=== PATIENT | female | born 1980 | race Caucasian/White ===

== ENCOUNTER → 2018-09-19 | Outpatient (CLI) | payer OTHER ==
--- NOTE | 2018-09-19 16:13 | XR ---
EXAMINATION TYPE: XR chest 2V DATE OF EXAM: 09/19/2018 COMPARISON: NONE HISTORY: Cough TECHNIQUE: Frontal and lateral views of the chest are obtained. FINDINGS: There is no focal air space opacity, pleural effusion, or pneumothorax seen. The cardiac silhouette size is within normal limits. The osseous structures are intact. IMPRESSION: No acute cardiopulmonary process.
== END | disposition home or self-care (01) ==
LOC: RADXRMAIN 15:27
PROVIDERS: ATTEND Family Medicine
DX: R05 Cough (principal)
CPT/HCPCS: 71046

== ENCOUNTER → 2020-07-26 | Outpatient (CLI) | payer OTHER ==
--- NOTE | 2020-07-26 15:33 | XR ---
EXAMINATION TYPE: XR chest 2V DATE OF EXAM: 07/26/2020 COMPARISON: Chest x-ray September 19, 2018 HISTORY: Cough. TECHNIQUE: Frontal and lateral views of the chest are obtained. FINDINGS: Hair strands overlying lung apices. There is no new suspicious focal air space opacity, ple ural effusion, or pneumothorax seen. The cardiac silhouette size remains within normal limits. The osseous structures are intact. IMPRESSION: No suspicious new acute pulmonary process.
[2020-07-26 19:18] LABS: Basophils # (A) 0.07 X 10*3/uL (0.00-0.10); Basophils % (A) 0.7 %; Eosinophils % (A) 3.2 %; HCT 41.9 % (37.2-46.3); HGB 13.8 g/dL (12.0-15.0); Lymphocytes # (A) 3.56 X 10*3/uL (0.90-5.00); MCH 29.7 pg (27.0-32.0); MCHC 32.9 g/dL (32.0-37.0); MCV 90.3 fL (80.0-97.0); Mean Platelet Volume 9.7 fL (9.5-12.2); Monocytes # (A) 0.75 X 10*3/uL (0.20-1.00); Neutrophils # (A) 4.67 X 10*3/uL (1.80-7.70); Neutrophils % (A) 49.8 %; Platelet Count 465 X 10*3/uL (140-440); RBC 4.64 X 10*6/uL (4.10-5.20); RDW 13.9 % (11.5-14.5); WBC 9.38 X 10*3/uL (4.50-10.00)
[2020-07-26 19:26] LABS: African American GFR (CKD) 105.4 (60.0-200.0); Albumin 4.5 g/dL (3.80-4.90); Albumin/Globulin Ratio 1.96 (1.60-3.17); Anion Gap 4.2 mmol/L (4.00-12.00); Calcium 9.7 mg/dL (8.7-10.3); Carbon Dioxide 26.8 mmol/L (21.6-31.8); Globulin 2.3 g/dL (1.6-3.3); Non-African American GFR(CKD) 90.9 (60.0-200.0); Potassium 4.8 mmol/L (3.5-5.5); Total Bilirubin 0.3 mg/dL (0.3-1.2); Total Protein 6.8 g/dL (6.2-8.2)
[2020-07-26 21:17] LABS: Erythrocyte Sedimentation Rate 13 mm/Hr (0-20)
== END | disposition home or self-care (01) ==
LOC: LABWHC1 14:59
PROVIDERS: ATTEND Family Medicine
DX: R05 Cough (principal); I10 Essential (primary) hypertension; B89 Unspecified parasitic disease
CPT/HCPCS: 80053; 85652; 85025; 71046; 36415; U0003; C9803

== ENCOUNTER 2020-09-06 11:52 | Observation (INO) | payer OTHER ==
[2020-09-06 12:45] LABS: Basophils # (A) 0.1 k/uL (0-0.2); Basophils % (A) 0 %; Eosinophils # (A) 0.6 k/uL (0-0.7); Eosinophils % (A) 3 %; HCT 41.8 % (34.0-46.0); HGB 14.4 gm/dL (11.4-16.0); Lymphocytes # (A) 2.1 k/uL (1.0-4.8); Lymphocytes % (A) 11 %; MCH 30.5 pg (25.0-35.0); MCHC 34.4 g/dL (31.0-37.0); MCV 88.6 fL (80.0-100.0); Monocytes % (A) 6 %; Neutrophils # (A) 14.3 k/uL (1.3-7.7); Neutrophils % (A) 79 %; Platelet Count 506 k/uL (150-450); RBC 4.71 m/uL (3.80-5.40); RDW 13.1 % (11.5-15.5); WBC 18.2 k/uL (3.8-10.6)
--- NOTE | 2020-09-06 12:53 | ED ---
General Adult HPI - General Chief complaint: GI Bleed Stated complaint: abd pain Time Seen by Provider: 09/06/20 11:55 Source: patient, RN notes reviewed, old records reviewed Mode of arrival: ambulatory Limitations: no limitations - History of Present Illness Initial comments: This is a 40-year-old female who presents emergency Department with a past m edical history significant for ulcers colitis per patient states for last week she's been having some abdominal cramping but this morning she started having bright red blood and some bright red clotting. Patient denies any fever chills. Patient denies any dysuria hematuria or urinary frequency per patient denies any vomiting. Patient denies any chest pain difficult breathing shortness of breath. Patient denies any back pain. - Related Data Home Medications Medication Instructions Recorded Confirmed Acetaminophen Tab [Tylenol] 650 mg PO Q4H PRN 09/06/20 09/06/20 Dicyclomine [Bentyl] 10 mg PO TID PRN 09/06/20 09/06/20 Famotidine [Pepcid AC] 10 mg PO BID PRN 09/06/20 09/06/20 L.acidoph,Paracasei, B.lactis 1 cap PO DAILY 09/06/20 09/06/20 [Probiotic] Mesalamine [Delzicol] 800 mg PO TID 09/06/20 09/06/20 Simethicone [Gas-X] 125 mg PO QID PRN 09/06/20 09/06/20 Allergies Allergy/AdvReac Type Severity Reaction Status Date / Time alprazolam [From Xanax] Allergy Unknown Verified 09/06/20 14:07 azithromycin Allergy Unknown Verified 09/06/20 13:29 codeine Allergy Unknown Verified 09/06/20 13:29 fentanyl citrate Allergy Unknown Verified 09/06/20 13:29 [From Sublimaze (PF)] Review of Systems ROS Statement: Those systems with pertinent positive or pertinent negative responses have been documented in the HPI. ROS Other: All systems not noted in ROS Statement are negative. Past Medical History Past Medical History: Cancer Additional Past Medical History / Comment(s): Ulceritve colitis, cervical CA History of Any Multi-Drug Resistant Organisms: None Reported Past Surgical History: No Surgical Hx Reported Additional Past Surgical History / Comment(s): Cervial sx Past Psychological History: No Psychological Hx Reported Smoking Status: Current every day smoker Past Alcohol Use History: None Reported Past Drug Use History: Marijuana General Exam - General Exam Comments Initial Comments: GENERAL: Patient is well-developed and well-nourished. Patient is nontoxic and well- hydrated and is in mild distress. ENT: Neck is soft and supple. No significant lymphadenopathy is noted. Oropharynx is clear. Moist mucous membranes. Neck has full range of motion without eliciting any pain. EYES: The sclera were anicteric and conjunctiva were pink and moist. Extraocular movements were intact and pupils were equal round and reactive to light. Eyelids were unremarkable. PULMONARY: Unlabored respirations. Good breath sounds bilaterally. No audible rales rhonchi or wheezing was noted. CARDIOVASCULAR: There is a regular rate and rhythm without any murmurs gallops or rubs. ABDOMEN: Minimal lower abdominal pain SKIN: Skin is clear with no lesions or rashes and otherwise unremarkable. NEUROLOGIC: Patient is alert and oriented x3. Cranial nerves II through XII are grossly intact. Motor and sensory are also intact. Normal speech, volume and content. Symmetrical smile. MUSCULOSKELETAL: Normal extremities with adequate strength and full range of motion. No lower extremity swelling or edema. No calf tenderness. LYMPHATICS: No significant lymphadenopathy is noted PSYCHIATRIC: Normal psychiatric evaluation. Limitations: no limitations Course Vital Signs 09/06/20 09/06/20 09/06/20 11:55 12:00 12:30 Temperature 98.2 F Pulse Rate 71 72 71 Respiratory 22 15 16 Rate Blood Pressure 113/68 113/68 111/79 O2 Sat by Pulse 100 99 98 Oximetry 09/06/20 09/06/20 09/06/20 13:30 15:00 15:30 Temperature Pulse Rate 68 56 L 62 Respiratory 18 18 18 Rate Blood Pressure 109/71 106/78 O2 Sat by Pulse 98 Oximetry Medical Decision Making - Medical Decision Making EKG shows normal sinus rhythm at 73 bpm IN interval 112 QRS is 90 QT interval 400 QTC is 440. Patient's EKG shows no ST segment elevation or depression. - Lab Data Result diagrams: 09/06/20 12:31 09/06/20 12:31 Lab Results 09/06/20 09/06/20 09/06/20 Range/Units 12:31 12:31 12:31 WBC 18.2 H (3.8-10.6) k/uL RBC 4.71 (3.80-5.40) m/uL Hgb 14.4 (11.4-16.0) gm/dL Hct 41.8 (34.0-46.0) % MCV 88.6 (80.0-100.0) fL MCH 30.5 (25.0-35.0) pg MCHC 34.4 (31.0-37.0) g/dL RDW 13.1 (11.5-15.5) % Plt Count 506 H (150-450) k/uL MPV 7.0 Neutrophils % 79 % Lymphocytes % 11 % Monocytes % 6 % Eosinophils % 3 % Basophils % 0 % Neutrophils # 14.3 H (1.3-7.7) k/uL Lymphocytes # 2.1 (1.0-4.8) k/uL Monocytes # 1.0 (0-1.0) k/uL Eosinophils # 0.6 (0-0.7) k/uL Basophils # 0.1 (0-0.2) k/uL PT 9.9 (9.0-12.0) sec INR 0.9 (<1.2) APTT 23.9 (22.0-30.0) sec Sodium 140 (137-145) mmol/L Potassium 4.0 (3.5-5.1) mmol/L Chloride 109 H (98-107) mmol/L Carbon Dioxide 22 (22-30) mmol/L Anion Gap 9 mmol/L BUN 10 (7-17) mg/dL Creatinine 0.69 (0.52-1.04) mg/dL Est GFR (CKD-EPI)AfAm >90 (>60 ml/min/1.73 sqM) Est GFR (CKD-EPI)NonAf >90 (>60 ml/min/1.73 sqM) Glucose 99 (74-99) mg/dL Calcium 9.7 (8.4-10.2) mg/dL Total Bilirubin 0.3 (0.2-1.3) mg/dL AST 23 (14-36) U/L ALT 15 (4-34) U/L Alkaline Phosphatase 77 (38-126) U/L Total Protein 7.2 (6.3-8.2) g/dL Albumin 4.3 (3.5-5.0) g/dL Stool Occult Blood (Negative) C. difficile (EIA) Intrp (Negative) Blood Type Blood Type Confirm Blood Type Recheck Bld Type Recheck Status Antibody Screen Spec Expiration Date 09/06/20 09/06/20 09/06/20 Range/Units 12:31 12:51 12:51 WBC (3.8-10.6) k/uL RBC (3.80-5.40) m/uL Hgb (11.4-16.0) gm/dL Hct (34.0-46.0) % MCV (80.0-100.0) fL MCH (25.0-35.0) pg MCHC (31.0-37.0) g/dL RDW (11.5-15.5) % Plt Count (150-450) k/uL MPV Neutrophils % % Lymphocytes % % Monocytes % % Eosinophils % % Basophils % % Neutrophils # (1.3-7.7) k/uL Lymphocytes # (1.0-4.8) k/uL Monocytes # (0-1.0) k/uL Eosinophils # (0-0.7) k/uL Basophils # (0-0.2) k/uL PT (9.0-12.0) sec INR (<1.2) APTT (22.0-30.0) sec Sodium (137-145) mmol/L Potassium (3.5-5.1) mmol/L Chloride (98-107) mmol/L Carbon Dioxide (22-30) mmol/L Anion Gap mmol/L BUN (7-17) mg/dL Creatinine (0.52-1.04) mg/dL Est GFR (CKD-EPI)AfAm (>60 ml/min/1.73 sqM) Est GFR (CKD-EPI)NonAf (>60 ml/min/1.73 sqM) Glucose (74-99) mg/dL Calcium (8.4-10.2) mg/dL Total Bilirubin (0.2-1.3) mg/dL AST (14-36) U/L ALT (4-34) U/L Alkaline Phosphatase (38-126) U/L Total Protein (6.3-8.2) g/dL Albumin (3.5-5.0) g/dL Stool Occult Blood Positive H (Negative) C. difficile (EIA) Intrp Negative (Negative) Blood Type Blood Type Confirm O Positive Blood Type Recheck Bld Type Recheck Status Antibody Screen Spec Expiration Date 09/06/20 Range/Units 13:04 WBC (3.8-10.6) k/uL RBC (3.80-5.40) m/uL Hgb (11.4-16.0) gm/dL Hct (34.0-46.0) % MCV (80.0-100.0) fL MCH (25.0-35.0) pg MCHC (31.0-37.0) g/dL RDW (11.5-15.5) % Plt Count (150-450) k/uL MPV Neutrophils % % Lymphocytes % % Monocytes % % Eosinophils % % Basophils % % Neutrophils # (1.3-7.7) k/uL Lymphocytes # (1.0-4.8) k/uL Monocytes # (0-1.0) k/uL Eosinophils # (0-0.7) k/uL Basophils # (0-0.2) k/uL PT (9.0-12.0) sec INR (<1.2) APTT (22.0-30.0) sec Sodium (137-145) mmol/L Potassium (3.5-5.1) mmol/L Chloride (98-107) mmol/L Carbon Dioxide (22-30) mmol/L Anion Gap mmol/L BUN (7-17) mg/dL Creatinine (0.52-1.04) mg/dL Est GFR (CKD-EPI)AfAm (>60 ml/min/1.73 sqM) Est GFR (CKD-EPI)NonAf (>60 ml/min/1.73 sqM) Glucose (74-99) mg/dL Calcium (8.4-10.2) mg/dL Total Bilirubin (0.2-1.3) mg/dL AST (14-36) U/L ALT (4-34) U/L Alkaline Phosphatase (38-126) U/L Total Protein (6.3-8.2) g/dL Albumin (3.5-5.0) g/dL Stool Occult Blood (Negative) C. difficile (EIA) Intrp (Negative) Blood Type O Positive Blood Type Confirm Blood Type Recheck No Previous Record Bld Type Recheck Status CABO Indicated Antibody Screen NEGATIVE Spec Expiration Date 09/09/20202324 Disposition Clinical Impression: GI bleed, History of ulcerative colitis Disposition: ADMITTED IP TO THIS HOSP Referrals: Isaac Conner MD [Primary Care Provider] - 1-2 days Time of Disposition: 16:15
[2020-09-06 12:58] LABS: ALT 15 U/L (4-34); AST 23 U/L (14-36); African American GFR (CKD) >90 (>60 ml/min/1.73 sqM); Albumin 4.3 g/dL (3.5-5.0); Alkaline Phosphatase 77 U/L (38-126); Anion Gap 9 mmol/L; Blood Urea Nitrogen 10 mg/dL (7-17); Calcium 9.7 mg/dL (8.4-10.2); Carbon Dioxide 22 mmol/L (22-30); Chloride 109 mmol/L (98-107); Glucose 99 mg/dL (74-99); Non-African American GFR(CKD) >90 (>60 ml/min/1.73 sqM); Sodium 140 mmol/L (137-145); Total Bilirubin 0.3 mg/dL (0.2-1.3); Total Protein 7.2 g/dL (6.3-8.2)
[2020-09-06 13:31] LABS: INR 0.9 (<1.2); Partial Thromboplastin Time 23.9 sec (22.0-30.0); Prothrombin Time 9.9 sec (9.0-12.0)
[2020-09-06] MEDS ORDERED: SODIUM CHLORIDE 0.9% 1,000 ML IV ONE (16:15)
[2020-09-06] MEDS ORDERED: LORazepam 2 MG/ML INJ IV STA (16:57)
[2020-09-06] MEDS ORDERED: ONDANSETRON 4 MG/2 ML VIAL IVP PRN (16:58)
[2020-09-06 17:33] LABS: HCT 41.3 % (34.0-46.0); HGB 13.7 gm/dL (11.4-16.0); MCH 29.8 pg (25.0-35.0); MCHC 33.2 g/dL (31.0-37.0); MCV 89.9 fL (80.0-100.0); Mean Platelet Volume 7.3; Platelet Count 460 k/uL (150-450); RBC 4.59 m/uL (3.80-5.40); RDW 13.6 % (11.5-15.5)
[2020-09-06] MEDS ORDERED: FAMOTIDINE 20 MG TAB PO PRN (21:11)
[2020-09-06] MEDS: NICOTINE 21MG/24HR PATCH TRANSDERM SCH (22:24)
[2020-09-06] MEDS: LORazepam 2 MG/ML INJ IV PRN (22:25)
[2020-09-07] MEDS: BALSALAZIDE DISODIUM 750 MG CAPSULE PO SCH ×4 (00:25→20:58)
[2020-09-07] MEDS: metroNIDAZOLE-NS PMX 500 MG in SALINE 1 100ML.BAG IVPB SCH ×3 (00:27→15:38)
[2020-09-07] MEDS: LORazepam 2 MG/ML INJ IV PRN ×3 (04:07→23:24)
--- NOTE | 2020-09-07 04:17 | HP ---
HISTORY AND PHYSICAL HISTORY OF PRESENT ILLNESS: This 40-year-old white female came with 5 episodes of GI bleeding, bright red blood per rectum. GI consult is pending. Monitor hemoglobin and check again in the morning. He is having no chest pain, shortness of breath. Denies any fever, chills. No frequency, urgency, hesitancy. MEDICATIONS: Home medicines: Bentyl 10 t.i.d., Pepcid 10 b.i.d., Tylenol 650 q.6 p.r.n., probiotic daily, mesalamine 800 mg t.i.d., Gas-X 125 q.i.d. p.r.n. ALLERGIES: XANAX, AZITHROMYCIN, CODEINE, FENTANYL. REVIEW OF SYSTEMS: Fourteen-point review of systems negative except for mentioned in HPI. PAST MEDICAL HISTORY: Cancer, ulcerative colitis, cervical cancer. SOCIAL HISTORY: Current everyday smoker, marijuana. PHYSICAL EXAMINATION: Vital signs stable. Afebrile. Cardiovascular S1, S2. Lungs transmitted upper sounds. GI soft, nontender. Hematology: Negative Homans. Psych: Fair mood and affect. Ophthalmologic: Pupils equal, round, reactive. SKIN: No rash, excoriations or bruising. Blood pressure is 109-106 over 60s to 70s. O2 98%, pulse 60s to 70s. EXTREMITIES: No cyanosis, clubbing, edema. Labs reviewed. ASSESSMENT: 1. Gastrointestinal bleed. 2. History of ulcerative colitis. 3. Worsening bleeding. Stabilize for hemoglobin. Check in the morning. CBC. Wait for GI consult. Continue on possible Flagyl IV. MMODL / IJN: [id number] /
[2020-09-07] MEDS: NICOTINE 21MG/24HR PATCH TRANSDERM SCH (07:36)
[2020-09-07] MEDS: LACTOBACILLUS ACIDOPH & BULGAR 1 EACH PACKET PO SCH (07:37)
[2020-09-07] MEDS: methylPREDNISolone SOD SUCCI 40 MG/ML 1 ML VIAL IV SCH ×3 (10:00→23:23)
[2020-09-07] MEDS ORDERED: PIPERACILLIN-TAZOBACTAM 3.375 GM in SODIUM CHLORIDE 0.9% 100 ML IVPB SCH (10:00)
[2020-09-07 10:25] LABS: Basophils # (A) 0.04 X 10*3/uL (0.00-0.10); Basophils % (A) 0.6 %; Eosinophils % (A) 4.4 %; HCT 38.4 % (37.2-46.3); HGB 12.7 g/dL (12.0-15.0); Lymphocytes # (A) 2.66 X 10*3/uL (0.90-5.00); MCH 30.4 pg (27.0-32.0); MCHC 33.1 g/dL (32.0-37.0); MCV 91.9 fL (80.0-97.0); Mean Platelet Volume 9.7 fL (9.5-12.2); Monocytes # (A) 0.86 X 10*3/uL (0.20-1.00); Monocytes % (A) 12.6 %; Neutrophils # (A) 2.95 X 10*3/uL (1.80-7.70); Neutrophils % (A) 43.3 %; Platelet Count 410 X 10*3/uL (140-440); RBC 4.18 X 10*6/uL (4.10-5.20); RDW 14.1 % (11.5-14.5); WBC 6.82 X 10*3/uL (4.50-10.00)
[2020-09-07] MEDS: IOPAMIDOL CONTRAST (ORAL USE) VIAL PO PRN ×2 (10:35→11:31)
--- NOTE | 2020-09-07 12:44 | CT ---
EXAMINATION TYPE: CT abdomen pelvis w con DATE OF EXAM: 09/07/2020 COMPARISON: None HISTORY: Generalized abdominal pain. History of ulcerative colitis. CT DLP: 1178 mGycm CONTRAST: CT scan of the abdomen and pelvis is performed with Oral Contrast and with IV Contrast, patient injec stacia with 100ml mL of Isovue 300. FINDINGS: LUNG BASES-: No visible nodule. No infiltrate. LIVER/GB: No calcified gallstones. No space occupying hepatic lesion. Biliary tree is of normal ca liber. PANCREAS: No inflammation. No distinct mass. SPLEEN: No splenic enlargement. No lesion seen. ADRENALS: No nodule. No thickening. KIDNEYS/BLADDER: No hydronephrosis. No nephrolithiasis. No distinct renal mass. Urinary bladder g rossly unremarkable. BOWEL: Normal appendix. Normal bowel caliber. No inflammation. GENITAL ORGANS: Left ovarian cyst measuring 2.4 cm. Uterus and right ovary are unremarkable. LYMPH NODES: No greater than 1cm abdominal or pelvic lymph nodes are appreciated. AORTA: No significant abnormality. OSSEOUS STRUCTURES: No significant abnormality is seen. OTHER: No significant additional abnormality is seen. IMPRESSION: 1. Left ovarian cyst measuring 2.4 cm.
[2020-09-07 15:55] LABS: African American GFR (CKD) 123.9 (60.0-200.0); Albumin 3.8 g/dL (3.80-4.90); Albumin/Globulin Ratio 1.65 (1.60-3.17); Anion Gap 10.1 mmol/L (4.00-12.00); BUN/Creat Ratio 11.43 Ratio (12.00-20.00); Calcium 8.8 mg/dL (8.7-10.3); Carbon Dioxide 20.9 mmol/L (21.6-31.8); Globulin 2.3 g/dL (1.6-3.3); Non-African American GFR(CKD) 106.9 (60.0-200.0); Potassium 3.9 mmol/L (3.5-5.5); Total Bilirubin 0.3 mg/dL (0.2-1.2); Total Protein 6.1 g/dL (6.2-8.2)
--- NOTE | 2020-09-07 16:29 | P.CONS ---
History of Present Illness - Reason for Consult Consult date: 09/07/20 Abdominal pain, GI bleed Requesting physician: Isaac Conner - Chief Complaint GI bleed, abdominal pain - History of Present Illness This is a pleasant 40-year-old white female who presented to the emergency department with complaints of severe onset of abdominal pain and bright red blood per rectum that started yesterday along with passing clots. He has a past medical history that includes cervical cancer, ulcerative colitis, she is a pack per day smoker, and daily marijuana and a user. She states that she started having bleeding on Sunday into Sunday, however there was some nausea and diarrhea that started a week ago she was having diarrhea up to as much as once an hour for 12 hours. She states due to her history of ulcerative colitis she put herself on clear liquid diet. She was taking mesalamine and Bentyl at home, she states that over the last year she has not had any problems with her ulcerative colitis therefore she was decreasing her dosage on her mesalamine on her own. However she started to increase it back to the daily dose of 3 times a day. She states that she follows with Dr. Lucian Devlin states she was diagnosed 2-3 years ago she was last hospitalized at [facility] approximately 3 years ago. She states her last endoscopy she had an upper and lower she believes 2-3 years ago at [facility]. Since being admitted to the hospital she's not had further bleeding this morning, however it did state she still had some blood with her stool last night. She still having diarrhea which he states is approximately every other hour. Her Clostridium difficile toxin was negative. Review of Systems REVIEW OF SYSTEMS: CARDIOPULMONARY: No chest pain or shortness of breath. Gastrointestinal: Abdominal pain. No nausea or vomiting. No hematemesis, coffee-ground emesis. For rectal bleeding. GENITOURINARY: No dysuria or hematuria. MUSCULOSKELETAL: Reports normal range of motion., Joint pain. SKIN: No rashes. No jaundice. ENDOCRINE: No chills, fevers. No excessive weight gain or loss. No polydipsia or polyuria. PSYCHIATRIC: Unremarkable. NEUROLOGY: No change in mental status. Denies dizziness, headache. ENT: Vision unremarkable. CONSTITUTIONAL: No recent weight loss. No fever, chills, night sweats. Past Medical History Past Medical History: Cancer Additional Past Medical History / Comment(s): Ulceritve colitis, cervical CA History of Any Multi-Drug Resistant Organisms: None Reported Past Surgical History: No Surgical Hx Reported Additional Past Surgical History / Comment(s): Cervial sx Past Psychological History: No Psychological Hx Reported Smoking Status: Current every day smoker Past Alcohol Use History: None Reported Past Drug Use History: Marijuana Medications and Allergies Home Medications Medication Instructions Recorded Confirmed Type Acetaminophen Tab [Tylenol] 650 mg PO Q4H PRN 09/06/20 09/06/20 History Dicyclomine [Bentyl] 10 mg PO TID PRN 09/06/20 09/06/20 History Famotidine [Pepcid AC] 10 mg PO BID PRN 09/06/20 09/06/20 History L.acidoph,Paracasei, B.lactis 1 cap PO DAILY 09/06/20 09/06/20 History [Probiotic] Mesalamine [Delzicol] 800 mg PO TID 09/06/20 09/06/20 History Simethicone [Gas-X] 125 mg PO QID PRN 09/06/20 09/06/20 History Allergies Allergy/AdvReac Type Severity Reaction Status Date / Time alprazolam [From Xanax] Allergy Unknown Verified 09/06/20 14:07 azithromycin Allergy Unknown Verified 09/06/20 13:29 codeine Allergy Unknown Verified 09/06/20 13:29 fentanyl citrate Allergy Unknown Verified 09/06/20 13:29 [From Sublimaze (PF)] Physical Exam Vitals: Vital Signs Temp Pulse Pulse Pulse Resp BP BP 09/07/20 14:07 99 F 76 16 91/55 09/07/20 07:00 98.7 F 66 16 87/55 09/07/20 00:47 98.0 F 74 16 97/65 09/06/20 18:52 98.5 F 60 14 95/67 09/06/20 18:18 98.4 F 56 L 18 88/52 09/06/20 16:44 95 18 115/72 09/06/20 15:30 62 18 Pulse Ox 09/07/20 14:07 96 09/07/20 07:00 97 09/07/20 00:47 97 09/06/20 18:52 96 09/06/20 18:18 99 09/06/20 16:44 98 09/06/20 15:30 Intake and Output 09/07/20 09/07/20 09/07/20 06:59 14:59 22:59 Intake Total 1440 1979 Balance 1440 1979 Intake: Intake, IV Titration 900 800 Amount Piperacillin-Tazobactam 3 100 .375 gm In Sodium Chloride 0.9% 100 ml @ 25 mls/hr IVPB Q8H [facility] Rx#: [id number] Sodium Chloride 0.9% 1, 800 600 000 ml @ 75 mls/hr IV . [id number] ONE Rx#:[id number] metroNIDAZOLE-NS PMX 500 100 100 mg In Saline 1 100ml.bag @ 100 mls/hr IVPB Q8HR [facility] Rx#:[id number] Oral 540 1180 Other: Voiding Method Toilet # Voids 3 5 General appearance: The patient is alert, oriented, appears in no acute distre ss. HET: Head is normocephalic and atraumatic. Conjunctiva pink, sclera anicteric. Oropharynx is clear without lesions. Neck: Supple without lymphadenopathy. Trachea midline. Heart: S1 S2. Regular rate and rhythm. Lungs: Clear to auscultation. Abdomen: Soft, nontender, nondistended. Extremities: Normal skin color and turgor. No pedal edema. Neurological: No focal deficits. Alert and oriented 3. Results CBC & Chem 7: 09/07/20 04:35 09/07/20 04:35 Labs: Abnormal Lab Results - Last 24 Hours (Table) 09/06/20 09/06/20 09/07/20 Range/Units 12:51 16:40 04:35 WBC 15.0 H (3.8-10.6) k/uL Plt Count 460 H (150-450) k/uL C-Reactive Protein 2.5 H (<1.0) mg/dL Stool Occult Blood Positive H (Negative) Microbiology - Last 24 Hours (Table) 09/06/20 12:31 Stool Culture - Preliminary Stool CT scan - abdomen: report reviewed (Left ovarian cyst measuring 2.4 cm. No inflammation seen in the bowel.) Assessment and Plan (1) GI bleed Narrative/Plan: This a 40-year-old female who presented to the emergency room with complaints of abdominal pain and lower GI bleed that started Sunday night into Sunday. She states she was having multiple episodes of bloody bowel movements. She states she has a history of ulcerative colitis diagnosed 2-3 years ago and follows with . Her outpatient medications included mesalamine 800 mg 3 times a day, however patient had decreased and was only taking 2 tablets a day due to cost of medication. She also states that the week before she had some nausea and diarrhea with one day having diarrhea every hour up to 12 hours. She states her last and this Evaluation was at [facility] 2-3 years ago where she states she had an upper and lower endoscopy. At that time she was diagnosed with the ulcerative colitis. She had a C. diff upon admission that was reported as negative. Her symptoms are improving already today. CT of the abdomen was ordered which does not show any bowel inflammation, only a left ovarian cyst measuring 2.4 cm. Current Visit: Yes Status: Acute Code(s): K92.2 - GASTROINTESTINAL HEMORRHAGE, UNSPECIFIED SNOMED Code(s): 60747911 (2) History of ulcerative colitis Current Visit: Yes Status: Acute Code(s): Z87.19 - PERSONAL HISTORY OF OTHER DISEASES OF THE DIGESTIVE SYSTEM SNOMED Code(s): 628945826 Plan: 1. Continue symptomatic and supportive care 2. Clear liquid diet 3. CT of abdomen and pelvis ordered and reviewed 4. Sed rate CRP ordered 5. Solu-Medrol 20 mg every 8 hours 6. Discontinue IV antibiotics 7. Repeat CBC in the morning Thank you for this consultation, we will continue to follow Dr. Jean Pierre Woods I agree with the dictator's note, documented as a scribe by Queenie Barger.
[2020-09-08] MEDS: SIMETHICONE 80 MG CHEWABLE PO PRN ×2 (01:00→16:04)
--- NOTE | 2020-09-08 06:18 | PN ---
PROGRESS NOTE A white female who has had minimal bleeding today. Hemoglobin is stable. GI doctor saw her and ordered a CT scan of the abdomen and pelvis which is normal. She apparently cut down her ulcerative colitis medicines from 8 pills a day to 2 pills a day to save money. Cardiovascular S1-S2. Lungs clear. GI soft, increased bowel sounds. Hematology negative Homans. ASSESSMENT: 1. Ulcerative colitis. 2. Gastrointestinal bleed, stable. Back on home medications. IV Flagyl, IV Solu-Medrol. Discharge home in the morning if she is stable. MMODL / IJN: [id number] /
[2020-09-08] MEDS: LORazepam 2 MG/ML INJ IV PRN ×2 (08:17→16:05)
[2020-09-08] MEDS: DICYCLOMINE 10 MG CAP PO PRN ×2 (08:17→16:04)
[2020-09-08] MEDS: NICOTINE 21MG/24HR PATCH TRANSDERM SCH (08:17)
[2020-09-08] MEDS: methylPREDNISolone SOD SUCCI 40 MG/ML 1 ML VIAL IV SCH ×2 (08:18→16:05)
[2020-09-08] MEDS: LACTOBACILLUS ACIDOPH & BULGAR 1 EACH PACKET PO SCH (08:18)
[2020-09-08] MEDS: BALSALAZIDE DISODIUM 750 MG CAPSULE PO SCH ×3 (08:19→22:04)
--- NOTE | 2020-09-08 15:01 | P.PN ---
Subjective Progress Note Date: 09/08/20 Principal diagnosis: Abdominal pain, GI bleed This is a 40-year-old female who presented to emergency department with complaints of abdominal pain and bloody bowel movements. She has a past medical history including ulcerative colitis which was diagnosed 2-3 years ago. She fol lows with and was on mesalamine, however she was not taking as prescribed and only taking 2 tablets a day. Today she still having some mild lower abdominal discomfort, diarrhea has decreased in frequency, reported as dark brown. Denies any nausea or vomiting, is tolerating her clear liquid and would like to increase her diet. Objective - Vital Signs Vital signs: Vital Signs Temp 97.9 F 09/08/20 07:00 Pulse 72 09/08/20 07:00 Resp 18 09/08/20 07:00 BP 101/59 09/08/20 07:00 Pulse Ox 96 09/08/20 07:00 Intake & Output 09/07/20 09/08/20 09/08/20 18:59 06:59 18:59 Intake Total 2280 Balance 2280 Intake: Intake, IV Titration 800 Amount Piperacillin-Tazobactam 3 100 .375 gm In Sodium Chloride 0.9% 100 ml @ 25 mls/hr IVPB Q8H [facility] Rx#: [id number] Sodium Chloride 0.9% 1, 600 000 ml @ 75 mls/hr IV . [id number] ONE Rx#:[id number] metroNIDAZOLE-NS PMX 500 100 mg In Saline 1 100ml.bag @ 100 mls/hr IVPB Q8HR [facility] Rx#:[id number] Oral 1480 Other: Voiding Method Toilet # Voids 5 2 # Bowel Movements 1 - Exam General appearance: The patient is alert, oriented, appears in no acute distress. HET: Head is normocephalic and atraumatic. Conjunctiva pink. Sclera anicteric. Neck: Supple without lymphadenopathy. Abdomen: Soft, nontender, nondistended with bowel sounds. No guarding or rigidity. Extremities: Normal skin color and turgor. No pedal edema Skin: No rashes, no jaundice Neurological: No focal deficits. Alert and oriented 3. - Labs CBC & Chem 7: 09/07/20 04:35 09/07/20 04:35 Labs: Abnormal Lab Results - Last 24 Hours (Table) 09/07/20 09/07/20 Range/Units 04:35 04:35 Carbon Dioxide 20.9 L (21.6-31.8) mmol/L BUN 8.0 L (9.0-27.0) mg/dL BUN/Creatinine Ratio 11.43 L (12.00-20.00) Ratio C-Reactive Protein 2.5 H (<1.0) mg/dL Total Protein 6.1 L (6.2-8.2) g/dL Assessment and Plan (1) GI bleed Narrative/Plan: This a 40-year-old female who presented to the emergency room with complaints of abdominal pain and lower GI bleed that started Sunday night into Sunday. She states she was having multiple episodes of bloody bowel movements. She states she has a history of ulcerative colitis diagnosed 2-3 years ago and follows with . Her outpatient medications included mesalamine 800 mg 3 times a d ay, however patient had decreased and was only taking 2 tablets a day due to cost of medication. She also states that the week before she had some nausea and diarrhea with one day having diarrhea every hour up to 12 hours. She states her last and this Evaluation was at [facility] 2-3 years ago where she states she had an upper and lower endoscopy. At that time she was diagnosed with the ulcerative colitis. She had a C. diff upon admission that was reported as negative. Her symptoms are improving already today. CT of the abdomen was ordered which does not show any bowel inflammation, only a left ovarian cyst measuring 2.4 cm. Current Visit: Yes Status: Acute Code(s): K92.2 - GASTROINTESTINAL HEMORRHAG E, UNSPECIFIED SNOMED Code(s): 91849460 (2) History of ulcerative colitis Current Visit: Yes Status: Acute Code(s): Z87.19 - PERSONAL HISTORY OF OTHER DISEASES OF THE DIGESTIVE SYSTEM SNOMED Code(s): 551754597 Plan: 1. Continue symptomatic and supportive care 2. Liquid diet, advance to low fiber diet in the morning 3. CT of abdomen and pelvis ordered and reviewed 4. Continue Solu-Medrol 20 mg every 8 hours 5. Will transition to oral prednisone for long taper dose upon discharge, with close follow-up with gastroenterology Thank you for this consultation, we will continue to follow Dr. Jean Pierre Woods I agree with the dictator's note, documented as a scribe by Queenie Barger.
[2020-09-09] MEDS: methylPREDNISolone SOD SUCCI 40 MG/ML 1 ML VIAL IV SCH ×3 (00:24→16:56)
[2020-09-09] MEDS: DICYCLOMINE 10 MG CAP PO PRN ×3 (00:25→21:27)
[2020-09-09] MEDS: LORazepam 2 MG/ML INJ IV PRN ×3 (00:25→21:26)
[2020-09-09] MEDS: BALSALAZIDE DISODIUM 750 MG CAPSULE PO SCH ×3 (08:46→21:38)
[2020-09-09] MEDS: LACTOBACILLUS ACIDOPH & BULGAR 1 EACH PACKET PO SCH (08:47)
[2020-09-09] MEDS: NICOTINE 21MG/24HR PATCH TRANSDERM SCH (08:47)
[2020-09-09] MEDS: ACETAMINOPHEN TAB 325 MG TAB PO PRN ×2 (11:20→21:26)
[2020-09-09 12:26] LABS: HGB 14.3 gm/dL (11.4-16.0); RBC 4.83 m/uL (3.80-5.40); WBC 15.7 k/uL (3.8-10.6)
[2020-09-09 12:27] LABS: MCH 29.6 pg (25.0-35.0); MCHC 32.4 g/dL (31.0-37.0); MCV 91.2 fL (80.0-100.0); Mean Platelet Volume 7.1; Platelet Count 469 k/uL (150-450); RDW 13.7 % (11.5-15.5)
--- NOTE | 2020-09-09 15:53 | P.PN ---
Subjective Progress Note Date: 09/09/20 Principal diagnosis: Abdominal pain, GI bleed This is a 40-year-old female who presented to emergency department with complaints of abdominal pain and bloody bowel movements. She has a past medical history including ulcerative colitis which was diagnosed 2-3 years ago. She fol lows with and was on mesalamine, however she was not taking as prescribed and only taking 2 tablets a day. Today she still having some mild lower abdominal discomfort, diarrhea has decreased in frequency, reported having blood in stool again, which she reports as a dark room. Denies any nausea or vomiting, is tolerating her diet. She is afebrile. Objective - Vital Signs Vital signs: Vital Signs Temp 97.8 F 09/09/20 07:00 Pulse 58 L 09/09/20 07:00 Resp 18 09/09/20 07:00 BP 104/72 09/09/20 07:00 Pulse Ox 99 09/09/20 07:00 Intake & Output 09/08/20 09/09/20 09/09/20 18:59 06:59 18:59 Other: Voiding Method Toilet # Voids 3 3 - Exam General appearance: The patient is alert, oriented, appears in no acute distress. HET: Head is normocephalic and atraumatic. Conjunctiva pink. Sclera anicteric. Neck: Supple without lymphadenopathy. Abdomen: Soft, nontender, nondistended with bowel sounds. No guarding or rigidity. Extremities: Normal skin color and turgor. No pedal edema Skin: No rashes, no jaundice Neurological: No focal deficits. Alert and oriented 3. - Labs CBC & Chem 7: 09/09/20 12:06 09/07/20 04:35 Labs: Microbiology - Last 24 Hours (Table) 09/06/20 12:31 Stool Culture - Preliminary Stool Assessment and Plan (1) GI bleed Narrative/Plan: This a 40-year-old female who presented to the emergency room with complaints of abdominal pain and lower GI bleed that started Sunday night into Sunday. She states she was having multiple episodes of bloody bowel movements. She states she has a history of ulcerative colitis diagnosed 2-3 years ago and follows with . Her outpatient medications included mesalamine 800 mg 3 times a day, however patient had decreased and was only taking 2 tablets a day due to cost of medication. She also states that the week before she had some nausea and diarrhea with one day having diarrhea every hour up to 12 hours. She states her last and this Evaluation was at [facility] 2-3 years ago where she state s she had an upper and lower endoscopy. At that time she was diagnosed with the ulcerative colitis. She had a C. diff upon admission that was reported as negative. Her symptoms are improving already today. CT of the abdomen was ordered which does not show any bowel inflammation, only a left ovarian cyst measuring 2.4 cm. Current Visit: Yes Status: Acute Code(s): K92.2 - GASTROINTESTINAL HEMORRHAGE, UNSPECIFIED SNOMED Code(s): 09636631 (2) History of ulcerative colitis Current Visit: Yes Status: Acute Code(s): Z87.19 - PERSONAL HISTORY OF OTHER DISEASES OF THE DIGESTIVE SYSTEM SNOMED Code(s): 526461955 Plan: 1. Continue symptomatic and supportive care 2. Tinea low fiber diet 3. CT of abdomen and pelvis ordered and reviewed 4. Continue Solu-Medrol 20 mg every 8 hours, discontinue Solu-Medrol and start prednisone 40 mg by mouth tomorrow 5. Will transition to oral prednisone for long taper dose 40 mg daily and decrease by 10mg weekly upon discharge, with close follow-up with gastroenterology 6. C. difficile toxin repeated, negative Thank you for this consultation, we will continue to follow Dr. Epstein I agree with the dictator's note, documented as a scribe by Queenie Barger.
[2020-09-09] MEDS: SIMETHICONE 80 MG CHEWABLE PO PRN (16:56)
[2020-09-09] MEDS ORDERED: MESALAMINE 1,000 MG SUPP RECTAL SCH (21:00)
--- NOTE | 2020-09-09 22:53 | P.PN ---
Subjective This is a pleasant 41 years old female with past medical history of ulcerative colitis presents because of abdominal pain and suspected there is some blood in the stool secondary to inflammatory bowel disease, she was evaluated by GI team and started on some Medrol 20 mg and will keep monitoring Patient today developed new left-sided abdominal pain and states she has 4 bouts of loose bowel movement. C. diff recheck that was negative. Her IV Solu-Medrol 20 mg switch to oral prednisone 40 mg daily per GI team Patient informed about her left ovarian cyst Objective - Vital Signs Vital signs: Vital Signs Temp 98.0 F 09/09/20 14:33 Pulse 68 09/09/20 14:33 Resp 18 09/09/20 14:33 BP 100/65 09/09/20 14:33 Pulse Ox 99 09/09/20 14:33 Intake & Output 09/08/20 09/09/20 09/09/20 18:59 06:59 18:59 Other: Voiding Method Toilet # Voids 3 3 - Exam GENERAL: The patient is alert and oriented x3, not in any acute distress. Well developed, well nourished. HEENT: Pupils are round and equally reacting to light. EOMI. No scleral icterus. No conjunctival pallor. Normocephalic, atraumatic. No pharyngeal erythema. No thyromegaly. CARDIOVASCULAR: S1 and S2 present. No murmurs, rubs, or gallops. PULMONARY: Chest is clear to auscultation, no wheezing or crackles. ABDOMEN: Soft, nontender, nondistended, normoactive bowel sounds. No palpable organomegaly. MUSCULOSKELETAL: No joint swelling or deformity. EXTREMITIES: No cyanosis, clubbing, or pedal edema. NEUROLOGICAL: Gross neurological examination did not reveal any focal deficits. SKIN: No rashes. no petechiae. - Labs CBC & Chem 7: 09/09/20 12:06 09/07/20 04:35 Labs: Abnormal Lab Results - Last 24 Hours (Table) 09/09/20 Range/Units 12:06 WBC 15.7 H (3.8-10.6) k/uL Plt Count 469 H (150-450) k/uL Microbiology - Last 24 Hours (Table) 09/06/20 12:31 Stool Culture - Preliminary Stool Assessment and Plan Assessment: Acute gastroenteritis versus irritable bowel syndrome Possible acute exacerbation of ulcerative colitis, with mildly elevated C- reactive protein but normal ESR. Mild and improving Left ovarian cyst Plan: This is a pleasant 40 years old female who presents with gastroenteritis. Ulcerative colitis. GI team of the case. Continue with IV steroids, switched to oral steroids by GI team when ready Patient informed about her left ovarian cyst, follow-up with [facility] [employer] Labs and medication were reviewed.. Continue same treatment. Continue with symptomatic treatment. Resume home medication. Monitor lytes and vitals. DVT and GI prophylaxis. Further recommendations as per clinical course of the patient DVT prophylaxis subcutaneous heparin GI Prophylaxis: Pepcid
--- NOTE | 2020-09-09 22:54 | P.PN ---
Subjective This is a pleasant 41 years old female with past medical history of ulcerative colitis presents because of abdominal pain and suspected there is some blood in the stool secondary to inflammatory bowel disease, she was evaluated by GI team and started on some Medrol 20 mg and will keep monitoring Objective - Vital Signs Vital signs: Vital Signs Temp 97.9 F 09/08/20 07:00 Pulse 72 09/08/20 07:00 Resp 18 09/08/20 07:00 BP 101/59 09/08/20 07:00 Pulse Ox 96 09/08/20 07:00 Intake & Output 09/07/20 09/08/20 09/08/20 18:59 06:59 18:59 Intake Total 2280 Balance 2280 Intake: Intake, IV Titration 800 Amount Piperacillin-Tazobactam 3 100 .375 gm In Sodium Chloride 0.9% 100 ml @ 25 mls/hr IVPB Q8H [facility] Rx#: [id number] Sodium Chloride 0.9% 1, 600 000 ml @ 75 mls/hr IV . [id number] ONE Rx#:[id number] metroNIDAZOLE-NS PMX 500 100 mg In Saline 1 100ml.bag @ 100 mls/hr IVPB Q8HR [facility] Rx#:[id number] Oral 1480 Other: Voiding Method Toilet # Voids 5 2 # Bowel Movements 1 - Exam GENERAL: The patient is alert and oriented x3, not in any acute distress. Well developed, well nourished. HEENT: Pupils are round and equally reacting to light. EOMI. No scleral icterus. No conjunctival pallor. Normocephalic, atraumatic. No pharyngeal erythema. No thyromegaly. CARDIOVASCULAR: S1 and S2 present. No murmurs, rubs, or gallops. PULMONARY: Chest is clear to auscultation, no wheezing or crackles. ABDOMEN: Soft, nontender, nondistended, normoactive bowel sounds. No palpable organomegaly. MUSCULOSKELETAL: No joint swelling or deformity. EXTREMITIES: No cyanosis, clubbing, or pedal edema. NEUROLOGICAL: Gross neurological examination did not reveal any focal deficits. SKIN: No rashes. no petechiae. - Labs CBC & Chem 7: 09/09/20 12:06 09/07/20 04:35 Labs: Abnormal Lab Results - Last 24 Hours (Table) 05/25/21 Range/Units 04:35 Carbon Dioxide 20.9 L (21.6-31.8) mmol/L BUN 8.0 L (9.0-27.0) mg/dL BUN/Creatinine Ratio 11.43 L (12.00-20.00) Ratio Total Protein 6.1 L (6.2-8.2) g/dL Assessment and Plan Assessment: Acute gastroenteritis versus irritable bowel syndrome Possible acute exacerbation of ulcerative colitis, with mildly elevated C- reactive protein but normal ESR. Mild and improving Left ovarian cyst Plan: This is a pleasant 40 years old female who presents with gastroenteritis. Ulcerative colitis. GI team of the case. Continue with IV steroids, continue with IV fluid Patient informed about her left ovarian cyst, follow-up with [employer] Labs and medication were reviewed.. Continue same treatment. Continue with symptomatic treatment. Resume home medication. Monitor lytes and vitals. DVT and GI prophylaxis. Further recommendations as per clinical course of the patient DVT prophylaxis mechanical GI Prophylaxis: Pepcid
[2020-09-10] MEDS: HEPARIN SODIUM,PORCINE/PF 5,000 UNIT/0.5 ML SYRINGE SQ SCH ×2 (00:12→08:13)
[2020-09-10 02:54] VITALS: RESP 16
[2020-09-10] MEDS: LACTOBACILLUS ACIDOPH & BULGAR 1 EACH PACKET PO SCH (08:13)
[2020-09-10] MEDS: NICOTINE 21MG/24HR PATCH TRANSDERM SCH (08:13)
[2020-09-10] MEDS: BALSALAZIDE DISODIUM 750 MG CAPSULE PO SCH ×2 (08:14→15:28)
[2020-09-10] MEDS ORDERED: predniSONE 20 MG TAB PO SCH (09:00)
[2020-09-10] MEDS: SIMETHICONE 80 MG CHEWABLE PO PRN (09:13)
[2020-09-10] MEDS: DICYCLOMINE 10 MG CAP PO PRN (10:46)
[2020-09-10 12:55] VITALS: BMI 33.5
--- NOTE | 2020-09-10 14:26 | PN ---
PROGRESS NOTE DATE OF DICTATION: September 10, 2020 The patient is a 40-year-old pleasant white female admitted to hospital with exacerbation of ulcerative colitis. She was started on IV steroids for 3 days. She is doing better. It was discontinued and oral prednisone was started at 40 mg daily this morning. She had 4 bowel movements today with no bleeding. Abdominal pain has improved. No nausea, vomiting. On a regular diet tolerating well. PHYSICAL EXAMINATION: She appears comfortable. No apparent distress. Vital signs stable. Blood pressure is 116/69, pulse rate 61, temperature 98. HEENT examination unremarkable. Conjunctivae pink. Sclerae anicteric. Oral cavity no lesions. Neck: No JVD or lymph node enlargement. Chest was clear to auscultation. HEART: Regular rate and rhythm. ABDOMEN: Soft. Bowel sounds are positive. No organomegaly. EXTREMITIES: No pedal edema. SKIN: No rashes. NEUROLOGIC: Alert and oriented x3. No focal deficits. LABS: WBC 15.7, hemoglobin 14, platelets 469. Rest of the labs are within normal limits. IMPRESSION: Exacerbation of ulcerative colitis. Presently on oral prednisone 40 mg daily. She is doing clinically better. She has 4 bowel movements this morning. No further bleeding. Stool for C difficile toxin and cultures are negative. RECOMMENDATIONS: 1. Continue with prednisone 40 mg daily and she was advised to taper it by 5 mg every week. 2. Continue Canasa suppository once at bedtime. 3. Colazal 3 tablets 3 times daily. 4. Follow up in office in 2 weeks following discharge from the hospital. MMODL / IJN: [id number] /
[2020-09-10] MEDS ORDERED: LORazepam 0.5 MG TAB PO PRN (15:16)
[2020-09-10 15:17] VITALS: BP 137/83; PULSE 72; TEMP 98.1
--- NOTE | 2020-09-12 15:00 | P.DS ---
Providers Date of admission: 09/06/20 16:19 Attending physician: Isaac Conner Consults: 09/06/20 16:15 Consult Physician Urgent Consulting Provider: Norbert Epstein Consult Reason/Comments: GI bleed Do you want consulting provider notified?: Yes 09/10/20 14:06 Consult Physician Urgent Consulting Provider: Vani Sheets Consult Reason/Comments: left ovarian cyst Do you want consulting provider notified?: Yes Primary care physician: Isaac Conner [facility] Course: Diagnoses: Acute gastroenteritis versus irritable bowel syndrome acute exacerbation of ulcerative colitis, with mildly elevated C-reactive protein but normal ESR. improving Left ovarian cyst, patient did not want to wait for bundle shaker and said she will follow up as an outpatient Hospital course: This is a pleasant 41 years old female with past medical history of ulcerative colitis presents because of abdominal pain and suspected there is some blood in the stool secondary to inflammatory bowel disease, she was evaluated by GI team and started on some Medrol 20 mg and patient kept improving. C. diff recheck that was negative. On the day of discharge she tolerates diet well, had a bowel movement is close to normal with diarrhea improved. No other symptoms or complaints, patient is eager to be discharged today that she does not want to wait for the bundle shaker for her left ovary and cyst and told me she will follow up with her as an outpatient. Risk of tumor including but not limited to cancer are explained and she verbalized understanding and acceptance. Patient was cleared for discharge by Dr. Woods from GI I talked to Dr. woods and per her recommendation she will be discharged on tapered steroids, canasa supposetary and her home dose of delzicol because colazal is not covered by her insurance, i called the pt and informed her and she agreed Problems and management plan were discussed with the patient and he verbalized understanding and acceptance Patient was found stable and can be discharged home however he needs follow-up as an outpatient. Patient was instructed to follow up with PCP Dr. Conner within one week and patient agrees Patient agrees with the appointments made for her with Dr. Woods on 09/29 and stitch with follow-up Patient instructed to follow up with bundle shaker Dr. Sheets within 7-10 days for her left ovarian cyst and she agrees to call and make her own appointment Physical exam Gen: patient is a AAOx3, no distress CVS: S1-S2, RRR, no murmur Lungs: B/L CTA, no wheezing Abdomen: soft, no distention, no tenderness, positive bowel sounds Extremity: no leg edema or induration Time spent more than 35 minutes Plan - Discharge Summary Discharge Rx Participant: No New Discharge Prescriptions: New Nicotine 21Mg/24Hr Patch [Habitrol] 1 patch TRANSDERM DAILY@0700 #14 patch Famotidine [Pepcid] 20 mg PO BID PRN #60 tab PRN Reason: GERD Calcium Carbonate/Vitamin D3 [Calcium 500 mg-Vit D3 5 mcg (200 Unit)] 1 each PO BID #60 tablet predniSONE 10 mg PO DIRECTED #70 tab Mesalamine [Canasa] 1,000 mg RECTAL HS #16 supp Continue Simethicone [Gas-X] 125 mg PO QID PRN PRN Reason: GAS Mesalamine [Delzicol] 800 mg PO TID Dicyclomine [Bentyl] 10 mg PO TID PRN #90 cap PRN Reason: IBS L.acidoph,Paracasei, B.lactis [Probiotic] 1 cap PO DAILY Acetaminophen Tab [Tylenol] 650 mg PO Q4H PRN PRN Reason: Pain Discontinued Famotidine [Pepcid AC] 10 mg PO BID PRN PRN Reason: GERD Discharge Medication List Acetaminophen Tab [Tylenol] 650 mg PO Q4H PRN 09/06/20 [History] L.acidoph,Paracasei, B.lactis [Probiotic] 1 cap PO DAILY 09/06/20 [History] Mesalamine [Delzicol] 800 mg PO TID 09/06/20 [History] Simethicone [Gas-X] 125 mg PO QID PRN 09/06/20 [History] Dicyclomine [Bentyl] 10 mg PO TID PRN #90 cap 09/09/20 [Rx] Calcium Carbonate/Vitamin D3 [Calcium 500 mg-Vit D3 5 mcg (200 Unit)] 1 each PO BID #60 tablet 09/10/20 [Rx] Famotidine [Pepcid] 20 mg PO BID PRN #60 tab 09/10/20 [Rx] Mesalamine [Canasa] 1,000 mg RECTAL HS #16 supp 09/10/20 [Rx] Nicotine 21Mg/24Hr Patch [Habitrol] 1 patch TRANSDERM DAILY@0700 #14 patch 09/10/20 [Rx] predniSONE 10 mg PO DIRECTED #70 tab 09/10/20 [Rx] Follow up Appointment(s)/Referral(s): Isaac Conner MD [Primary Care Provider] - 1-2 days Vani Sheets DO [Doctor of Osteopathic Medicine] - 10 Days (for left ovarian cyst) Shreya Woods MD [STAFF PHYSICIAN] - 09/29/20 10:45 am Patient Instructions/Handouts: Gastrointestinal Bleeding (DC) Activity/Diet/Wound Care/Special Instructions: Resume previous diet, low carbohydrate diet Activity is restricted until you see your doctor Discharge Disposition: HOME SELF-CARE
== END 2020-09-10 18:25 | disposition home or self-care (01) ==
LOC: EC 11:52 → 6NMEDSUR 16:19
PROVIDERS: ADMIT Family Medicine; ATTEND Family Medicine
DX: K51.911 Ulcerative colitis, unspecified with rectal bleeding (principal); R79.82 Elevated C-reactive protein (CRP); N83.202 Unspecified ovarian cyst, left side; F17.210 Nicotine dependence, cigarettes, uncomplicated; Z85.41 Personal history of malignant neoplasm of cervix uteri; Z20.822 Contact with and (suspected) exposure to COVID-19; Z79.1 Long term (current) use of non-steroidal anti-inflammatories (NSAID); Z88.6 Allergy status to analgesic agent; Z88.1 Allergy status to other antibiotic agents; Z88.5 Allergy status to narcotic agent; Z88.8 Allergy status to other drugs, medicaments and biological substances
CPT/HCPCS: 96376 ×4; 96361 ×3; 96365; 96366; 96367; 96372; 96375 ×2; 99285; 36415; 93005; 86900; 86901; 80053 ×2; 85652; 85025 ×2; 85027 ×2; 85610; 85730; 86850; 86140; 82272; 87324 ×2; 87045 ×2; 87046 ×2; 87635; 74177; G0378 ×5; S4990 ×5; J2543; J2060 ×4; J2920 ×3; J2405; J7512; Q9967; J1790; J1644

== ENCOUNTER → 2020-10-14 | Outpatient (CLI) | payer OTHER | END | disposition home or self-care (01) | LOC: LABWHC1 11:19 | PROVIDERS: ATTEND Family Medicine | DX: Z00.00 Encounter for general adult medical examination without abnormal findings (principal) | CPT/HCPCS: 36415; 86480 ==

== ENCOUNTER → 2020-11-12 | Outpatient (CLI) | payer OTHER ==
[2020-11-12 22:55] LABS: Basophils # (A) 0.01 X 10*3/uL (0.00-0.10); Basophils % (A) 0.1 %; Eosinophils # (A) 0 X 10*3/uL (0.04-0.35); Eosinophils % (A) 0 %; HCT 43.1 % (37.2-46.3); HGB 13.9 g/dL (12.0-15.0); Lymphocytes # (A) 1.04 X 10*3/uL (0.90-5.00); Lymphocytes % (A) 9.8 %; MCH 29.9 pg (27.0-32.0); MCHC 32.3 g/dL (32.0-37.0); MCV 92.7 fL (80.0-97.0); Mean Platelet Volume 9.4 fL (9.5-12.2); Monocytes # (A) 0.21 X 10*3/uL (0.20-1.00); Neutrophils # (A) 9.26 X 10*3/uL (1.80-7.70); Neutrophils % (A) 87.6 %; Platelet Count 455 X 10*3/uL (140-440); RBC 4.65 X 10*6/uL (4.10-5.20); RDW 14.6 % (11.5-14.5); WBC 10.57 X 10*3/uL (4.50-10.00)
[2020-11-13 01:08] LABS: Erythrocyte Sedimentation Rate 11 mm/Hr (0-20)
[2020-11-13 05:50] LABS: African American GFR (CKD) 105.4 (60.0-200.0); Albumin 4.6 g/dL (3.80-4.90); Albumin/Globulin Ratio 1.92 (1.60-3.17); Anion Gap 10.9 mmol/L (4.00-12.00); BUN/Creat Ratio 21.25 Ratio (12.00-20.00); C Reactive Protein 0.7 mg/dL (0.0-0.8); Calcium 9.7 mg/dL (8.7-10.3); Carbon Dioxide 23.1 mmol/L (21.6-31.8); Globulin 2.4 g/dL (1.6-3.3); Non-African American GFR(CKD) 90.9 (60.0-200.0); Potassium 4.6 mmol/L (3.5-5.5); Total Bilirubin 0.3 mg/dL (0.3-1.2)
== END | disposition home or self-care (01) ==
LOC: LABWHC1 13:56
PROVIDERS: ATTEND Internal Medicine
DX: K51.00 Ulcerative (chronic) pancolitis without complications (principal)
CPT/HCPCS: 36415; 80053; 82306; 82607; 82746; 83993; 85025; 85652; 86140; 87324

== ENCOUNTER → 2021-10-13 | Outpatient (CLI) | payer OTHER | END | disposition home or self-care (01) | LOC: LABWHC1 13:25 | PROVIDERS: ATTEND Family Medicine | DX: Z11.1 Encounter for screening for respiratory tuberculosis (principal) | CPT/HCPCS: 36415; 86480 ==

== ENCOUNTER → 2022-09-28 | Outpatient (CLI) | payer BC, OTHER | END | disposition home or self-care (01) | LOC: LABWHC1 14:39 | PROVIDERS: ATTEND Family Medicine | DX: Z11.1 Encounter for screening for respiratory tuberculosis (principal) | CPT/HCPCS: 36415; 86480 ==

== ENCOUNTER 2022-11-30 09:08 | Observation (INO) | payer BC, OTHER ==
[2022-11-30] MEDS ORDERED: ONDANSETRON 4 MG/2 ML VIAL IVP STA (09:44)
[2022-11-30] MEDS ORDERED: HYDROmorphone 0.5 MG/0.5 ML SYRINGE IVP STA (09:44)
[2022-11-30 10:25] LABS: Basophils # (A) 0.1 k/uL (0-0.2); Basophils % (A) 0 %; Eosinophils # (A) 0.3 k/uL (0-0.7); Eosinophils % (A) 2 %; HCT 48.8 % (34.0-46.0); HGB 16.2 gm/dL (11.4-16.0); Lymphocytes # (A) 1.7 k/uL (1.0-4.8); Lymphocytes % (A) 13 %; MCH 30.2 pg (25.0-35.0); MCHC 33.3 g/dL (31.0-37.0); MCV 90.9 fL (80.0-100.0); Mean Platelet Volume 7.3; Monocytes # (A) 0.7 k/uL (0-1.0); Monocytes % (A) 5 %; Neutrophils # (A) 10.6 k/uL (1.3-7.7); Neutrophils % (A) 79 %; Platelet Count 355 k/uL (150-450); RBC 5.37 m/uL (3.80-5.40); RDW 13.2 % (11.5-15.5); WBC 13.5 k/uL (3.8-10.6)
[2022-11-30 10:39] LABS: ALT 14 U/L (4-34); AST 23 U/L (14-36); African American GFR (CKD) >90 (>60 ml/min/1.73 sqM); Albumin 4.8 g/dL (3.5-5.0); Alkaline Phosphatase 71 U/L (38-126); Anion Gap 12 mmol/L; Blood Urea Nitrogen 10 mg/dL (7-17); Calcium 9.7 mg/dL (8.4-10.2); Carbon Dioxide 20 mmol/L (22-30); Chloride 103 mmol/L (98-107); Glucose 94 mg/dL (74-99); Non-African American GFR(CKD) >90 (>60 ml/min/1.73 sqM); Potassium 4.7 mmol/L (3.5-5.1); Sodium 135 mmol/L (137-145); Total Bilirubin 0.9 mg/dL (0.2-1.3); Total Protein 8.5 g/dL (6.3-8.2)
--- NOTE | 2022-11-30 10:46 | CT ---
EXAMINATION TYPE: CT soft tissue neck w con CT DLP: 263.8 mGycm, Automated exposure control for dose reduction was used. DATE OF EXAM: 11/30/2022 10:29 AM COMPARISON: CT neck 06/06/2013. CLINICAL INDICATION:Female, 42 years old with history of Dental infection, swelling; PHH, Right sided dental issue with swelling and trouble swallowing TECHNIQUE: Standard enhanced CT of the neck following intravenous administration of 100 cc of Isovue 300. Axial sections with coronal and sagittal reformats were obtained. FINDINGS: Brain: Visualized portions are grossly unremarkable. Orbits: Unremarkable Sinuses: Minimal left inferior maxilla sinus mucosal thickening. Suprahyoid Neck: The oropharynx, oral cavity, parapharyngeal and retropharyngeal spaces are clear and symmetric. Asymmetric fullness of the right nasopharynx (series 201, image 65). Infrahyoid Neck: The larynx, hypopharynx, and supraglottic area are clear and symmetric. Parotid Glands: Unremarkable. Submandibular Glands: Unremarkable. Musculoskeletal: No acute osseous pathology. Lymph nodes: Bilateral mildly enlarged cervical lymph nodes. Vascular structures: Visualized major arteries are patent without evidence of aneurysm. Thoracic Inlet/airway: Airway is patent. The lung apices are clear. Soft tissues/Thyroid: Thyroid is unremarkable. There is right mandibular/submental soft tissue fat st randing identified without organized fluid collection. No definitive periapical lucency. Asymmetric e nlargement of the right medial pterygoid muscle. Other: none. IMPRESSION 1. Right mandibular/submental soft tissue fat stranding with extension into the right parapharyngeal space suggestive of an infectious/inflammatory process without organized fluid collection to suggest abscess. No periapical lucency. 2. Asymmetric enlargement of the right medial pterygoid muscle likely related to myositis. Additiona l asymmetric fullness of the right nasopharynx which may reactive. Consider direct visualization. 3. Mildly enlarged cervical lymph nodes likely reactive to #1.
[2022-11-30] MEDS ORDERED: DEXAMETHASONE SOD PHOSPHATE 10 MG/ML 1 ML VIAL IVP STA (11:24)
--- NOTE | 2022-11-30 11:26 | ED ---
Recheck HPI - General Chief Complaint: Recheck/Abnormal Lab/Rx Stated Complaint: facial swelling Time Seen by Provider: 11/30/22 09:31 Source: patient, RN notes reviewed Mode of arrival: ambulatory Limitations: no limitations - History of Present Illness Initial Comments: 42-year-old female presents emergency Department chief complaint abdominal infection, facial swelling. Patient states she's had symptoms last few days. Patient saw PCP which she has been on antibiotics for over 5 days. Patient states is worsened and did contact him overnight advised her to come emergency 5 for admission. Patient states her jaw hurts states is typical control the pain. She denies any difficulty swallowing. She states prior pain is her right mandibular region, right submandibular area. Patient reports no fever. - Related Data Home Medications Medication Instructions Recorded Confirmed Amoxic-Pot Clav 875-125Mg 1 tab PO BID 11/30/22 11/30/22 [Augmentin 875-125] Mesalamine [Mesalamine Dr] 800 mg PO DAILY 11/30/22 11/30/22 Allergies Allergy/AdvReac Type Severity Reaction Status Date / Time azithromycin Allergy Unknown Verified 11/30/22 09:27 fentanyl citrate Allergy Unknown Verified 11/30/22 09:27 [From Sublimaze (PF)] alprazolam [From Xanax] AdvReac anxiety Verified 11/30/22 12:09 codeine AdvReac anxiety Verified 11/30/22 12:09 Review of Systems ROS Statement: Those systems with pertinent positive or pertinent negative responses have been documented in the HPI. ROS Other: All systems not noted in ROS Statement are negative. Past Medical History Past Medical History: Cancer Additional Past Medical History / Comment(s): Ulceritve colitis, cervical CA History of Any Multi-Drug Resistant Organisms: None Reported Past Surgical History: No Surgical Hx Reported Additional Past Surgical History / Comment(s): Cervial sx Past Psychological History: No Psychological Hx Reported Smoking Status: Current every day smoker Past Alcohol Use History: None Reported Past Drug Use History: Marijuana General Exam Limitations: no limitations General appearance: alert, in no apparent distress Head exam: Present: atraumatic, normocephalic, normal inspection Eye exam: Present: normal appearance, PERRL, EOMI. Absent: scleral icterus, con junctival injection, periorbital swelling ENT exam: Present: mucous membranes moist, other (Right some tubular swelling, tenderness palpation, poor dentition no difficulty swallow secretions). Absent: normal exam, normal oropharynx Neck exam: Present: normal inspection, full ROM. Absent: tenderness, meningismus, lymphadenopathy Respiratory exam: Present: normal lung sounds bilaterally. Absent: respiratory distress, wheezes, rales, rhonchi, stridor Cardiovascular Exam: Present: regular rate, normal rhythm, normal heart sounds. Absent: systolic murmur, diastolic murmur, rubs, gallop, clicks Course Vital Signs 11/30/22 11/30/22 09:25 12:22 Temperature 98.3 F Pulse Rate 80 88 Respiratory 18 16 Rate Blood Pressure 113/77 116/65 O2 Sat by Pulse 99 96 Oximetry Medical Decision Making - Medical Decision Making Was pt. sent in by a medical professional or institution (, PA, DIE ATTACHING MACHINE TENDER, urgent care, hospital, or longterm...) When possible be specific @ -[PCP none Did you speak to anyone other than the patient for history (EMS, parent, family, police, friend...)? What history was obtained from this source @ -No Did you review nursing and triage notes (agree or disagree)? Why? @ -I reviewed and agree with nursing and triage notes Were old charts reviewed (outside hosp., previous admission, EMS record, old EKG, old radiological studies, urgent care reports/EKG's, longterm records)? Report findings @ -No old charts were reviewed Differential Diagnosis (chest pain, altered mental status, abdominal pain women, abdominal pain men, vaginal bleeding, weakness, fever, dyspnea, syncope, headache, dizziness, GI bleed, back pain, seizure, CVA, palpatations, mental health, musculoskeletal)? @ -Dental infection, dental abscess, tonsillitis, strep, Helio angina, this is not all inclusive EKG interpreted by me (3pts min.). @ -As above X-rays interpreted by me (1pt min.). @ -None done CT interpreted by me (1pt min.). @ -CT soft tissue shows soft tissue swelling 7 maneuver, submental with inflammatory changes parapharyngeal region without abscess U/S interpreted by me (1pt. min.). @ -None done What testing was considered but not performed or refused? (CT, X-rays, U/S, labs)? Why? @ -None What meds were considered but not given or refused? Why? @ -None Did you discuss the management of the patient with other professionals (lindsey acosta i.e. , PA, DIE ATTACHING MACHINE TENDER, lab, RT, psych nurse, drug abuse social worker, watch crystal cutter, teacher, compliance review officer, test case developer)? Give summary @ -Dr. Tran updated on CT findings recommend patient be admitted patient started on [place] and will consult to ID Was smoking cessation discussed for >3mins.? @ -No Was critical care preformed (if so, how long)? @ -No Were there social determinants of health that impacted care today? How? (Homelessness, low income, unemployed, alcoholism, drug addiction, tr ansportation, low edu. Level, literacy, decrease access to med. care, long-term, rehab)? @ -No Was there de-escalation of care discussed even if they declined (Discuss DNR or withdrawal of care, Hospice)? DNR status @ -No What co-morbidities impacted this encounter? (DM, HTN, Smoking, COPD, CAD, Cancer, CVA, ARF, Chemo, Hep., AIDS, mental health diagnosis, sleep apnea, morbid obesity)? @ -None Was patient admitted / discharged? Hospital course, mention meds given and route, prescriptions, significant lab abnormalities, going to OR and other pertinent info. @ -Admitted on Unasyn with ID consult. Patient has no drainable abscess patient states she feels greatly improved after pain control, steroids and antibiotics. She agrees to admission Undiagnosed new problem with uncertain prognosis? @ -No Drug Therapy requiring intensive monitoring for toxicity (Heparin, Nitro, Insulin, Cardizem)? @ -No Were any procedures done? @ -No Diagnosis/symptom? @ -Acute Dental infection, facial swelling Acute, or Chronic, or Acute on Chronic? @ -[Acute Uncomplicated (without systemic symptoms) or Complicated (systemic symptoms)? @ -[Complicated ] Side effects of treatment? @ -[N] xacerbation, Progression, or Severe Exacerbation? @ -[N] oses a threat to life or bodily function? How? (Chest pain, USA, CT, pneumonia, PE, COPD, DKA, ARF, appy, cholecystitis, CVA, Diverticulitis, Homicidal, Suicidal, threat to staff... and all critical care pts) @ -[N] - Lab Data Result diagrams: 11/30/22 09:59 11/30/22 09:59 Lab Results 11/30/22 11/30/22 11/30/22 Range/Units 09:59 09:59 09:59 WBC 13.5 H (3.8-10.6) k/uL RBC 5.37 (3.80-5.40) m/uL Hgb 16.2 H (11.4-16.0) gm/dL Hct 48.8 H (34.0-46.0) % MCV 90.9 (80.0-100.0) fL MCH 30.2 (25.0-35.0) pg MCHC 33.3 (31.0-37.0) g/dL RDW 13.2 (11.5-15.5) % Plt Count 355 (150-450) k/uL MPV 7.3 Neutrophils % 79 % Lymphocytes % 13 % Monocytes % 5 % Eosinophils % 2 % Basophils % 0 % Neutrophils # 10.6 H (1.3-7.7) k/uL Lymphocytes # 1.7 (1.0-4.8) k/uL Monocytes # 0.7 (0-1.0) k/uL Eosinophils # 0.3 (0-0.7) k/uL Basophils # 0.1 (0-0.2) k/uL Sodium 135 L (137-145) mmol/L Potassium 4.7 (3.5-5.1) mmol/L Chloride 103 (98-107) mmol/L Carbon Dioxide 20 L (22-30) mmol/L Anion Gap 12 mmol/L BUN 10 (7-17) mg/dL Creatinine 0.69 (0.52-1.04) mg/dL Est GFR (CKD-EPI)AfAm >90 (>60 ml/min/1.73 sqM) Est GFR (CKD-EPI)NonAf >90 (>60 ml/min/1.73 sqM) Glucose 94 (74-99) mg/dL Plasma Lactic Acid Kelton 1.0 (0.7-2.0) mmol/L Calcium 9.7 (8.4-10.2) mg/dL Total Bilirubin 0.9 (0.2-1.3) mg/dL AST 23 (14-36) U/L ALT 14 (4-34) U/L Alkaline Phosphatase 71 (38-126) U/L Total Protein 8.5 H (6.3-8.2) g/dL Albumin 4.8 (3.5-5.0) g/dL Disposition Clinical Impression: Dental infection Disposition: ADMITTED IP TO THIS HOSP Condition: Fair Time of Disposition: 11:26
[2022-11-30] MEDS ORDERED: NALOXONE 0.4 MG/ML 1 ML VIAL IV PRN (11:43)
[2022-11-30] MEDS: AMPICILLIN-SULBACTAM 3 GM in SODIUM CHLORIDE 0.9% 100 ML IVPB SCH ×3 (12:05→23:56)
[2022-11-30] MEDS: SODIUM CHLORIDE 0.9% 1,000 ML IV SCH (12:06)
[2022-11-30] MEDS: ONDANSETRON 4 MG/2 ML VIAL IVP PRN (12:20)
[2022-11-30] MEDS: HYDROmorphone 0.5 MG/0.5 ML SYRINGE IVP PRN ×3 (12:20→23:57)
[2022-11-30] MEDS ORDERED: NICOTINE 14MG/24HR PATCH TRANSDERM STA (12:47)
--- NOTE | 2022-11-30 19:38 | XR ---
EXAMINATION TYPE: XR chest 2V DATE OF EXAM: 11/30/2022 COMPARISON: 07/26/20 HISTORY: Chest pain TECHNIQUE: Frontal and lateral views of the chest are obtained. FINDINGS: There is no focal air space opacity. No evidence for pneumothorax. No pleural effusion. The cardiac silhouette size is within normal limits. The osseous structures are grossly intact. IMPRESSION: 1. No acute cardiopulmonary process.
[2022-12-01] MEDS: SODIUM CHLORIDE 0.9% 1,000 ML IV SCH ×2 (01:08→17:36)
[2022-12-01] MEDS: HYDROmorphone 0.5 MG/0.5 ML SYRINGE IVP PRN ×3 (04:50→20:18)
[2022-12-01] MEDS: AMPICILLIN-SULBACTAM 3 GM in SODIUM CHLORIDE 0.9% 100 ML IVPB SCH ×3 (05:53→17:36)
[2022-12-01] MEDS ORDERED: BALSALAZIDE DISODIUM 750 MG CAPSULE PO SCH (10:15)
[2022-12-01] MEDS: NICOTINE 14MG/24HR PATCH TRANSDERM SCH (10:56)
--- NOTE | 2022-12-01 11:02 | CA ---
Transthoracic Echo Report Name: Angelika Lucio Age: 42 Gender: F : 1980 Exam Date: 12/01/2022 08:31 Exam Location: [facility] Ht (in): 62 Wt (lb): 185 Ordering Physician: Isaac Conner MD Attending/Referring Phys: Cytometry Technologist Orin Flores RDCS Procedure CPT: Indications: dyspnea Cardiac Hx: Technical Quality: Good Contrast 1: Total Dose (mL): Contrast 2: Total Dose (mL): MEASUREMENTS (Male / Female) Normal Values 2D ECHO LV Diastolic Diameter PLAX 4.6 cm 4.2 - 5.9 / 3.9 - 5.3 cm LV Systolic Diameter PLAX 3.0 cm IVS Diastolic Thickness 1.0 cm 0.6 - 1.0 / 0.6 - 0.9 cm LVPW Diastolic Thickness 1.0 cm 0.6 - 1.0 / 0.6 - 0.9 cm LV Relative Wall Thickness 0.4 RV Internal Dim ED PLAX 3.1 cm LA Systolic Diameter LX 3.6 cm 3.0 - 4.0 / 2.7 - 3.8 cm LV Diastolic Volume MOD 4C 97.3 cm??? LV Systolic Volume MOD 4C 43.2 cm??? LV Ejection Fraction MOD 4C 55.6 % LV Cardiac Index MOD 4C 1689.2 cm???/min???m??? LV Diastolic Length 4C 7.6 cm LV Systolic Length 4C 5.5 cm LV Diastolic Volume MOD 2C 96.2 cm??? LV Systolic Volume MOD 2C 36.4 cm??? LV Ejection Fraction MOD 2C 62.2 % LV Cardiac Index MOD 2C 1868.4 cm???/min???m??? LV Diastolic Length 2C 7.4 cm LV Systolic Length 2C 5.5 cm LA Volume 54.9 cm??? 18 - 58 / 22 - 52 cm??? M-MODE Aortic Root Diameter MM 3.4 cm MV E Point Septal Separation 0.3 cm AV Cusp Separation MM 2.3 cm DOPPLER AV Peak Velocity 138.7 cm/s AV Peak Gradient 7.7 mmHg MV Area PHT 3.6 cm??? Mitral E Point Velocity 89.6 cm/s Mitral A Point Velocity 54.5 cm/s Mitral E to A Ratio 1.6 MV Deceleration Time 209.1 ms MV E' Velocity 11.8 cm/s Mitral E to MV E' Ratio 7.6 TR Peak Velocity 215.8 cm/s TR Peak Gradient 18.6 mmHg Right Ventricular Systolic Press 23.4 mmHg FINDINGS Left Ventricle Left ventricular ejection fraction is estimated at 55-60 %. Left ventricular cavity size normal. Left ventricular wall thickness normal. Right Ventricle Normal right ventricular size. Right ventricular systolic pressure within normal limits. Right Atrium Normal right atrial size. Left Atrium Mildly increased left atrial volume. Mitral Valve Structurally normal mitral valve. Trace mitral regurgitation. Aortic Valve Trileaflet aortic valve. No aortic valve stenosis or regurgitation. Tricuspid Valve Structurally normal tricuspid valve. Mild tricuspid regurgitation. Pulmonic Valve Structurally normal pulmonic valve. No pulmonic regurgitation. Pericardium No pericardial effusion. Aorta Normal size aortic root and proximal ascending aorta. CONCLUSIONS Normal LV function Previewed by: Dr. Stalin Woods MD (Electronically Signed) Final Date: 01 December 2022 11:01
[2022-12-01] MEDS: HYDROcodone/APAP 5-325MG 1 EACH TAB PO PRN (13:19)
[2022-12-01] MEDS: DEXAMETHASONE SOD PHOSPHATE 4 MG/ML 1 ML VIAL IVP SCH (21:15)
--- NOTE | 2022-12-01 22:40 | P.CONS ---
History of Present Illness - Reason for Consult Consult date: 12/01/22 Dental infection Requesting physician: Isaac Conner - Chief Complaint Right lower jaw and neck pain swelling x few days - History of Present Illness Patient is a 42-year-old female with a past medical history significant for ulcerative colitis cervical cancer patient apparently has been dealing with the right lower jaw infected tooth however the patient mention she has not been able to see the dental surgeon regarding insurance issue patient presented to [facility] ER yesterday morning for evaluation of right lower jaw facial and neck swelling and redness that has been getting worse for the last 5 days patient complaining of sharp pain intensity is almost 10 out of 10 in severity with associated swelling and redness and the patient mention she was having difficulty swallowing or opening her jaw with the symptoms the patient was brought into the ER on presentation to the hospital the patient had did have a low-grade fever of 99 F patient did have white count 13.5 with a left shift creatinine was normal patient did have a CT of the soft tissue of the neck which did show right mandibular submental soft tissue fat stranding with extension into the right parapharyngeal space suggestive of infectious inflammatory process without organizing for collection, patient was started on Unasyn has been admitted to hospital infectious disease was consulted for further management of antibiotic therapy Review of Systems Positive point and negatives has been mentioned in the HPI, complete review of systems was performed and all other systems are negative Past Medical History Past Medical History: Cancer Additional Past Medical History / Comment(s): Ulceritve colitis, cervical CA History of Any Multi-Drug Resistant Organisms: None Reported Past Surgical History: No Surgical Hx Reported Additional Past Surgical History / Comment(s): Cervial sx Past Anesthesia/Blood Transfusion Reactions: Previous Problems w/ Anesthesia Additional Past Anesthesia/Blood Transfusion Reaction / Comm: Pt states it is difficult for her to get "put under" sometimes. Past Psychological History: No Psychological Hx Reported Smoking Status: Current every day smoker Past Alcohol Use History: None Reported Past Drug Use History: Marijuana Medications and Allergies Home Medications Medication Instructions Recorded Confirmed Type Amoxic-Pot Clav 875-125Mg 1 tab PO BID 11/30/22 11/30/22 History [Augmentin 875-125] Mesalamine [Mesalamine Dr] 800 mg PO DAILY 11/30/22 11/30/22 History Nicotine 14Mg/24Hr Patch [Habitrol] 1 patch TRANSDERM DAILY patch 12/03/22 Rx Allergies Allergy/AdvReac Type Severity Reaction Status Date / Time azithromycin Allergy Unknown Verified 11/30/22 09:27 fentanyl citrate Allergy Unknown Verified 11/30/22 09:27 [From Sublimaze (PF)] alprazolam [From Xanax] AdvReac anxiety Verified 11/30/22 12:09 codeine AdvReac anxiety Verified 11/30/22 12:09 Physical Exam Vitals: Vital Signs Temp Pulse Pulse Pulse Resp BP BP 12/01/22 11:06 66 12/01/22 10:04 71 94/61 12/01/22 07:15 98.4 F 63 16 94/58 12/01/22 02:00 98 F 92 16 101/62 11/30/22 20:45 99.0 F 70 18 132/85 11/30/22 16:00 66 18 117/65 11/30/22 12:22 88 16 116/65 BP Pulse Ox 12/01/22 11:06 116/64 12/01/22 10:04 12/01/22 07:15 100 12/01/22 02:00 96 11/30/22 20:45 97 11/30/22 16:00 97 11/30/22 12:22 96 Intake and Output 11/30/22 12/01/22 12/01/22 22:59 06:59 14:59 Intake Total 100 Balance 100 Intake: Intake, IV Titration 100 Amount Ampicillin-Sulbactam 3 gm 100 In Sodium Chloride 0.9% 100 ml @ 200 mls/hr IVPB Q6HR [facility] Rx#:[id number] Other: # Voids 2 Weight 83.915 kg GENERAL DESCRIPTION: Middle-aged female lying in bed, no distress. No tachypnea or accessory muscle of respiration use. HEENT: Shows Pallor , no scleral icterus. Oral mucous membrane is dry. Right lower jaw did have some swelling NECK: Trachea central, no thyromegaly. Right side of the neck did have some sw elling LUNGS: Unlabored breathing. Clear to auscultation anteriorly. No wheeze or crackle. HEART: S1, S2, regular rate and rhythm. No loud murmur ABDOMEN: Soft, no tenderness , guarding or rigidity, no organomegaly EXTREMITIES: No edema of feet. SKIN: No rash, no masses palpable. NEUROLOGICAL: The patient is awake, alert, oriented x3, mood and affect normal. Results CBC & Chem 7: 12/03/22 08:45 12/03/22 08:45 Assessment and Plan (1) Retropharyngeal abscess Status: Acute Code(s): J39.0 - RETROPHARYNGEAL AND PARAPHARYNGEAL ABSCESS SNOMED Code(s): 05922209 (2) Dental infection Status: Acute Code(s): K04.7 - PERIAPICAL ABSCESS WITHOUT SINUS SNOMED Code(s): 759690500 Plan: 1patient presented to hospital with the right lower jaw and neck area swelling and redness in this patient has been dealing with the right lower jaw infected tooth failing outpatient oral antibiotic therapy CT did shows right submandibular/submental soft tissue fat stranding and inflammation but no evidence of any organized fluid collection, will need to call for the polymicrobial oral ernesto live responsible for this infection originating from infected tooth 2-Unasyn 3 g every 6 hours to provide adequate antibiotic coverage and the pa tient seem to have shown some clinical improvement to continue We will follow on clinical condition and cultures to further adjust medication if needed Thank you for this consultation we will follow the patient along with you Dictation was produced using [employer] dictation software. please excuse any grammatical, word or spelling errors. Time with Patient: Greater than 30
[2022-12-02] MEDS ORDERED: DEXAMETHASONE SOD PHOSPHATE 4 MG/ML 1 ML VIAL IVP SCH
[2022-12-02] MEDS: AMPICILLIN-SULBACTAM 3 GM in SODIUM CHLORIDE 0.9% 100 ML IVPB SCH ×5 (00:45→23:35)
[2022-12-02] MEDS: SODIUM CHLORIDE 0.9% 1,000 ML IV SCH ×2 (00:47→21:57)
[2022-12-02] MEDS: HYDROcodone/APAP 5-325MG 1 EACH TAB PO PRN ×2 (00:58→13:17)
--- NOTE | 2022-12-02 03:35 | PN ---
PROGRESS NOTE SUBJECTIVE: The patient wants her tooth pulled out as she has pain. She has large amount of swelling in her face and her neck, which is improved with IV antibiotics. Dr. Hickman is involved. We are going to get a dental consult, breathing, I am going to give her breathing treatments, nicotine patch. Continue treatment with IV antibiotics. OBJECTIVE: PSYCH: She appears normal. CARDIOVASCULAR: S1, S2. LUNGS: Scattered wheeze. HEMATOLOGY: Negative for Homans. PLAN: Continue with IV antibiotics for her dental infections. Wait for dental surgical consult. Follow up in next 24 to 48 hours. MMODL / IJN: [id number] /
[2022-12-02] MEDS: DEXAMETHASONE SOD PHOSPHATE 4 MG/ML 1 ML VIAL IVP SCH ×2 (05:50→13:17)
[2022-12-02] MEDS: HYDROmorphone 0.5 MG/0.5 ML SYRINGE IVP PRN ×2 (06:45→21:55)
[2022-12-02] MEDS: NICOTINE 14MG/24HR PATCH TRANSDERM SCH (08:42)
[2022-12-02] MEDS: MESALAMINE 400 MG PO SCH (08:42)
[2022-12-02] MEDS: ONDANSETRON 4 MG/2 ML VIAL IVP PRN (21:57)
--- NOTE | 2022-12-02 23:16 | P.PN ---
Subjective Progress Note Date: 12/02/22 Principal diagnosis: R lower jaw and retropharyngeal infection Patient is a 42-year-old female with a past medical history significant for ulcerative colitis cervical cancer patient apparently has been dealing with the right lower jaw infected tooth for weeks presented to hospital with increasing swelling redness and pain to the right lower jaw and neck area and some difficulty swallowing CT of the neck that shows a significant for admission to the right parapharyngeal space. On today's evaluation that is 12/02/2022 the patient denies having any fever or any chills patient right-sided jaw and neck area swelling redness slight decrease denies any difficulty swallowing no nausea vomiting no abdominal pain no diarrhea. No blood work has been done today blood culture has been negative so far Objective - Vital Signs Vital signs: Vital Signs Temp 98.0 F 12/02/22 07:32 Pulse 50 L 12/02/22 07:32 Resp 18 12/02/22 07:32 BP 117/67 12/02/22 07:32 Pulse Ox 97 12/02/22 07:32 FiO2 Intake & Output 12/01/22 12/02/22 12/02/22 18:59 06:59 18:59 Intake Total 900 Balance 900 Intake: Intake, IV Titration 900 Amount Sodium Chloride 0.9% 1, 900 000 ml @ 75 mls/hr IV . [id number] [facility] Rx#:[id number] Other: Voiding Method Toilet Toilet - Exam GENERAL DESCRIPTION middle-aged female lying in bed in no distress HEENT: Right lower jaw did have some swelling and tenderness right neck swelling has decreased RESPIRATORY SYSTEM: Unlabored breathing , decreased breath sounds at bases HEART: S1 S2 regular rate and rhythm ,no loud murmurs ABDOMEN: Soft , no tenderness EXTREMITIES: No edema feet - Labs CBC & Chem 7: 11/30/22 09:59 11/30/22 09:59 Labs: Microbiology - Last 24 Hours (Table) 11/30/22 10:00 Blood Culture - Preliminary Blood 11/30/22 10:10 Blood Culture - Preliminary Blood Assessment and Plan (1) Dental infection Current Visit: Yes Status: Acute Code(s): K04.7 - PERIAPICAL ABSCESS WITHOUT SINUS SNOMED Code(s): 499882277 Plan: 1patient presented to hospital with the right lower jaw and neck area swelling and redness in this patient has been dealing with the right lower jaw infected tooth failing outpatient oral antibiotic therapy CT did shows right submandibular/submental soft tissue fat stranding and inflammation but no evidence of any organized fluid collection, will need to call for the polymicrobial oral ernesto live responsible for this infection originating from infected tooth 2patient seem to have shown some clinical improvement and we will continue patient on Unasyn for another 24 to 48 hours before transitioning her to oral antibiotics apparently the patient had been seen by the oral surgeon want the patient to follow-up in the office on Sunday for possible extraction of the tooth Dictation was produced using [employer] dictation software. please excuse any grammatical, word or spelling errors. Time with Patient: Less than 30
--- NOTE | 2022-12-03 00:50 | PN ---
PROGRESS NOTE SUBJECTIVE: A 42-year-old white female, remains on broad-spectrum antibiotics for cellulitis of the neck and periodontal abscess. OBJECTIVE: CARDIOVASCULAR: S1, S2. LUNGS: Clear. GI: Soft. HEMATOLOGY: Negative Homans. PSYCH: Fair mood and affect. NEUROLOGIC: Alert and oriented x3. ASSESSMENT AND PLAN: Follow up in next 24 to 48 hours for possible discharge to have dental surgery on Sunday. Abscess has greatly improved. PROGNOSIS: Guarded. MMODL / IJN: [id number] /
[2022-12-03] MEDS: AMPICILLIN-SULBACTAM 3 GM in SODIUM CHLORIDE 0.9% 100 ML IVPB SCH ×2 (06:35→12:14)
[2022-12-03] MEDS: SODIUM CHLORIDE 0.9% 1,000 ML IV SCH (06:36)
[2022-12-03] MEDS: NICOTINE 14MG/24HR PATCH TRANSDERM SCH (08:09)
[2022-12-03] MEDS: MESALAMINE 400 MG PO SCH (08:11)
[2022-12-03 10:39] LABS: Basophils % (A) 0 %; Eosinophils % (A) 0 %; HCT 39.8 % (34.0-46.0); Lymphocytes # (A) 3.4 k/uL (1.0-4.8); Lymphocytes % (A) 25 %; MCH 30.6 pg (25.0-35.0); MCHC 32.9 g/dL (31.0-37.0); Monocytes # (A) 0.7 k/uL (0-1.0); Monocytes % (A) 5 %; Neutrophils # (A) 9.7 k/uL (1.3-7.7); Neutrophils % (A) 70 %; Platelet Count 342 k/uL (150-450); RBC 4.28 m/uL (3.80-5.40); RDW 13.5 % (11.5-15.5); WBC 13.9 k/uL (3.8-10.6)
[2022-12-03 10:45] LABS: HGB 13.1 gm/dL (11.4-16.0)
[2022-12-03 10:51] LABS: ALT 23 U/L (4-34); AST 26 U/L (14-36); African American GFR (CKD) >90 (>60 ml/min/1.73 sqM); Albumin 3.8 g/dL (3.5-5.0); Albumin/Globulin Ratio 1.2; Alkaline Phosphatase 59 U/L (38-126); Anion Gap 10 mmol/L; Blood Urea Nitrogen 12 mg/dL (7-17); Carbon Dioxide 23 mmol/L (22-30); Chloride 105 mmol/L (98-107); Globulin 3.2 g/dL; Glucose 122 mg/dL (74-99); Non-African American GFR(CKD) >90 (>60 ml/min/1.73 sqM); Potassium 4.5 mmol/L (3.5-5.1); Sodium 138 mmol/L (137-145); Total Bilirubin 0.3 mg/dL (0.2-1.3)
[2022-12-03] MEDS: HYDROcodone/APAP 5-325MG 1 EACH TAB PO PRN (10:56)
--- NOTE | 2022-12-03 11:49 | CONS ---
CONSULTATION CHIEF COMPLAINT: "My face is swollen." HISTORY OF PRESENT ILLNESS: The patient is a 42-year-old female, who states that she has had pain associated with the lower right molar. This has been ongoing off and on for some time. She was started on an antibiotic and the swelling progressed to the point that she went to the ER. She was evaluated and admitted for IV antibiotics and further treatment. The patient was started on Unasyn. PAST MEDICAL HISTORY: Significant for ulcerative colitis. MEDICATIONS: Include an ulcerative colitis medicine. ALLERGIES: She has no known drug allergies. SOCIAL HISTORY: Unremarkable. PHYSICAL EXAMINATION: VITAL SIGNS: Reveals the patient to be afebrile with stable vital signs. GENERAL: She is alert, oriented x3. HEAD AND NECK: Reveal mild soft tissue swelling of the right mandible into the submandibular region. The area was mildly firm and tender to palpation. Intraoral examination revealed tooth #32 to have extensive decay. There is no pharyngeal swelling. The floor of the mouth is mildly tender and there is no buccal swelling. Tooth #15 also exhibited gross decay. LABORATORY DATA: Her lab work revealed a white count of 13.5. ASSESSMENT: 1. Carious teeth numbers 15 and 32. 2. Necrotic tooth #32. 3. Right buccal space and submandibular space infection. PLAN: The patient will continue IV Unasyn. She also was given 3 doses of Decadron q.8 hours. To apply heat to her face and continue with a soft diet. If the patient continues to improve, she will be discharged tomorrow or Sunday. MMODL / IJN: [id number] /
[2022-12-03 13:02] VITALS: BP 125/73; PULSE 53; RESP 16; TEMP 98.6
--- NOTE | 2022-12-03 13:56 | OP ---
OPERATIVE REPORT DATE OF SERVICE : 12/03/2022 SUBJECTIVE: The patient states that she has improved significantly with minimal swelling and pain to the right mandible. She is tolerating her regular diet without difficulty and has no trouble swallowing. PHYSICAL EXAMINATION: Reveals the patient to have minimal soft tissue swelling that is soft and nontender to the right mandibular face and face. Intraoral examination reveals no swelling with minimal tenderness. ASSESSMENT: The patient has improved dramatically and is tolerating the IV antibiotic. PLAN: The patient will be discharged to home today with p.o. antibiotics, Augmentin 875 b.i.d. The patient will apply heat to the area and will follow up in my office on 12/04/2022 for further treatment of teeth numbers #15 and #32. MMODL / IJN: [id number] /
== END 2022-12-03 14:02 | disposition home or self-care (01) ==
LOC: EC 09:08 → 6NMEDSUR 11:23 → 5NMEDONC 20:12
PROVIDERS: ADMIT Family Medicine; ATTEND Family Medicine
DX: K04.7 Periapical abscess without sinus (principal); K02.9 Dental caries, unspecified; K04.1 Necrosis of pulp; J39.0 Retropharyngeal and parapharyngeal abscess; M27.2 Inflammatory conditions of jaws; L03.221 Cellulitis of neck; K51.90 Ulcerative colitis, unspecified, without complications; F17.200 Nicotine dependence, unspecified, uncomplicated; Z79.899 Other long term (current) drug therapy; Z88.1 Allergy status to other antibiotic agents; Z88.5 Allergy status to narcotic agent; Z88.8 Allergy status to other drugs, medicaments and biological substances; Z85.41 Personal history of malignant neoplasm of cervix uteri; Z98.890 Other specified postprocedural states
CPT/HCPCS: 96376 ×4; 96361 ×2; 96366 ×5; 96365; 96375; 99285; 36415; 93306; 86735; 85379; 80053 ×2; 82150; 83605; 85025 ×2; 87040; 71046; 70491; G0378 ×5; S4990 ×4; J1100 ×3; J2405 ×2; J0295 ×4; J1170 ×3; Q9967

== ENCOUNTER 2023-02-16 20:40 | Observation (INO) | payer BC, OTHER ==
--- NOTE | 2023-02-16 22:43 | ED ---
General Adult HPI - General Chief complaint: Abdominal Pain Stated complaint: C-Diff Time Seen by Provider: 02/16/23 22:25 Source: patient Mode of arrival: wheelchair Limitations: no limitations - History of Present Illness Initial comments: Dictation was produced using [employer] dictation software. please excuse any grammatical, word or spelling errors. Chief Complaint: 42-year-old female presents emergency by with abdominal pain History of Present Illness: Patient is a 42-year-old female she has past medical history ulcerative colitis. Physical auscultation and complaining of severe abdominal pain. States that the pain is too entire abdomen. She was prescribed medications by GI specialist. She takes on those medications. She was also prescribed antibiotics by her primary care doctor however was told by GI specialist not to take that. She was given Bentyl and prednisone. She has been having persistent diarrhea and is positive that she has C. diff because she's had C. diff before. The ROS documented in this emergency department record has been reviewed and confirmed by me. Those systems with pertinent positive or negative responses have been documented in the HPI. All other systems are other negative and/or noncontributory. - Related Data Home Medications Medication Instructions Recorded Confirmed Amoxic-Pot Clav 875-125Mg 1 tab PO BID 11/30/22 11/30/22 [Augmentin 875-125] Mesalamine [Mesalamine Dr] 800 mg PO DAILY 11/30/22 11/30/22 Previous Rx's Medication Instructions Recorded Nicotine 14Mg/24Hr Patch [Habitrol] 1 patch TRANSDERM DAILY patch 12/03/22 Allergies Allergy/AdvReac Type Severity Reaction Status Date / Time azithromycin Allergy Unknown Verified 02/16/23 20:52 fentanyl citrate Allergy Unknown Verified 02/16/23 20:52 [From Sublimaze (PF)] alprazolam [From Xanax] AdvReac anxiety Verified 02/16/23 20:52 codeine AdvReac anxiety Verified 02/16/23 20:52 Review of Systems ROS Statement: Those systems with pertinent positive or pertinent negative responses have been documented in the HPI. ROS Other: All systems not noted in ROS Statement are negative. Past Medical History Past Medical History: Cancer Additional Past Medical History / Comment(s): Ulceritve colitis, cervical CA History of Any Multi-Drug Resistant Organisms: C-DIFF Date of last positivie culture/infection: 2020 Past Surgical History: No Surgical Hx Reported Additional Past Surgical History / Comment(s): Cervial sx Past Anesthesia/Blood Transfusion Reactions: Previous Problems w/ Anesthesia Additional Past Anesthesia/Blood Transfusion Reaction / Comment(s): Pt states it is difficult for her to get "put under" sometimes. Past Psychological History: No Psychological Hx Reported Smoking Status: Vaper Past Alcohol Use History: None Reported Past Drug Use History: Marijuana General Exam - General Exam Comments Initial Comments: PHYSICAL EXAM: General Impression: Alert and oriented x3, not in acute distress HEENT: Normocephalic atraumatic, extra-ocular movements intact, pupils equal and reactive to light bilaterally, mucous membranes moist. Cardiovascular: Heart regular rate and rhythm Chest: Able to complete full sentences, no retractions, no tachypnea Abdomen: abdomen soft, diffuse palpatory tenderness, non-distended, no organomegaly Musculoskeletal: Pulses present and equal in all extremities, no peripheral edema Motor: no focal deficits noted Neurological: CN II-XII grossly intact, no focal motor or sensory deficits noted Skin: Intact with no visualized rashes Psych: Normal affect and mood Limitations: no limitations Course Vital Signs 02/16/23 02/17/23 20:52 03:50 Temperature 98.3 F 98.2 F Pulse Rate 73 66 Respiratory 18 20 Rate Blood Pressure 138/98 140/92 O2 Sat by Pulse 98 94 L Oximetry Medical Decision Making - Medical Decision Making Was pt. sent in by a medical professional or institution (, [place], HEALTHCARE [facility] MEDICAL, urgent care, hospital, or care home...) When possible be specific @ -No Did you speak to anyone other than the patient for history (EMS, parent, family, police, friend...)? What history was obtained from this source @ -No Did you review nursing and triage notes (agree or disagree)? Why? @ -I reviewed and agree with nursing and triage notes Were old charts reviewed (outside hosp., previous admission, EMS record, old EKG, old radiological studies, urgent care reports/EKG's, care home records)? Report findings @ -No old charts were reviewed Differential Diagnosis (chest pain, altered mental status, abdominal pain women, abdominal pain men, vaginal bleeding, musculoskeletal, weakness, fever, dyspnea, syncope, headache, dizziness, GI bleed, back pain, seizure, CVA, palpatations, mental health)? @ -Differential Abdominal Pain Women: Appendicitis, Cholecystitis, diverticulosis, ischemic bowel, pancreatitis, hepatitis, UTI, gastroenteritis, AAA, incarcerated hernia, bowel obstruction, constipation, inflammatory bowel, hepatitis, peptic ulcer disease, splenic infarction, perforated viscus, vulvitis, ovarian torsion, PID, kidney stone, placenta abruption, this is not meant to be an all-inclusive list EKG interpreted by me (3pts min.). @ -None done X-rays interpreted by me (1pt min.). @ -None done CT interpreted by me (1pt min.). @ -Scan of the abdomen and pelvis with contrast is unremarkable U/S interpreted by me (1pt. min.). @ -None done What testing was considered but not performed or refused? (CT, X-rays, U/S, labs)? Why? @ -None What meds were considered but not given or refused? Why? @ -None Did you discuss the management of the patient with other professionals (professionals i.e. , [place], HEALTHCARE OR MEDICAL, lab, RT, psych nurse, social media designer, chief payroll clerk, teacher, founder chairman and chief creative officer, case resource manager)? Give summary @ -Case discussed with Dr. Pack for hospital admission Was smoking cessation discussed for >3mins.? @ -No Was critical care preformed (if so, how long)? @ -No Were there social determinants of health that impacted care today? How? (Homelessness, low income, unemployed, alcoholism, drug addiction, transportation, low edu. Level, literacy, decrease access to med. care, fpc, rehab)? @ -No Was there de-escalation of care discussed even if they declined (Discuss DNR or withdrawal of care, Hospice)? DNR status @ -No What co-morbidities impacted this encounter? (DM, HTN, Smoking, COPD, CAD, Cancer, CVA, ARF, Chemo, Hep., AIDS, mental health diagnosis, sleep apnea, morb id obesity)? @ -None Was patient admitted / discharged? Hospital course, mention meds given and route, prescriptions, significant lab abnormalities, going to OR and other pertinent info. @ -42-year-old female with alleged history of ulcerative colitis presents to the ER for abdominal pain. Patient's well-appearing. She has stable vital si gns. Labs unremarkable. Computed tomography scan with contrast shows no acute processes in the abdomen or pelvis. Patient told that she is clear for discharge. She states that she still has pain despite looking well and tolerating oral intake. States that she needs to be admitted to the hospital at least for today so she doesn't have to pay ER stay. Discussed with patient that she does not meet any criteria for admission. She became argumentative and requested that I speak with Dr. Conner for admission. Dr. Conner being covered by Dr. Pack is agreeable for admission. Undiagnosed new problem with uncertain prognosis? @ -No Drug Therapy requiring intensive monitoring for toxicity (Heparin, Nitro, Insulin, Cardizem)? @ -No Were any procedures done? @ -No Diagnosis/symptom? Acute, or Chronic, or Acute on Chronic? Uncomplicated (without systemic symptoms) or Complicated (systemic symptoms)? @ -Abdominal pain Side effects of treatment? @ -No Exacerbation, Progression, or Severe Exacerbation? @ -No Poses a threat to life or bodily function? How? (Chest pain, [place], [place], pneumonia, PE, COPD, DKA, ARF, appy, cholecystitis, CVA, Diverticulitis, Homicidal, Suicidal, threat to staff... and all critical care pts) @ -No - Lab Data Result diagrams: 02/16/23 22:47 02/16/23 22:47 Lab Results 02/16/23 02/16/23 Range/Units 22:47 22:47 WBC 12.0 H (3.8-10.6) k/uL RBC 4.77 (3.80-5.40) m/uL Hgb 14.3 (11.4-16.0) gm/dL Hct 44.0 (34.0-46.0) % MCV 92.1 (80.0-100.0) fL MCH 30.0 (25.0-35.0) pg MCHC 32.5 (31.0-37.0) g/dL RDW 13.4 (11.5-15.5) % Plt Count 416 (150-450) k/uL MPV 7.5 Neutrophils % 71 % Lymphocytes % 20 % Monocytes % 7 % Eosinophils % 1 % Basophils % 0 % Neutrophils # 8.5 H (1.3-7.7) k/uL Lymphocytes # 2.4 (1.0-4.8) k/uL Monocytes # 0.9 (0-1.0) k/uL Eosinophils # 0.1 (0-0.7) k/uL Basophils # 0.0 (0-0.2) k/uL Sodium 137 (137-145) mmol/L Potassium 4.0 (3.5-5.1) mmol/L Chloride 103 (98-107) mmol/L Carbon Dioxide 22 (22-30) mmol/L Anion Gap 12 mmol/L BUN 15 (7-17) mg/dL Creatinine 0.72 (0.52-1.04) mg/dL Est GFR (CKD-EPI)AfAm >90 (>60 ml/min/1.73 sqM) Est GFR (CKD-EPI)NonAf >90 (>60 ml/min/1.73 sqM) Glucose 101 H (74-99) mg/dL Calcium 9.9 (8.4-10.2) mg/dL Total Bilirubin 0.4 (0.2-1.3) mg/dL AST 19 (14-36) U/L ALT 15 (4-34) U/L Alkaline Phosphatase 63 (38-126) U/L Total Protein 7.7 (6.3-8.2) g/dL Albumin 4.5 (3.5-5.0) g/dL Lipase 196 (23-300) U/L Disposition Clinical Impression: Abdominal pain Disposition: ADMITTED IP TO THIS [facility] Condition: Fair Referrals: Isaac Conner MD [Primary Care Provider] - 1-2 days Decision Time: 04:34
[2023-02-16 23:24] LABS: Basophils % (A) 0 %; Eosinophils # (A) 0.1 k/uL (0-0.7); Eosinophils % (A) 1 %; HGB 14.3 gm/dL (11.4-16.0); Lymphocytes # (A) 2.4 k/uL (1.0-4.8); Lymphocytes % (A) 20 %; MCHC 32.5 g/dL (31.0-37.0); MCV 92.1 fL (80.0-100.0); Mean Platelet Volume 7.5; Monocytes # (A) 0.9 k/uL (0-1.0); Monocytes % (A) 7 %; Neutrophils # (A) 8.5 k/uL (1.3-7.7); Neutrophils % (A) 71 %; Platelet Count 416 k/uL (150-450); RBC 4.77 m/uL (3.80-5.40); RDW 13.4 % (11.5-15.5)
[2023-02-16 23:32] LABS: ALT 15 U/L (4-34); AST 19 U/L (14-36); African American GFR (CKD) >90 (>60 ml/min/1.73 sqM); Albumin 4.5 g/dL (3.5-5.0); Alkaline Phosphatase 63 U/L (38-126); Anion Gap 12 mmol/L; Blood Urea Nitrogen 15 mg/dL (7-17); Calcium 9.9 mg/dL (8.4-10.2); Carbon Dioxide 22 mmol/L (22-30); Chloride 103 mmol/L (98-107); Glucose 101 mg/dL (74-99); Lipase 196 U/L (23-300); Non-African American GFR(CKD) >90 (>60 ml/min/1.73 sqM); Sodium 137 mmol/L (137-145); Total Bilirubin 0.4 mg/dL (0.2-1.3); Total Protein 7.7 g/dL (6.3-8.2)
[2023-02-17] MEDS ORDERED: MORPHINE SULFATE 4 MG/ML SYRINGE IV STA (00:19)
[2023-02-17] MEDS ORDERED: ONDANSETRON 4 MG/2 ML VIAL IVP STA (00:19)
--- NOTE | 2023-02-17 01:19 | CT ---
EXAM: CT Abdomen and Pelvis With Intravenous Contrast CLINICAL HISTORY: ITS.REASON CT Reason: severe pain, hx of UC TECHNIQUE: Axial computed tomography images of the abdomen and pelvis with intravenous contrast. CTDI is 17.5 mGy and DLP is 661.3 mGy-cm. This CT exam was performed using one or more of the following dose reduction techniques: automated exposure control, adjustment of the mA and/or kV according to patient size, and/or use of iterative reconstruction technique. COMPARISON: 09/07/2020 FINDINGS: Lung bases: Unremarkable. No mass. No consolidation. ABDOMEN: Liver: Unremarkable. No mass. Gallbladder and bile ducts: Unremarkable. No calcified stones. No ductal dilation. Pancreas: Unremarkable. No mass. No ductal dilation. Spleen: Unremarkable. No splenomegaly. Adrenals: Unremarkable. No mass. Kidneys and ureters: Simple bilateral renal cysts measuring up to 1.5 cm in the upper pole of the right kidney. No further workup is required. No hydronephrosis. Stomach and bowel: Unremarkable. No obstruction. No mucosal thickening. PELVIS: Appendix: No findings to suggest acute appendicitis. Bladder: Unremarkable. No mass. Reproductive: Left ovarian cyst measuring up to 4.8 cm. ABDOMEN and PELVIS: Intraperitoneal space: Unremarkable. No free air. No significant fluid collection. Bones/joints: No acute fracture. No dislocation. Soft tissues: Unremarkable. Vasculature: Unremarkable. No abdominal aortic aneurysm. Lymph nodes: Unremarkable. No enlarged lymph nodes. IMPRESSION: No acute findings in the abdomen or pelvis.
[2023-02-17] MEDS ORDERED: NALOXONE 0.4 MG/ML 1 ML VIAL IV PRN (04:31)
[2023-02-17] MEDS ORDERED: HYDROcodone/APAP 5-325MG 1 EACH TAB PO PRN (12:40)
[2023-02-17] MEDS ORDERED: DICYCLOMINE 10 MG CAP PO PRN (12:40)
[2023-02-17] MEDS ORDERED: ONDANSETRON 4 MG/2 ML VIAL IVP PRN (12:41)
[2023-02-17] MEDS ORDERED: MORPHINE SULFATE 4 MG/ML SYRINGE IVP PRN (12:41)
[2023-02-17] MEDS: SODIUM CHLORIDE 0.9% 1,000 ML IV SCH ×3 (13:07→22:53)
[2023-02-17] MEDS: methylPREDNISolone SOD SUCCI 40 MG/ML 1 ML VIAL IV SCH ×2 (16:02→22:53)
[2023-02-17] MEDS: MESALAMINE 400 MG PO SCH ×2 (16:02→21:05)
--- NOTE | 2023-02-17 23:44 | P.HPIM ---
History of Present Illness H&P Date: 02/17/23 Chief Complaint: Abdominal pain 42-year-old female history of ulcerative colitis, patient presented emergency department with 3-4 day history of abdominal pain and discomfort, she has intubated bloody bowel movement for the last few days as well, denies any fever or chills, pain is present in generalized throughout the abdomen, patient sees Dr. Sharp for GI related problems or issues, recently she finished antibiotics in addition she received Ventolin and prednisone without any relief, she does have a history of C. difficile in the past, on specific questioning he denies any nausea vomiting, denies any fever or chills, denies any hematuria has been taking Mesalamine. Postadmission continued on her home medications in addition patient started with steroids, GI services not available, currently she is on the Solu-Medrol 40 every 8 indentation taking morphine Zofran and gently being hydrated she has been started on soft diet which seems to be tolerating well. Her labs are significant for mild leukocytosis with WBC 12,000, rest of CBC fairly within normal limit, BUN 15.7, LFTs within normal limit stool for C. difficile was negative Review of Systems All systems: negative Past Medical History Past Medical History: Cancer Additional Past Medical History / Comment(s): Ulceritve colitis, cervical CA History of Any Multi-Drug Resistant Organisms: C-DIFF Date of last positivie culture/infection: 2020 MDRO Source:: stool Past Surgical History: No Surgical Hx Reported Additional Past Surgical History / Comment(s): Cervial sx Past Anesthesia/Blood Transfusion Reactions: Previous Problems w/ Anesthesia Additional Past Anesthesia/Blood Transfusion Reaction / Comment(s): Pt states it is difficult for her to get "put under" sometimes. Past Psychological History: No Psychological Hx Reported Smoking Status: Former smoker, Vaper Past Alcohol Use History: None Reported Past Drug Use History: Marijuana Medications and Allergies Home Medications Medication Instructions Recorded Confirmed Type Budesonide [Entocort EC] 9 mg PO DAILY 02/17/23 02/17/23 History Dicyclomine [Bentyl] 10 mg PO TID PRN 02/17/23 02/17/23 History Allergies Allergy/AdvReac Type Severity Reaction Status Date / Time azithromycin Allergy Unknown Verified 02/17/23 11:40 fentanyl citrate Allergy Unknown Verified 02/17/23 11:40 [From Sublimaze (PF)] alprazolam [From Xanax] AdvReac anxiety Verified 02/17/23 11:40 codeine AdvReac anxiety Verified 02/17/23 11:40 Physical Exam Vitals: Vital Signs Temp Pulse Pulse Resp BP BP Pulse Ox 02/17/23 21:05 65 16 02/17/23 15:00 97.7 F 65 16 105/67 98 02/17/23 14:00 65 16 02/17/23 07:00 97.9 F 67 14 89/55 99 02/17/23 03:50 98.2 F 66 20 140/92 94 L Intake and Output 02/17/23 02/17/23 02/18/23 14:59 22:59 05:59 Other: Voiding Method Toilet # Voids 2 2 # Bowel Movements 0 0 - Constitutional General appearance: average body habitus, cooperative, disheveled - EENT Eyes: EOMI, PERRLA, normal appearance ENT: normal oropharynx Ears: bilateral: normal - Neck Neck: normal ROM Carotids: bilateral: upstroke normal Thyroid: bilateral: normal size - Respiratory Respiratory: bilateral: CTA - Cardiovascular Rhythm: irregularly irregular Heart sounds: normal: S1, S2 - Gastrointestinal General gastrointestinal: normal bowel sounds, soft - Integumentary Integumentary: normal turgor - Neurologic Neurologic: CNII-XII intact - Musculoskeletal Musculoskeletal: gait normal, generalized weakness, strength equal bilaterally - Psychiatric Psychiatric: A&O x's 3, appropriate affect, intact judgment & insight Results CBC & Chem 7: 02/16/23 22:47 02/16/23 22:47 CT scan - abdomen: report reviewed, image reviewed (No acute changes identified) Thrombosis Risk Factor Assmnt - Choose All That Apply Any of the Below Risk Factors Present?: Yes Each Factor Represents 1 point: Age 41-60 years, Obesity (BMI >25) Other Risk Factors: No Other congenital or acquired thrombophilia - If yes, enter type in comment: No Thrombosis Risk Factor Assessment Total Risk Factor Score: 2 Thrombosis Risk Factor Assessment Level: Low Risk Assessment and Plan Assessment: Exacerbation of ulcerative colitis Leukocytosis History of C. diff Plan: Continue steroids, advanced diet as tolerated, but continued keep it soft, gentle rehydration,
[2023-02-18] MEDS: SODIUM CHLORIDE 0.9% 1,000 ML IV SCH (05:53)
[2023-02-18 07:46] VITALS: BP 90/44; PULSE 68; RESP 14; TEMP 97.7
[2023-02-18] MEDS: methylPREDNISolone SOD SUCCI 40 MG/ML 1 ML VIAL IV SCH (09:21)
[2023-02-18] MEDS: MESALAMINE 400 MG PO SCH (09:22)
--- NOTE | 2023-02-20 16:46 | P.DS ---
Providers Date of admission: 02/17/23 04:31 Expected date of discharge: 02/18/23 Attending physician: Antonio Pack Consults: 02/17/23 12:43 Consult Physician Routine Consulting Provider: Shreya Woods Consult Reason/Comments: uclerative colitis Do you want consulting provider notified?: Yes [facility] Course: 42-year-old female history of ulcerative colitis, patient presented emergency department with 3-4 day history of abdominal pain and discomfort, she has intubated bloody bowel movement for the last few days as well, denies any fever or chills, pain is present in generalized throughout the abdomen, patient sees Dr. Sharp for GI related problems or issues, recently she finished antibiotics in addition she received Ventolin and prednisone without any relief, she does have a history of C. difficile in the past, on specific questioning he denies any nausea vomiting, denies any fever or chills, denies any hematuria has been taking Mesalamine. Postadmission continued on her home medications in addition patient started with steroids, GI services not available, currently she is on the Solu-Medrol 40 every 8 indentation taking morphine Zofran and gently being hydrated she has been started on soft diet which seems to be tolerating well. Her labs are significant for mild leukocytosis with WBC 12,000, rest of CBC fairly within normal limit, BUN 15.7, LFTs within normal limit stool for C. difficile was negative patient was started on Solu-Medrol with significant improvement in symptoms, patient has prednisone at home she would like to continue it and wants to go home Assessment: Exacerbation of ulcerative colitis Leukocytosis History of C. diff Patient Condition at Discharge: Good Plan - Discharge Summary Discharge Rx Participant: No New Discharge Prescriptions: No Action Dicyclomine [Bentyl] 10 mg PO TID PRN PRN Reason: Gi Upset Budesonide [Entocort EC] 9 mg PO DAILY Discharge Medication List Budesonide [Entocort EC] 9 mg PO DAILY 02/17/23 [History] Dicyclomine [Bentyl] 10 mg PO TID PRN 02/17/23 [History] Follow up Appointment(s)/Referral(s): Isaac Conner MD [Primary Care Provider] - 1-2 days (please call for an appointment tomorrow ) Patient Instructions/Handouts: Ulcerative Colitis (DC) Discharge/Stand Alone Forms: Work/School Release / Restrict Discharge Disposition: HOME SELF-CARE
== END 2023-02-18 12:06 | disposition home or self-care (01) ==
LOC: EC 20:40 → 6NMEDSUR 02-17 04:31
PROVIDERS: ADMIT Internal Medicine Sleep Medicine; ATTEND Internal Medicine Sleep Medicine
DX: K51.90 Ulcerative colitis, unspecified, without complications (principal); D72.829 Elevated white blood cell count, unspecified; F17.290 Nicotine dependence, other tobacco product, uncomplicated; Z85.41 Personal history of malignant neoplasm of cervix uteri; Z86.19 Personal history of other infectious and parasitic diseases; Z79.899 Other long term (current) drug therapy; Z88.1 Allergy status to other antibiotic agents; Z88.5 Allergy status to narcotic agent
CPT/HCPCS: 96376 ×2; 96375 ×2; 96374; 99285; 36415; 80053; 83690; 85025; 87324; 74177; G0378 ×2; J2270; J2920 ×2; J2405; Q9967

== ENCOUNTER 2023-03-15 16:04 | Inpatient (IN) | payer BC, OTHER ==
[2023-03-15] MEDS ORDERED: methylPREDNISolone SOD SUCCI 125 MG/2 ML VIAL IV STA (18:29)
[2023-03-15] MEDS ORDERED: MORPHINE SULFATE 4 MG/ML SYRINGE IV STA (18:47)
[2023-03-15] MEDS ORDERED: SODIUM CHLORIDE 0.9% 1,000 ML IV ONE (18:47)
[2023-03-15 19:00] LABS: Basophils % (A) 0 %; Eosinophils # (A) 0.1 k/uL (0-0.7); Eosinophils % (A) 1 %; HCT 42.4 % (34.0-46.0); HGB 14.1 gm/dL (11.4-16.0); Lymphocytes # (A) 2.2 k/uL (1.0-4.8); Lymphocytes % (A) 23 %; MCH 30.6 pg (25.0-35.0); MCHC 33.2 g/dL (31.0-37.0); MCV 92.1 fL (80.0-100.0); Monocytes # (A) 0.5 k/uL (0-1.0); Monocytes % (A) 5 %; Neutrophils # (A) 6.6 k/uL (1.3-7.7); Neutrophils % (A) 70 %; Platelet Count 410 k/uL (150-450); RDW 13.4 % (11.5-15.5); WBC 9.4 k/uL (3.8-10.6)
[2023-03-15 19:17] LABS: Appearance,Urine Cloudy (Clear); Bilirubin,Urine Negative (Negative); Blood,Urine Moderate (Negative); Color,Urine Colorless; Glucose,Urine (UA) Negative (Negative); Ketones,Urine Trace (Negative); Leukocyte Esterase,Urine Negative (Negative); Mucus,Urine Few /hpf; Nitrite,Urine Negative (Negative); Protein,Urine Negative (Negative); RBC,Urine 4 /hpf (0-5); Specific Gravity,Urine 1.012 (1.001-1.035); Squamous Epithelial Cell,Urine 6 /hpf (0-4); Urobilinogen,Urine <2.0 mg/dL (<2.0); WBC,Urine 3 /hpf (0-5)
[2023-03-15 20:34] LABS: AST 28 U/L (14-36); African American GFR (CKD) >90 (>60 ml/min/1.73 sqM); Albumin 4.4 g/dL (3.5-5.0); Alkaline Phosphatase 62 U/L (38-126); Amylase 94 U/L (30-110); Anion Gap 16 mmol/L; Blood Urea Nitrogen 12 mg/dL (7-17); Calcium 9.5 mg/dL (8.4-10.2); Carbon Dioxide 21 mmol/L (22-30); Chloride 102 mmol/L (98-107); Glucose 176 mg/dL (74-99); Lipase 126 U/L (23-300); Non-African American GFR(CKD) >90 (>60 ml/min/1.73 sqM); Potassium 4.4 mmol/L (3.5-5.1); Sodium 139 mmol/L (137-145); Total Bilirubin 0.4 mg/dL (0.2-1.3); Total Protein 7.4 g/dL (6.3-8.2)
[2023-03-15 20:41] LABS: ALT 37 U/L (4-34); C Reactive Protein <0.5 mg/dL (<1.0)
[2023-03-15] MEDS ORDERED: ACETAMINOPHEN TAB 325 MG TAB PO PRN (22:08)
[2023-03-15] MEDS ORDERED: NALOXONE 0.4 MG/ML 1 ML VIAL IV PRN (22:08)
[2023-03-15] MEDS ORDERED: ONDANSETRON 4 MG/2 ML VIAL IVP PRN (22:08)
--- NOTE | 2023-03-15 22:08 | ED ---
Abdominal Pain HPI - General Chief Complaint: Abdominal Pain Stated Complaint: Ulcer colitis Time Seen by Provider: 03/15/23 18:20 Source: patient Mode of arrival: ambulatory Limitations: no limitations - History of Present Illness Initial Comments: This patient is a 42-year-old woman who has history of ulcerative colitis. The patient states she has been having upper abdominal pain that she states is very similar to her previous ulcerative colitis pains. She had been admitted to the hospital here February 17- for a flareup, treated with steroids, and she states that she thinks that episode never fully resolved. She has been having some upper abdominal pains and some diarrhea with occasional blood with the bowel movements. She states that the pains started getting worse again and she spoke with her mechanical fitter Dr. Woods who recommended she go to the hospital to be admitted. Patient states that she had also spoken with her primary physician and have the same advice. She has not noted fever or chills. She's had intermittent nausea no vomiting today. No change in urination. No chest symptoms. MD Complaint: abdominal pain -: days(s) Location: LUQ, RUQ Radiation: none Migration to: no migration Severity: moderate Quality: cramping, aching Consistency: constant Improves With: nothing Worsens With: nothing Associated Symptoms: diarrhea, hematochezia - Related Data Home Medications Medication Instructions Recorded Confirmed Dicyclomine [Bentyl] 10 mg PO TID PRN 02/17/23 03/15/23 Mesalamine [Mesalamine Dr] 800 mg PO TID 03/15/23 03/15/23 Nicotine 14Mg/24Hr Patch [Habitrol] 1 patch TRANSDERM DAILY 03/15/23 03/15/23 Vitamin C/Biotin [Hair, Skin and 1 tab PO DAILY 03/15/23 03/15/23 Nails Chew] predniSONE 10 mg PO BID-W/MEALS 03/15/23 03/15/23 predniSONE 15 mg PO W/BRKFST 03/15/23 03/15/23 Previous Rx's Medication Instructions Recorded predniSONE 0 mg PO DIRECTED #126 tab 03/16/23 Budesonide-Formot 160-4.5 Mcg 2 puff INHALATION RT-BID each 03/20/23 [Symbicort 160-4.5 Mcg Inhaler] Allergies Allergy/AdvReac Type Severity Reaction Status Date / Time azithromycin Allergy Unknown Verified 03/15/23 23:01 fentanyl citrate Allergy Unknown Verified 03/15/23 23:01 [From Sublimaze (PF)] alprazolam [From Xanax] AdvReac anxiety Verified 03/15/23 23:01 codeine AdvReac anxiety Verified 03/15/23 23:01 Review of Systems ROS Statement: Those systems with pertinent positive or pertinent negative responses have been documented in the HPI. ROS Other: All systems not noted in ROS Statement are negative. Constitutional: Denies: fever, chills, weakness Respiratory: Denies: cough, dyspnea Cardiovascular: Denies: chest pain, palpitations Gastrointestinal: Reports: abdominal pain, diarrhea. Denies: nausea, vomiting Genitourinary: Denies: dysuria, frequency, hematuria, abnormal menses Musculoskeletal: Denies: back pain Skin: Denies: rash Neurological: Denies: headache, weakness, numbness Past Medical History Past Medical History: Cancer Additional Past Medical History / Comment(s): Ulceritive colitis, cervical CA History of Any Multi-Drug Resistant Organisms: C-DIFF Date of last positivie culture/infection: 2020 MDRO Source:: stool Past Surgical History: No Surgical Hx Reported Additional Past Surgical History / Comment(s): colposcopy Past Anesthesia/Blood Transfusion Reactions: Previous Problems w/ Anesthesia Additional Past Anesthesia/Blood Transfusion Reaction / Comment(s): Pt states it is difficult for her to get "put under" sometimes. Past Psychological History: No Psychological Hx Reported Smoking Status: Current every day smoker, Vaper Past Alcohol Use History: None Reported Past Drug Use History: Marijuana - Past Family History Mother Family Medical History: Cancer Additional Family Medical History / Comment(s): Throat Father Additional Family Medical History / Comment(s): Blood Disorder unknown General Exam Limitations: no limitations General appearance: alert, in no apparent distress Head exam: Present: atraumatic, normocephalic Eye exam: Present: normal appearance. Absent: scleral icterus, conjunctival injection Neck exam: Present: normal inspection Respiratory exam: Present: normal lung sounds bilaterally. Absent: respiratory distress, wheezes, rales, rhonchi, stridor Cardiovascular Exam: Present: regular rate, normal rhythm, normal heart sounds. Absent: systolic murmur, diastolic murmur, rubs, gallop GI/Abdominal exam: Present: soft, tenderness, diminished bowel sounds. Absent: distended, guarding, rebound, rigid, mass, pulsatile mass, hernia Extremities exam: Present: normal inspection, normal capillary refill. Absent: pedal edema, calf tenderness Back exam: Present: normal inspection. Absent: CVA tenderness (R), CVA tenderness (L) Neurological exam: Present: alert Skin exam: Present: warm, dry, intact, normal color. Absent: rash Course Vital Signs 03/15/23 03/15/23 03/15/23 16:42 19:12 22:49 Temperature 98.8 F 98.2 F 98.2 F Pulse Rate 61 73 60 Pulse Rate [ Pulse Oximetery ] Respiratory 16 18 18 Rate Blood Pressure 149/70 122/72 134/83 Blood Pressure [Left Arm] O2 Sat by Pulse 98 97 97 Oximetry 03/16/23 03/16/23 03/16/23 02:00 02:12 03:00 Temperature 97.8 F Pulse Rate Pulse Rate [ 60 Pulse Oximetery ] Respiratory 18 18 Rate Blood Pressure 122/77 Blood Pressure 122/77 [Left Arm] O2 Sat by Pulse 98 98 99 Oximetry 03/16/23 03/16/23 03/16/23 04:00 05:00 06:00 Temperature Pulse Rate Pulse Rate [ Pulse Oximetery ] Respiratory 18 18 18 Rate Blood Pressure 124/72 118/68 124/74 Blood Pressure [Left Arm] O2 Sat by Pulse 98 97 98 Oximetry 03/16/23 03/16/23 03/16/23 07:00 08:00 12:00 Temperature 98 F 98 F Pulse Rate 52 L 51 L 59 L Pulse Rate [ Pulse Oximetery ] Respiratory 18 18 18 Rate Blood Pressure 131/99 133/97 117/74 Blood Pressure [Left Arm] O2 Sat by Pulse 99 99 98 Oximetry 03/16/23 13:00 Temperature 97.9 F Pulse Rate 65 Pulse Rate [ Pulse Oximetery ] Respiratory 18 Rate Blood Pressure 126/76 Blood Pressure [Left Arm] O2 Sat by Pulse 99 Oximetry Medical Decision Making - Medical Decision Making Case discussed with patient's physician who will admit with consultation to her mechanical fitter. Was pt. sent in by a medical professional or institution (, PA, SOLAR PROCESS ENGINEER, urgent care, hospital, or usp...) When possible be specific @ -Patient states she was directed here by her primary physician Did you speak to anyone other than the patient for history (EMS, parent, family, police, friend...)? What history was obtained from this source @ -[No] Did you review nursing and triage notes (agree or disagree)? Why? @ -[I reviewed and agree with nursing and triage notes] Were old charts reviewed (outside hosp., previous admission, EMS record, old EKG, old radiological studies, urgent care reports/EKG's, usp records)? Report findings @ -[No old charts were reviewed] Differential Diagnosis (chest pain, altered mental status, abdominal pain women, abdominal pain men, vaginal bleeding, weakness, fever, dyspnea, syncope, headache, dizziness, GI bleed, back pain, seizure, CVA, palpatations, mental health, musculoskeletal)? @ -[Differential Abdominal Pain Women: Appendicitis, Cholecystitis, diverticulosis, ischemic bowel, pancreatitis, hepat itis, UTI, gastroenteritis, AAA, incarcerated hernia, bowel obstruction, constipation, inflammatory bowel, hepatitis, peptic ulcer disease, splenic infarction, perforated viscus, vulvitis, ovarian torsion, PID, kidney stone, placenta abruption, this is not meant to be an all-inclusive list EKG interpreted by me (3pts min.). @ -[ X-rays interpreted by me (1pt min.). @ -[None done] CT interpreted by me (1pt min.). @ -[None done] U/S interpreted by me (1pt. min.). @ -[None done] What testing was considered but not performed or refused? (CT, X-rays, U/S, labs)? Why? @ -[Computed tomography scan of the abdomen pelvis was considered however the patient had computed tomography scan less than one month ago and in the interest of limiting lifetime radiation exposure will at this point hold What meds were considered but not given or refused? Why? @ -[None] Did you discuss the management of the patient with other professionals (professionals i.e. , PA, SOLAR PROCESS ENGINEER, lab, RT, psych nurse, public health social worker, repairer art objects, teacher, air defense control officer, shoe caser)? Give summary @ -[No] Was smoking cessation discussed for >3mins.? @ -[No] Was critical care preformed (if so, how long)? @ -[No] Were there social determinants of health that impacted care today? How? (Homelessness, low income, unemployed, alcoholism, drug addiction, transportation, low edu. Level, literacy, decrease access to med. care, correction, rehab)? @ -[No] Was there de-escalation of care discussed even if they declined (Discuss DNR or withdrawal of care, Hospice)? DNR status @ -[No] What co-morbidities impacted this encounter? (DM, HTN, Smoking, COPD, CAD, Cancer, CVA, ARF, Chemo, Hep., AIDS, mental health diagnosis, sleep apnea, morbid obesity)? @ -[Ulcerated colitis Was patient admitted / discharged? Hospital course, mention meds given and route, prescriptions, significant lab abnormalities, going to OR and other pertinent info. @ -[As above, case discussed with admitting physician and treatment recommendations are incorporated Undiagnosed new problem with uncertain prognosis? @ -[No] Drug Therapy requiring intensive monitoring for toxicity (Heparin, Nitro, Insulin, Cardizem)? @ -[No] Were any procedures done? @ -[No] Diagnosis/symptom? @ -[Acute exacerbation of ulcerative colitis Acute, or Chronic, or Acute on Chronic? @ -[Acute on chronic Uncomplicated (without systemic symptoms) or Complicated (systemic symptoms)? @ -[Uncomplicated Side effects of treatment? @ -[No] Exacerbation, Progression, or Severe Exacerbation? @ -[No] Poses a threat to life or bodily function? How? (Chest pain, [place], [place], pneumonia, PE, COPD, DKA, ARF, appy, cholecystitis, CVA, Diverticulitis, Homicidal, Suicidal, threat to staff... and all critical care pts) @ -[No] - Lab Data Result diagrams: 03/20/23 06:06 03/18/23 16:30 Lab Results 03/15/23 03/15/23 03/15/23 Range/Units 18:44 18:44 18:44 WBC 9.4 (3.8-10.6) k/uL RBC 4.60 (3.80-5.40) m/uL Hgb 14.1 (11.4-16.0) gm/dL Hct 42.4 (34.0-46.0) % MCV 92.1 (80.0-100.0) fL MCH 30.6 (25.0-35.0) pg MCHC 33.2 (31.0-37.0) g/dL RDW 13.4 (11.5-15.5) % Plt Count 410 (150-450) k/uL MPV 7.0 Neutrophils % 70 % Lymphocytes % 23 % Monocytes % 5 % Eosinophils % 1 % Basophils % 0 % Neutrophils # 6.6 (1.3-7.7) k/uL Lymphocytes # 2.2 (1.0-4.8) k/uL Monocytes # 0.5 (0-1.0) k/uL Eosinophils # 0.1 (0-0.7) k/uL Basophils # 0.0 (0-0.2) k/uL Sodium (137-145) mmol/L Potassium (3.5-5.1) mmol/L Chloride (98-107) mmol/L Carbon Dioxide (22-30) mmol/L Anion Gap mmol/L BUN (7-17) mg/dL Creatinine (0.52-1.04) mg/dL Est GFR (CKD-EPI)AfAm (>60 ml/min/1.73 sqM) Est GFR (CKD-EPI)NonAf (>60 ml/min/1.73 sqM) Glucose (74-99) mg/dL Lactic Ac Sepsis Rflx Plasma Lactic Acid Kel[place] (0.7-2.0) mmol/L Calcium (8.4-10.2) mg/dL Total Bilirubin (0.2-1.3) mg/dL AST (14-36) U/L ALT (4-34) U/L Alkaline Phosphatase (38-126) U/L C-Reactive Protein (<1.0) mg/dL Total Protein (6.3-8.2) g/dL Albumin (3.5-5.0) g/dL Amylase (30-110) U/L Lipase (23-300) U/L Urine Color Colorless Urine Appearance Cloudy H (Clear) Urine pH 5.0 (5.0-8.0) Ur Specific [place] 1.012 (1.001-1.035) Urine Protein Negative (Negative) Urine Glucose (UA) Negative (Negative) Urine Ketones Trace H (Negative) Urine Blood Moderate H (Negative) Urine Nitrite Negative (Negative) Urine Bilirubin Negative (Negative) Urine Urobilinogen <2.0 (<2.0) mg/dL Ur Leukocyte Esterase Negative (Negative) Urine RBC 4 (0-5) /hpf Urine WBC 3 (0-5) /hpf Ur Squamous Epith Cells 6 H (0-4) /hpf Urine Mucus Few H (None) /hpf Urine HCG, Qual Not Detected (Not Detectd) 03/15/23 03/15/23 03/15/23 Range/Units 18:44 18:44 19:27 WBC (3.8-10.6) k/uL RBC (3.80-5.40) m/uL Hgb (11.4-16.0) gm/dL Hct (34.0-46.0) % MCV (80.0-100.0) fL MCH (25.0-35.0) pg MCHC (31.0-37.0) g/dL RDW (11.5-15.5) % Plt Count (150-450) k/uL MPV Neutrophils % % Lymphocytes % % Monocytes % % Eosinophils % % Basophils % % Neutrophils # (1.3-7.7) k/uL Lymphocytes # (1.0-4.8) k/uL Monocytes # (0-1.0) k/uL Eosinophils # (0-0.7) k/uL Basophils # (0-0.2) k/uL Sodium 139 (137-145) mmol/L Potassium 4.4 (3.5-5.1) mmol/L Chloride 102 (98-107) mmol/L Carbon Dioxide 21 L (22-30) mmol/L Anion Gap 16 mmol/L BUN 12 (7-17) mg/dL Creatinine 0.73 (0.52-1.04) mg/dL Est GFR (CKD-EPI)AfAm >90 (>60 ml/min/1.73 sqM) Est GFR (CKD-EPI)NonAf >90 (>60 ml/min/1.73 sqM) Glucose 176 H (74-99) mg/dL Lactic Ac Sepsis Rflx Y Plasma Lactic Acid Kelton 3.8 H* (0.7-2.0) mmol/L Calcium 9.5 (8.4-10.2) mg/dL Total Bilirubin 0.4 (0.2-1.3) mg/dL AST 28 (14-36) U/L ALT 37 H (4-34) U/L Alkaline Phosphatase 62 (38-126) U/L C-Reactive Protein <0.5 (<1.0) mg/dL Total Protein 7.4 (6.3-8.2) g/dL Albumin 4.4 (3.5-5.0) g/dL Amylase 94 (30-110) U/L Lipase 126 (23-300) U/L Urine Color Urine Appearance (Clear) Urine pH (5.0-8.0) Ur Specific [place] (1.001-1.035) Urine Protein (Negative) Urine Glucose (UA) (Negative) Urine Ketones (Negative) Urine Blood (Negative) Urine Nitrite (Negative) Urine Bilirubin (Negative) Urine Urobilinogen (<2.0) mg/dL Ur Leukocyte Esterase (Negative) Urine RBC (0-5) /hpf Urine WBC (0-5) /hpf Ur Squamous Epith Cells (0-4) /hpf Urine Mucus (None) /hpf Urine HCG, Qual (Not Detectd) 03/15/23 Range/Units 22:01 WBC (3.8-10.6) k/uL RBC (3.80-5.40) m/uL Hgb (11.4-16.0) gm/dL Hct (34.0-46.0) % MCV (80.0-100.0) fL MCH (25.0-35.0) pg MCHC (31.0-37.0) g/dL RDW (11.5-15.5) % Plt Count (150-450) k/uL MPV Neutrophils % % Lymphocytes % % Monocytes % % Eosinophils % % Basophils % % Neutrophils # (1.3-7.7) k/uL Lymphocytes # (1.0-4.8) k/uL Monocytes # (0-1.0) k/uL Eosinophils # (0-0.7) k/uL Basophils # (0-0.2) k/uL Sodium (137-145) mmol/L Potassium (3.5-5.1) mmol/L Chloride (98-107) mmol/L Carbon Dioxide (22-30) mmol/L Anion Gap mmol/L BUN (7-17) mg/dL Creatinine (0.52-1.04) mg/dL Est GFR (CKD-EPI)AfAm (>60 ml/min/1.73 sqM) Est GFR (CKD-EPI)NonAf (>60 ml/min/1.73 sqM) Glucose (74-99) mg/dL Lactic Ac Sepsis Rflx Plasma Lactic Acid [place] 0.7 (0.7-2.0) mmol/L Calcium (8.4-10.2) mg/dL Total Bilirubin (0.2-1.3) mg/dL AST (14-36) U/L ALT (4-34) U/L Alkaline Phosphatase (38-126) U/L C-Reactive Protein (<1.0) mg/dL Total Protein (6.3-8.2) g/dL Albumin (3.5-5.0) g/dL Amylase (30-110) U/L Lipase (23-300) U/L Urine Color Urine Appearance (Clear) Urine pH (5.0-8.0) Ur Specific [place] (1.001-1.035) Urine Protein (Negative) Urine Glucose (UA) (Negative) Urine Ketones (Negative) Urine Blood (Negative) Urine Nitrite (Negative) Urine Bilirubin (Negative) Urine Urobilinogen (<2.0) mg/dL Ur Leukocyte Esterase (Negative) Urine RBC (0-5) /hpf Urine WBC (0-5) /hpf Ur Squamous Epith Cells (0-4) /hpf Urine Mucus (None) /hpf Urine HCG, Qual (Not Detectd) Disposition Clinical Impression: Abdominal pain, History of ulcerative colitis, Lactic acidosis Disposition: ADMITTED IP TO THIS HOSP Condition: Fair Is patient prescribed a controlled substance at d/c from ED?: No
[2023-03-15] MEDS: SODIUM CHLORIDE 0.9% 1,000 ML IV SCH (22:14)
[2023-03-16] MEDS: MORPHINE SULFATE 4 MG/ML SYRINGE IV PRN ×3 (01:18→21:01)
[2023-03-16] MEDS: SODIUM CHLORIDE 0.9% 1,000 ML IV SCH ×3 (06:36→23:06)
[2023-03-16] MEDS: methylPREDNISolone SOD SUCCI 40 MG/ML 1 ML VIAL IV SCH ×2 (08:20→16:26)
[2023-03-16] MEDS: FAMOTIDINE 20 MG TAB PO SCH ×2 (08:21→20:57)
--- NOTE | 2023-03-16 13:27 | P.CONS ---
History of Present Illness - Reason for Consult Consult date: 03/16/23 Ulcerative colitis Requesting physician: Isaac Conner - Chief Complaint Abdominal pain - History of Present Illness Pleasant 42-year-old female diagnosed with ulcerative colitis in 2018 by colonoscopy. She follows with Dr. Woods. She currently is on Asacol 800 mg 3 times a day however states that sometimes she will only take a couple pills a day if she is not feeling bad. She was admitted to the hospital from 07/16/2010 723 for acute flareup of ulcerative colitis. States at that time she had abdominal pain was having 4-5 bloody stools a day. She was given IV steroids at that time and sent home on a short prednisone taper dose. She was tested for C. diff on 02/16/2023 and it was negative. States that abdominal pain started pretty bad yesterday, she had 3-4 loose bowel movements with blood clots. No blood in her stool today. She states her last flareup prior to this last admission was like 4 years ago. She denies any fevers or chills. No nausea or vomiting. She had a CT of the abdomen and pelvis on 02/17/2023 with no acute findings. Admitting labs WBC 9.4 hemoglobin 14 hematocrit 42 platelet count 410,000 sodium 139 potassium 4.4 BUN 12 creatinine 0.7 lactic acid 3.8, total bilirubin 0.4 AST 20 ALT 37 alkaline phosphatase 62 C-reactive protein less than 0.5 amylase 94 lipase 126 Review of Systems REVIEW OF SYSTEMS: CARDIOPULMONARY: No chest pain or shortness of breath. Gastrointestinal: Abdominal pain mostly in the left mid and lower quadrant. No nausea or vomiting. No hematemesis, coffee-ground emesis. Diarrhea 4-5 per day of bloody with clots. GENITOURINARY: No dysuria or hematuria. MUSCULOSKELETAL: Reports normal range of motion. SKIN: No rashes. No jaundice. ENDOCRINE: No chills, fevers. No excessive weight gain or loss. No polydipsia or polyuria. PSYCHIATRIC: Unremarkable. NEUROLOGY: No change in mental status. Denies dizziness, headache. ENT: Vision unremarkable. CONSTITUTIONAL: No recent weight loss. No fever, chills, night sweats. Past Medical History Past Medical History: Cancer Additional Past Medical History / Comment(s): Ulceritive colitis, cervical CA History of Any Multi-Drug Resistant Organisms: C-DIFF Year Discovered:: 2020 MDRO Source:: stool Past Surgical History: No Surgical Hx Reported Additional Past Surgical History / Comment(s): colposcopy Past Anesthesia/Blood Transfusion Reactions: Previous Problems w/ Anesthesia Additional Past Anesthesia/Blood Transfusion Reaction / Comm: Pt states it is difficult for her to get "put under" sometimes. Past Psychological History: No Psychological Hx Reported Smoking Status: Current every day smoker, Vaper Past Alcohol Use History: None Reported Past Drug Use History: Marijuana Medications and Allergies Home Medications Medication Instructions Recorded Confirmed Type Dicyclomine [Bentyl] 10 mg PO TID PRN 02/17/23 03/15/23 History Mesalamine [Mesalamine Dr] 800 mg PO TID 03/15/23 03/15/23 History Nicotine 14Mg/24Hr Patch [Habitrol 1 patch TRANSDERM DAILY 03/15/23 03/15/23 History 14Mg/24Hr Patch] Vitamin C/Biotin [Hair, Skin and 1 tab PO DAILY 03/15/23 03/15/23 History Nails Chew] predniSONE 10 mg PO BID-W/MEALS 03/15/23 03/15/23 History predniSONE 15 mg PO W/BRKFST 03/15/23 03/15/23 History predniSONE 0 mg PO DIRECTED #126 tab 03/16/23 Rx Allergies Allergy/AdvReac Type Severity Reaction Status Date / Time azithromycin Allergy Unknown Verified 03/15/23 23:01 fentanyl citrate Allergy Unknown Verified 03/15/23 23:01 [From Sublimaze (PF)] alprazolam [From Xanax] AdvReac anxiety Verified 03/15/23 23:01 codeine AdvReac anxiety Verified 03/15/23 23:01 Physical Exam Vitals: Vital Signs Temp Pulse Pulse Resp BP BP Pulse Ox 03/16/23 06:00 18 124/74 98 03/16/23 05:00 18 118/68 97 03/16/23 04:00 18 124/72 98 03/16/23 03:00 18 122/77 99 03/16/23 02:12 98 03/16/23 02:00 97.8 F 60 18 122/77 98 03/15/23 22:49 98.2 F 60 18 134/83 97 03/15/23 19:12 98.2 F 73 18 122/72 97 03/15/23 16:42 98.8 F 61 16 149/70 98 Intake and Output 03/15/23 03/15/23 03/16/23 14:59 22:59 06:59 Other: Weight 85.275 kg General appearance: The patient is alert, oriented, appears in no acute distress. HET: Head is normocephalic and atraumatic. Conjunctiva pink. Sclera anicteric. Neck: Supple without lymphadenopathy. Trachea midline. Heart: Regular. Lungs: Equal expansion, normal respiratory effort. Abdomen: Soft, non-left mid and lower quadrant tenderness with palpation, nondistended with bowel sounds. No guarding or rigidity. Skin: No rashes. No jaundice. Extremities: Normal skin color and turgor. No pedal edema. Neurological: No focal deficits. Alert and oriented x3. Results CBC & Chem 7: 03/15/23 18:44 03/15/23 18:44 Labs: Abnormal Lab Results - Last 24 Hours (Table) 03/15/23 03/15/23 03/15/23 Range/Units 18:44 18:44 18:44 Carbon Dioxide 21 L (22-30) mmol/L Glucose 176 H (74-99) mg/dL Plasma Lactic Acid [place] 3.8 H* (0.7-2.0) mmol/L ALT 37 H (4-34) U/L Urine Appearance Cloudy H (Clear) Urine Ketones Trace H (Negative) Urine Blood Moderate H (Negative) Ur Squamous Epith Cells 6 H (0-4) /hpf Urine Mucus Few H (None) /hpf Assessment and Plan (1) Ulcerative colitis Narrative/Plan: 32-year-old female with known ulcerative colitis maintained on Desacol it 100 mg 3 times a day was recently hospitalized for acute flareup of her ulcerative colitis. She was sent home only on a short steroid Dosepak and finished about a week ago. She returns with abdominal pain and bloody diarrhea. Hemoglobin stable. She is afebrile and no leukocytosis. Last stool for C. diff was negative on 02/16/2023. Likely recurrence due to short course of steroids. Will start IV Solu-Medrol 20 mg every 8 hours and transposition in 1-2 days to 40 mg by mouth daily with a taper of 5 mg weekly. This was discussed with the patient and prescription sent. No further workup by gastroenterology. Current Visit: Yes Status: Acute Code(s): K51.90 - ULCERATIVE COLITIS, UNSPECIFIED, WITHOUT COMPLICATIONS SNOMED Code(s): 48435520 (2) Abdominal pain Current Visit: Yes Status: Acute Code(s): R10.9 - UNSPECIFIED ABDOMINAL PAIN SNOMED Code(s): 59487159 Plan: 1. Continue symptomatic and supportive care 2. Full liquid diet 3. IV Solu-Medrol 20 mg every 8 hours 4. Can transition to oral prednisone 40 mg daily tomorrow, taper by 5 mg weekly 5. Prednisone 40 mg taper dose sent to patient's pharmacy 6. Continue Desacol 7. Follow up with Dr. Woods in 2-3 weeks Thank you for this consultation, anticipate discharge in the next 24-48 hours. Gastroenterology will sign off at this time if there will be no coverage through the weekend. Dr. Jean Pierre Woods I agree with the dictator's note, documented as a scribe by Queenie Barger.
[2023-03-16] MEDS ORDERED: DICYCLOMINE 10 MG CAP PO PRN (14:01)
[2023-03-16] MEDS ORDERED: BALSALAZIDE DISODIUM 750 MG CAPSULE PO SCH (16:00)
[2023-03-16] MEDS: MESALAMINE 400 MG PO SCH ×2 (16:26→20:57)
[2023-03-17] MEDS: methylPREDNISolone SOD SUCCI 40 MG/ML 1 ML VIAL IV SCH ×3 (01:11→16:42)
[2023-03-17] MEDS: MORPHINE SULFATE 4 MG/ML SYRINGE IV PRN ×2 (01:17→20:24)
--- NOTE | 2023-03-17 03:41 | PN ---
PROGRESS NOTE SUBJECTIVE: This is a 42-year-old white female with progressive abdominal pain, admitted for colitis with IV antibiotics, Solu-Medrol IV 8 hours for which medication is being given. GI consult pending. She is up ambulating. OBJECTIVE: VITAL SIGNS: Stable, afebrile. CARDIOVASCULAR: S1, S2. LUNGS: Transmitted upper sounds. GI: Soft, increased bowel sounds x4. HEMATOLOGY: Negative for Homans. ASSESSMENT: Acute colitis, ulcerative colitis flare, asthma, COPD, nicotine addiction, risk factor modifications being given. PT, OT after steroids are done MMODL / IJN: [id number] /
[2023-03-17] MEDS: SODIUM CHLORIDE 0.9% 1,000 ML IV SCH ×2 (06:56→16:38)
[2023-03-17] MEDS: NICOTINE 14MG/24HR PATCH TRANSDERM SCH (08:09)
[2023-03-17] MEDS: FAMOTIDINE 20 MG TAB PO SCH ×2 (08:10→20:23)
[2023-03-17] MEDS: MULTIVITAMINS, THERA 1 EACH TAB PO SCH (08:10)
[2023-03-17] MEDS: MESALAMINE 400 MG PO SCH ×3 (08:17→20:24)
--- NOTE | 2023-03-17 08:41 | HP ---
HISTORY AND PHYSICAL HISTORY OF PRESENT ILLNESS: 42-year-old white female came in with increased abdominal pain, history of ulcerative colitis. She was recently admitted to the hospital, but sent home with insufficient steroid taper. The episode was never fully resolved. She came in with upper abdominal pain with diarrhea. Pains are getting worse. Dr. Woods advised her to come to the hospital. Cramping, aching, constant pain, improves with nothing. MEDICATIONS: Home medicines: 1. Bentyl. 2. Mesalamine. 3. Nicotine patch. 4. Prednisone. ALLERGIES: To azithromycin, fentanyl, , codeine. REVIEW OF SYSTEMS: 14-point review of systems is otherwise negative. PAST MEDICAL HISTORY: Cervical cancer, ulcerative colitis, history of C diff, history of smoking for many years. She has had a colposcopy. SOCIAL HISTORY: Current everyday smoker. PHYSICAL EXAMINATION: GENERAL: She is an obese white female. She is up ambulating. HEAD: Normocephalic, atraumatic. CARDIOVASCULAR: S1, S2. LUNGS: Clear. GI: Increased bowel sounds x4. HEMATOLOGY: Negative for Homans. SKIN AND INTEGUMENT: Within normal limits. NEUROLOGIC: Alert and oriented x3. PSYCH: Fair mood and affect. VITAL SIGNS: Blood pressure 149/70, temperature 98.8, pulse 61, respiratory rate 18. LABORATORY DATA: UA is negative. Sugar is 176. Lactic acid 3.8. ASSESSMENT: 1. Lactic acidosis. 2. Ulcerative colitis flare. 3. Dehydration. 4. Nicotine addiction. 5. History of asthma. PLAN: Continue home medicines. Rehydrate. Treat with IV steroids for [address] Woods, the GI doctor's recommendations. MMODL / IJN: [id number] /
[2023-03-18] MEDS: methylPREDNISolone SOD SUCCI 40 MG/ML 1 ML VIAL IV SCH ×3 (00:27→17:55)
[2023-03-18] MEDS: SODIUM CHLORIDE 0.9% 1,000 ML IV SCH ×4 (00:27→21:25)
[2023-03-18] MEDS: MORPHINE SULFATE 4 MG/ML SYRINGE IV PRN ×3 (00:33→21:33)
--- NOTE | 2023-03-18 01:10 | PN ---
PROGRESS NOTE SUBJECTIVE: 42-year-old white female was admitted with ulcerative colitis flare. She is still on IV Solu-Medrol for another day. Possibly go home tomorrow on prednisone taper. She is at least 50% better. She is waiting for blood to stop coming out of the rectum and her stools prior to going home. She is up, ambulating. OBJECTIVE: CARDIOVASCULAR: S1 and S2. LUNGS: Transmitted upper sounds. HEMATOLOGY: Negative for Homans. PSYCHIATRIC: Fair mood and affect. VITAL SIGNS: Temp 98.2, pulse 47 to 60, respiratory rate 16 to 18, blood pressure 113/70, O2 saturation 97% on room air. GI: Soft, nontender, increased bowel sounds. PLAN: IV Solu-Medrol for 24 hours for ulcerative colitis and possible discharge home tomorrow. Check CBC in the morning. MMODL / IJN: [id number] /
[2023-03-18] MEDS: MULTIVITAMINS, THERA 1 EACH TAB PO SCH (08:49)
[2023-03-18] MEDS: NICOTINE 14MG/24HR PATCH TRANSDERM SCH (08:49)
[2023-03-18] MEDS: MESALAMINE 400 MG PO SCH ×3 (08:49→21:27)
[2023-03-18] MEDS: FAMOTIDINE 20 MG TAB PO SCH ×2 (08:49→21:27)
[2023-03-18 09:44] LABS: Basophils # (A) 0.03 X 10*3/uL (0.00-0.10); Basophils % (A) 0.3 %; Eosinophils # (A) 0 X 10*3/uL (0.04-0.35); Eosinophils % (A) 0 %; HCT 40.7 % (37.2-46.3); Lymphocytes # (A) 2.45 X 10*3/uL (0.90-5.00); Lymphocytes % (A) 21.6 %; MCH 29.7 pg (27.0-32.0); MCHC 31.9 g/dL (32.0-37.0); MCV 93.1 FL (80.0-97.0); Mean Platelet Volume 9.3 FL (9.5-12.2); Monocytes # (A) 0.66 X 10*3/uL (0.20-1.00); Monocytes % (A) 5.8 %; NRBC Per 100 WBC 0 X 10*3/uL (0.00-0.01); Neutrophils # (A) 7.95 X 10*3/uL (1.80-7.70); Neutrophils % (A) 70.3 %; Platelet Count 469 X 10*3/uL (140-440); RBC 4.37 X 10*6/uL (4.10-5.20); RDW 13.9 % (11.5-14.5); WBC 11.32 X 10*3/uL (4.50-10.00)
[2023-03-18 09:54] LABS: ALT 15 U/L (8-44); AST 10 U/L (13-35); Albumin 3.8 g/dL (3.8-4.9); Albumin/Globulin Ratio 1.65 Ratio (1.60-3.17); Alkaline Phosphatase 56 U/L (41-126); BUN/Creat Ratio 15.38 Ratio (12.00-20.00); Blood Urea Nitrogen 12.3 mg/dL (9.0-27.0); Calcium 9.3 mg/dL (8.7-10.3); Carbon Dioxide 25.9 mmol/L (21.6-31.8); Chloride 104 mmol/L (96-109); Globulin 2.3 g/dL (1.6-3.3); Glucose 154 mg/dL (70-110); Potassium 5.2 mmol/L (3.5-5.5); Sodium 138 mmol/L (135-145); Total Bilirubin <0.2 mg/dL (0.3-1.2); Total Protein 6.1 g/dL (6.2-8.2)
[2023-03-18] MEDS ORDERED: methylPREDNISolone SOD SUCCI 40 MG/ML 1 ML VIAL IV STA (12:40)
[2023-03-18] MEDS ORDERED: DICYCLOMINE 20 MG TAB PO PRN (12:48)
[2023-03-18] MEDS: clonazePAM 1 MG TAB PO PRN (13:14)
--- NOTE | 2023-03-18 14:25 | P.GSCN ---
History of Present Illness Consult date: 03/18/23 History of present illness: Patient has pre-existing ulcerative colitis with recurrent bleeding. She sees Dr Woods. She reports events started in November after tooth abscess and antibiotics. She reports short course steroid treatment with recurrent bleeding. She was on s teroid 20 mg and was about to be discharged today, but now has bleeding. Currently no GI coverage. Surgery consulted for GI bleed due to ulcerative colitis. She is now on 40 mg steroids. She reports some improvement in the last 24 hrs. Past Medical History Past Medical History: Cancer Additional Past Medical History / Comment(s): Ulcerative colitis, cervical CA History of Any Multi-Drug Resistant Organisms: C-DIFF Year Discovered:: 2020 MDRO Source:: stool Past Surgical History: No Surgical Hx Reported Additional Past Surgical History / Comment(s): colonscopy Past Anesthesia/Blood Transfusion Reactions: Previous Problems w/ Anesthesia Additional Past Anesthesia/Blood Transfusion Reaction / Comm: Pt states it is difficult for her to get "put under" sometimes. Past Psychological History: No Psychological Hx Reported Smoking Status: Current every day smoker, Vaper Past Alcohol Use History: None Reported Past Drug Use History: Marijuana - Past Family History Mother Family Medical History: Cancer Additional Family Medical History / Comment(s): Throat Father Additional Family Medical History / Comment(s): Blood Disorder unknown Medications and Allergies Home Medications Medication Instructions Recorded Confirmed Type Dicyclomine [Bentyl] 10 mg PO TID PRN 02/17/23 03/15/23 History Mesalamine [Mesalamine Dr] 800 mg PO TID 03/15/23 03/15/23 History Nicotine 14Mg/24Hr Patch [Habitrol 1 patch TRANSDERM DAILY 03/15/23 03/15/23 History 14Mg/24Hr Patch] Vitamin C/Biotin [Hair, Skin and 1 tab PO DAILY 03/15/23 03/15/23 History Nails Chew] predniSONE 10 mg PO BID-W/MEALS 03/15/23 03/15/23 History predniSONE 15 mg PO W/BRKFST 03/15/23 03/15/23 History predniSONE 0 mg PO DIRECTED #126 tab 03/16/23 Rx Allergies Allergy/AdvReac Type Severity Reaction Status Date / Time azithromycin Allergy Unknown Verified 03/15/23 23:01 fentanyl citrate Allergy Unknown Verified 03/15/23 23:01 [From Sublimaze (PF)] alprazolam [From Xanax] AdvReac anxiety Verified 03/15/23 23:01 codeine AdvReac anxiety Verified 03/15/23 23:01 Surgical - Exam Vital Signs Temp Pulse Resp BP Pulse Ox 98.8 F 61 16 149/70 98 03/15/23 16:42 03/15/23 16:42 03/15/23 16:42 03/15/23 16:42 03/15/23 16:42 Results - Labs 03/18/23 06:30 03/18/23 06:30 Abnormal Lab Results - Last 24 Hours (Table) 03/18/23 03/18/23 Range/Units 06:30 06:30 WBC 11.32 H (4.50-10.00) X 10*3/uL MCHC 31.9 L (32.0-37.0) g/dL Plt Count 469 H (140-440) X 10*3/uL MPV 9.3 L (9.5-12.2) FL Neutrophils # 7.95 H (1.80-7.70) X 10*3/uL Eosinophils # 0 L (0.04-0.35) X 10*3/uL Glucose 154 H (70-110) mg/dL Total Bilirubin <0.2 L (0.3-1.2) mg/dL AST 10 L (13-35) U/L Total Protein 6.1 L (6.2-8.2) g/dL Diabetes panel 03/18/23 Range/Units 06:30 Sodium 138 (135-145) mmol/L Potassium 5.2 (3.5-5.5) mmol/L Chloride 104 (96-109) mmol/L Carbon Dioxide 25.9 (21.6-31.8) mmol/L BUN 12.3 (9.0-27.0) mg/dL Creatinine 0.8 (0.6-1.5) mg/dL Glucose 154 H (70-110) mg/dL Calcium 9.3 (8.7-10.3) mg/dL AST 10 L (13-35) U/L ALT 15 (8-44) U/L Alkaline Phosphatase 56 (41-126) U/L Total Protein 6.1 L (6.2-8.2) g/dL Albumin 3.8 (3.8-4.9) g/dL Calcium panel 03/18/23 Range/Units 06:30 Calcium 9.3 (8.7-10.3) mg/dL Albumin 3.8 (3.8-4.9) g/dL Pituitary panel 03/18/23 Range/Units 06:30 Sodium 138 (135-145) mmol/L Potassium 5.2 (3.5-5.5) mmol/L Chloride 104 (96-109) mmol/L Carbon Dioxide 25.9 (21.6-31.8) mmol/L BUN 12.3 (9.0-27.0) mg/dL Creatinine 0.8 (0.6-1.5) mg/dL Glucose 154 H (70-110) mg/dL Calcium 9.3 (8.7-10.3) mg/dL Adrenal panel 03/18/23 Range/Units 06:30 Sodium 138 (135-145) mmol/L Potassium 5.2 (3.5-5.5) mmol/L Chloride 104 (96-109) mmol/L Carbon Dioxide 25.9 (21.6-31.8) mmol/L BUN 12.3 (9.0-27.0) mg/dL Creatinine 0.8 (0.6-1.5) mg/dL Glucose 154 H (70-110) mg/dL Calcium 9.3 (8.7-10.3) mg/dL Total Bilirubin <0.2 L (0.3-1.2) mg/dL AST 10 L (13-35) U/L ALT 15 (8-44) U/L Alkaline Phosphatase 56 (41-126) U/L Total Protein 6.1 L (6.2-8.2) g/dL Albumin 3.8 (3.8-4.9) g/dL
--- NOTE | 2023-03-18 16:12 | US ---
EXAMINATION TYPE: US abdomen complete DATE OF EXAM: 03/18/2023 COMPARISON: CT 2022, 2020 CLINICAL INDICATION: Female, 42 years old with history of abd pain; Abdominal pain in epigastric area x 1 month. Hx ulcerative colitis. TECHNIQUE: Multiple sonographic images of the abdomen are obtained. FINDINGS: EXAM MEASUREMENTS: Liver Length: 15.3 cm Gallbladder Wall: 0.28 cm CBD: 0.55 cm Spleen: Limited measurement = 9.8 cm Right Kidney: 11.7 x 4.9 x 4.4 cm Left Kidney: 10.4 x 5.6 x 5.2 cm [employer] NOTES: Exam is limited due to gas. Pancreas: Limited visibility Liver: Appears slightly heterogeneous. Gallbladder: *2 hyperechoic areas seen within the gallbladder, difficult to determine if mobile or a ttached to the posterior gallbladder wall. Larger area measures: 0.2 x 0.2 x 0.3 cm. Evidence for sonographic Draper's sign: No CBD: Measures upper limits Spleen: Not well seen Right Kidney: Prominent renal pelvis. Left Kidney: No hydronephrosis or masses seen Upper IVC: Appears wnl Abd Aorta: Within normal limits. IMPRESSION: 1. No acute process. 2. Suspect subcentimeter cholelithiasis.
--- NOTE | 2023-03-18 16:18 | US ---
EXAMINATION TYPE: US pelvis complete transvag DATE OF EXAM: 03/18/2023 COMPARISON: CT 2022, 2020 CLINICAL INDICATION: Female, 42 years old with history of pain; Slight pain. Hx miscarriage, , left ovarian cyst, cervical cancer. . TECHNIQUE: Transvaginal (TV) and Transabdominal (TA) . Transabdominal sonographic images of the pel vis were acquired. Transvaginal sonographic images were medically necessary to better assess the fol lowing anatomy: Right ovary, endometrium. Date of LMP: Unknown per patient. EXAM MEASUREMENTS: Uterus: 9.4 x 4.9 x 3.9 cm Endometrial Stripe: 0.37 cm Right Ovary: not seen Left Ovary: 3.6 x 2.3 x 1.6 cm 1. Uterus: Anteverted Very heterogeneous. *Complex area seen in cervix: 1.0 x 0.5 x 0.4 cm. Calcifications seen within fundus, largest measures 0.3 x 0.3 x 0.3 cm. 2. Endometrium: 0.37 cm 3. Right Ovary: not seen 4. Left Ovary: Anechoic area seen within: 1.5 x 1.2 x 1.2 cm. Spectral, color and waveform doppler imaging shows good arterial and venous flow within the left ov randi. Right ovary was not seen. 5. Bilateral Adnexa: Anechoic area seen in left adnexa adjacent to left ovary measurin.0 x 2.7 x 1.9 cm. Seen transabdominally. Left ovary and this area were unable to be visualized transvaginall y. 6. Posterior cul-de-sac: Appears wnl IMPRESSION: 1. No evidence of acute process. 2. Slightly heterogenous area involving the cervix, may relate to reported history of cervical cancer .
[2023-03-18 17:13] LABS: Basophils # (A) 0.1 k/uL (0-0.2); Basophils % (A) 0 %; Eosinophils % (A) 0 %; HCT 41.9 % (34.0-46.0); HGB 13.7 gm/dL (11.4-16.0); Lymphocytes # (A) 2.1 k/uL (1.0-4.8); Lymphocytes % (A) 17 %; MCH 30.5 pg (25.0-35.0); MCHC 32.8 g/dL (31.0-37.0); MCV 93.1 fL (80.0-100.0); Mean Platelet Volume 7.5; Monocytes # (A) 0.8 k/uL (0-1.0); Monocytes % (A) 7 %; Neutrophils # (A) 9.3 k/uL (1.3-7.7); Neutrophils % (A) 75 %; Platelet Count 479 k/uL (150-450); RBC 4.51 m/uL (3.80-5.40); RDW 13.4 % (11.5-15.5); WBC 12.4 k/uL (3.8-10.6)
[2023-03-18 17:33] LABS: ALT 21 U/L (4-34); AST 21 U/L (14-36); African American GFR (CKD) >90 (>60 ml/min/1.73 sqM); Albumin 3.6 g/dL (3.5-5.0); Albumin/Globulin Ratio 1.3; Alkaline Phosphatase 56 U/L (38-126); Anion Gap 10 mmol/L; Blood Urea Nitrogen 14 mg/dL (7-17); Calcium 9.1 mg/dL (8.4-10.2); Carbon Dioxide 26 mmol/L (22-30); Chloride 101 mmol/L (98-107); Globulin 2.8 g/dL; Glucose 102 mg/dL (74-99); Non-African American GFR(CKD) >90 (>60 ml/min/1.73 sqM); Potassium 4.3 mmol/L (3.5-5.1); Sodium 137 mmol/L (137-145); Total Bilirubin 0.2 mg/dL (0.2-1.3); Total Protein 6.4 g/dL (6.3-8.2)
[2023-03-18] MEDS: DICYCLOMINE 20 MG TAB PO SCH ×2 (21:27→21:31)
[2023-03-19] MEDS: methylPREDNISolone SOD SUCCI 40 MG/ML 1 ML VIAL IV SCH ×2 (00:19→06:27)
[2023-03-19] MEDS: HYDROcodone/APAP 7.5-325MG 1 EACH TAB PO PRN ×2 (00:23→09:45)
[2023-03-19] MEDS: SODIUM CHLORIDE 0.9% 1,000 ML IV SCH ×3 (02:52→18:55)
--- NOTE | 2023-03-19 04:44 | PN ---
PROGRESS NOTE The patient is crying, anxious, and nervous. Still bleeding from her rectum. Getting first-dose Solu-Medrol. Get Surgical consult. Abdominal ultrasound. Give her anxiety medicines. Check CBC, Chem panel. Hemoglobin stabilizing at 13.7, white count 12.4. Sodium 137, potassium 4.3. Sugars were 102. Wait for GI recommendations, Surgical recommendations. Abdominal and pelvic ultrasounds have been done. Surgical recommendations will . The patient has had some improvement in last 24 hours. She is just very anxious, nervous. Wanted to go home today, which she cannot. Waiting for Surgery consult, GI recommendations. Wait for further recommendations. Please see further orders. MMODL / IJN: [id number] /
[2023-03-19] MEDS: DICYCLOMINE 20 MG TAB PO SCH ×4 (09:39→20:47)
[2023-03-19] MEDS: NICOTINE 14MG/24HR PATCH TRANSDERM SCH (09:39)
[2023-03-19] MEDS: MULTIVITAMINS, THERA 1 EACH TAB PO SCH (09:39)
[2023-03-19] MEDS: FAMOTIDINE 20 MG TAB PO SCH ×2 (09:39→20:45)
[2023-03-19] MEDS: MESALAMINE 400 MG PO SCH ×3 (09:39→20:48)
[2023-03-19 11:00] LABS: Iron 54 UG/DL (50-170)
--- NOTE | 2023-03-19 11:11 | P.PN ---
Subjective Progress Note Date: 03/19/23 Principal diagnosis: Ulcerative colitis Pleasant 42-year-old female diagnosed with ulcerative colitis in 2018 by colonoscopy. She follows with Dr. Woods. She currently is on Asacol 800 mg 3 times a day however states that sometimes she will only take a couple pills a day if she is not feeling bad. She was admitted to the hospital from 07/16/2010 723 for acute flareup of ulcerative colitis. States at that time she had abdominal pain was having 4-5 bloody stools a day. She was given IV steroids at that time and sent home on a short prednisone taper dose. She was tested for C. diff on 02/16/2023 and it was negative. States that abdominal pain started pretty bad yesterday, she had 3-4 loose bowel movements with blood clots. No blood in her stool today. She states her last flareup prior to this last admission was like 4 years ago. She denies any fevers or chills. No nausea or vomiting. She had a CT of the abdomen and pelvis on 02/17/2023 with no acute findings. 03/19/2023 Patient seen and examined today as a follow-up for ulcerative colitis exacerbation. She was admitted Sunday and seen by gastroenterology. She was started on Solu-Medrol 20 mg every 8 hours at that time. Apparently patient continued to have some abdominal pain and then started her period over the weekend. Her PCP Dr. Conner increased her steroids to Solu-Medrol 40 mg every 6 hours. Patient states that she got extremely anxious and was refusing her steroids due to the high-dose. She states abdominal pain has improved, she is having more menstrual-like cramping, bleeding has improved and she has only had 1 bowel movement daily which she states is formed but does have some blood following. No labs currently from today. Yesterday WBC 12.4 hemoglobin 13.7 platelet count 479,000. Likely leukocytosis from steroids. She denies any fever or chills. She had a abdominal ultrasound reporting no acute process. Suspect subcentimeter cholelithiasis. She also underwent a transvaginal ultrasound with no acute process noted. Objective - Vital Signs Vital signs: Vital Signs Temp 97.9 F 03/19/23 07:30 Pulse 67 03/19/23 07:30 Resp 17 03/19/23 07:30 BP 115/77 03/19/23 07:30 Pulse Ox 96 03/19/23 07:30 FiO2 Intake & Output 03/18/23 03/19/23 03/19/23 18:59 06:59 18:59 Intake Total 238 Balance 238 Intake: Oral 238 Other: Voiding Method Toilet Toilet # Voids 3 1 # Bowel Movements 1 - Exam General appearance: The patient is alert, oriented, appears in no acute distress. HET: Head is normocephalic and atraumatic. Conjunctiva pink. Sclera anicteric. Neck: Supple without lymphadenopathy. Abdomen: Soft, some mild mid to lower left quadrant tenderness, improved from Sunday. Nondistended. No guarding or rigidity. Extremities: Normal skin color and turgor. No pedal edema Skin: No rashes, no jaundice Neurological: No focal deficits. Alert and oriented. - Labs CBC & Chem 7: 03/18/23 16:30 03/18/23 16:30 Labs: Abnormal Lab Results - Last 24 Hours (Table) 03/18/23 03/18/23 03/18/23 Range/Units 06:30 06:30 16:30 WBC 11.32 H 12.4 H (4.50-10.00) X 10*3/uL MCHC 31.9 L (32.0-37.0) g/dL Plt Count 469 H 479 H (140-440) X 10*3/uL MPV 9.3 L (9.5-12.2) FL Neutrophils # 7.95 H 9.3 H (1.80-7.70) X 10*3/uL Eosinophils # 0 L (0.04-0.35) X 10*3/uL Glucose 154 H (70-110) mg/dL Total Bilirubin <0.2 L (0.3-1.2) mg/dL AST 10 L (13-35) U/L Total Protein 6.1 L (6.2-8.2) g/dL 03/18/23 Range/Units 16:30 WBC (4.50-10.00) X 10*3/uL MCHC (32.0-37.0) g/dL Plt Count (140-440) X 10*3/uL MPV (9.5-12.2) FL Neutrophils # (1.80-7.70) X 10*3/uL Eosinophils # (0.04-0.35) X 10*3/uL Glucose 102 H (70-110) mg/dL Total Bilirubin (0.3-1.2) mg/dL AST (13-35) U/L Total Protein (6.2-8.2) g/dL Assessment and Plan (1) Ulcerative colitis Narrative/Plan: 32-year-old female with known ulcerative colitis maintained on Desacol it 100 mg 3 times a day was recently hospitalized for acute flareup of her ulcerative colitis. She was sent home only on a short steroid Dosepak and finished about a week ago. She returns with abdominal pain and bloody diarrhea. Hemoglobin stable. She is afebrile and no leukocytosis. Last stool for C. diff was negat jaron on 02/16/2023. Likely recurrence due to short course of steroids. Will start IV Solu-Medrol 20 mg every 8 hours and transposition in 1-2 days to 40 mg by mouth daily with a taper of 5 mg weekly. This was discussed with the patient and prescription sent. No further workup by gastroenterology. Current Visit: Yes Status: Acute Code(s): K51.90 - ULCERATIVE COLITIS, UNSPECIFIED, WITHOUT COMPLICATIONS SNOMED Code(s): 27870845 (2) Abdominal pain Current Visit: Yes Status: Acute Code(s): R10.9 - UNSPECIFIED ABDOMINAL PAIN SNOMED Code(s): 06155013 Plan: 1. Continue symptomatic and supportive care 2. Continue low fiber/low residual diet 3. Decrease Solu-Medrol to 20 mg IV every 8 hours. Will transition to 40 mg by mouth and continue for discharge with taper of 5 mg per week. 4. Prednisone 40 mg taper dose sent to patient's pharmacy 5. Follow up with Dr. Woods in 2-3 weeks Thank you for this consultation, anticipate discharge later today or within the next [address] Jean Pierre Woods I agree with the dictator's note, documented as a scribe by Queenie Barger.
[2023-03-19] MEDS: clonazePAM 1 MG TAB PO PRN (13:21)
--- NOTE | 2023-03-19 14:16 | P.PN ---
Subjective Progress Note Date: 03/19/23 CHIEF COMPLAINT: Ulcerative colitis HISTORY OF PRESENT ILLNESS: Patient has had improvement in her abdominal pain since admission. She reports having a bloody bowel movement in the morning. She reports having formed stool followed by blood. She is currently on IV steroids. She is being evaluated by GI service. They've adjusts to steroids. Afebrile. WBC is up at 12.4 H she be stable at 13.7. Abdominal ultrasound no acute process suspect subcentimeter cholelithiasis PHYSICAL EXAM: VITAL SIGNS: Reviewed GENERAL: Well-developed in no acute distress. HEENT: No sclera icterus. Extraocular movements grossly intact. Moist buccal mucosa. Head is atraumatic, normocephalic. Hears conversational speech. No nasal drainage. NECK: Supple without lymphadenopathy. CHEST: Non-labored respirations and equal bilateral excursions. CARDIOVASCULAR: Palpable 2+ radial pulses. ABDOMEN: Soft. Nondistended. Tenderness to palpation of the mid abdomen and lower suprapubic area MUSCULOSKELETAL: No clubbing or cyanosis. NEUROLOGIC: No focal or lateralizing signs. Cranial nerves II through XII g rossly intact. PSYCH: Appropriate affect. Alert and oriented to person, place and time. SKIN: Well perfused. Good skin turgor. ASSESSMENT: 1. Abdominal pain 2. Ulcerative colitis exacerbation 3. GI bleed due to ulcerative colitis PLAN: -Continue IV steroids per GI recommendations -No surgical intervention planned -Surgical service remains on standby -Continue to monitor for any signs or symptoms of bleeding -Continue to monitor hemoglobin Physician Automatic Coin Machine Mechanic note has been reviewed by physician. Signing provider agrees with the documented findings, assessment, and plan of care. Objective - Vital Signs Vital signs: Vital Signs Temp 97.9 F 03/19/23 07:30 Pulse 67 03/19/23 08:00 Resp 17 03/19/23 08:00 BP 115/77 03/19/23 07:30 Pulse Ox 96 03/19/23 07:30 FiO2 Intake & Output 03/18/23 03/19/23 03/19/23 18:59 06:59 18:59 Intake Total 238 826 Balance 238 826 Intake: Oral 238 826 Other: Voiding Method Toilet Toilet Toilet # Voids 3 1 # Bowel Movements 1 - Labs CBC & Chem 7: 03/18/23 16:30 03/18/23 16:30 Labs: Abnormal Lab Results - Last 24 Hours (Table) 03/18/23 03/18/23 Range/Units 16:30 16:30 WBC 12.4 H (3.8-10.6) k/uL Plt Count 479 H (150-450) k/uL Neutrophils # 9.3 H (1.3-7.7) k/uL Glucose 102 H (74-99) mg/dL
[2023-03-19 15:12] VITALS: RESP 16
[2023-03-19] MEDS ORDERED: methylPREDNISolone SOD SUCCI 40 MG/ML 1 ML VIAL IV SCH (16:00)
[2023-03-19] MEDS: metroNIDAZOLE 500 MG TAB PO SCH ×2 (19:01→20:51)
[2023-03-19] MEDS: SYMBICORT 160-4.5 MCG INHALER INHALATION SCH (20:45)
[2023-03-19] MEDS: MORPHINE SULFATE 4 MG/ML SYRINGE IV PRN (20:45)
[2023-03-19] MEDS: predniSONE 50 MG TAB PO SCH (20:45)
[2023-03-19] MEDS ORDERED: MONTELUKAST 10 MG TAB PO SCH (21:00)
[2023-03-20] MEDS: SODIUM CHLORIDE 0.9% 1,000 ML IV SCH ×2 (03:36→13:24)
[2023-03-20] MEDS: MORPHINE SULFATE 4 MG/ML SYRINGE IV PRN (04:47)
--- NOTE | 2023-03-20 08:34 | P.PN ---
Subjective Progress Note Date: 03/20/23 Principal diagnosis: Ulcerative colitis Pleasant 42-year-old female diagnosed with ulcerative colitis in 2018 by colonoscopy. She follows with Dr. Woods. She currently is on Asacol 800 mg 3 times a day however states that sometimes she will only take a couple pills a day if she is not feeling bad. She was admitted to the hospital from 07/16/2010 723 for acute flareup of ulcerative colitis. States at that time she had abdominal pain was having 4-5 bloody stools a day. She was given IV steroids at that time and sent home on a short prednisone taper dose. She was tested for C. diff on 02/16/2023 and it was negative. States that abdominal pain started pretty bad yesterday, she had 3-4 loose bowel movements with blood clots. No blood in her stool today. She states her last flareup prior to this last admission was like 4 years ago. She denies any fevers or chills. No nausea or vomiting. She had a CT of the abdomen and pelvis on 02/17/2023 with no acute findings. 03/19/2023 Patient seen and examined today as a follow-up for ulcerative colitis exacerbation. She was admitted Sunday and seen by gastroenterology. She was started on Solu-Medrol 20 mg every 8 hours at that time. Apparently patient continued to have some abdominal pain and then started her period over the weekend. Her PCP Dr. Conner increased her steroids to Solu-Medrol 40 mg every 6 hours. Patient states that she got extremely anxious and was refusing her steroids due to the high-dose. She states abdominal pain has improved, she is having more menstrual-like cramping, bleeding has improved and she has only had 1 bowel movement daily which she states is formed but does have some blood following. No labs currently from today. Yesterday WBC 12.4 hemoglobin 13.7 platelet count 479,000. Likely leukocytosis from steroids. She denies any fever or chills. She had a abdominal ultrasound reporting no acute process. Suspect subcentimeter cholelithiasis. She also underwent a transvaginal ultrasound with no acute process noted. 03/20/2023 Patient is seen and examined lying in bed. States she is just tired. She is doing better. Abdominal pain improving. Bloody bowel movements are improving, she states she's having about one a day. 0 vomiting. She is tolerating a low fiber diet. Dr. Conner changed steroids to prednisone 50 mg daily. Discussed with patient that she will go home on a 40 mg dose daily for 1 week with tapering of 5 mg weekly. Objective - Vital Signs Vital signs: Vital Signs Temp 97.6 F 03/20/23 07:00 Pulse 63 03/20/23 07:00 Resp 16 03/20/23 07:00 BP 101/65 03/20/23 07:00 Pulse Ox 97 03/20/23 07:00 FiO2 Intake & Output 03/19/23 03/20/23 03/20/23 18:59 06:59 18:59 Intake Total 826 Balance 826 Intake: Oral 826 Other: Voiding Method Toilet Toilet # Voids 3 2 - Exam General appearance: The patient is alert, oriented, appears in no acute distress. HET: Head is normocephalic and atraumatic. Conjunctiva pink. Sclera anicteric. Neck: Supple without lymphadenopathy. Abdomen: Soft, some mild mid to lower left quadrant tenderness. Nondistended. No guarding or rigidity. Extremities: Normal skin color and turgor. No pedal edema Skin: No rashes, no jaundice Neurological: No focal deficits. Alert and oriented. - Labs CBC & Chem 7: 03/18/23 16:30 03/18/23 16:30 Assessment and Plan (1) Ulcerative colitis Narrative/Plan: 32-year-old female with known ulcerative colitis maintained on Desacol it 100 mg 3 times a day was recently hospitalized for acute flareup of her ulcerative colitis. She was sent home only on a short steroid Dosepak and finished about a week ago. She returns with abdominal pain and bloody diarrhea. Hemoglobin stable. She is afebrile and no leukocytosis. Last stool for C. diff was negative on 02/16/2023. Likely recurrence due to short course of steroids. Will start IV Solu-Medrol 20 mg every 8 hours and transposition in 1-2 days to 40 mg by mouth daily with a taper of 5 mg weekly. This was discussed with the patient and prescription sent. No further workup by gastroenterology. On ulcerative colitis improving. Bowel movements are improving in frequency and amount of bleeding. Recommend home with prednisone 40 mg daily, taper 5 mg weekly. This was discussed with patient. Prescription with 30 sent in. Recommend outpatient follow-up with gastroenterology in 2 weeks. Current Visit: Yes Status: Acute Code(s): K51.90 - ULCERATIVE COLITIS, UN SPECIFIED, WITHOUT COMPLICATIONS SNOMED Code(s): 13690100 (2) Abdominal pain Current Visit: Yes Status: Acute Code(s): R10.9 - UNSPECIFIED ABDOMINAL PAIN SNOMED Code(s): 79837603 Plan: 1. Continue symptomatic and supportive care 2. Continue low fiber/low residual diet 3. Patient will go home with prednisone 40 mg by mouth daily with tapering 5 mg weekly. Prescription sent to pharmacy last Sunday. 4. Patient is cleared by gastroenterology for discharge. Follow up with Dr. Woods in 2-3 weeks Thank you for this consultation, we will sign off at this time. Dr. Jean Pierre Woods I agree with the dictator's note, documented as a scribe by Queenie Barger.
[2023-03-20] MEDS: FAMOTIDINE 20 MG TAB PO SCH (08:45)
[2023-03-20] MEDS: MULTIVITAMINS, THERA 1 EACH TAB PO SCH (08:45)
[2023-03-20] MEDS: DICYCLOMINE 20 MG TAB PO SCH ×3 (08:45→13:24)
[2023-03-20] MEDS: metroNIDAZOLE 500 MG TAB PO SCH (08:45)
[2023-03-20] MEDS: predniSONE 50 MG TAB PO SCH (08:45)
[2023-03-20 08:47] LABS: Basophils # (A) 0.06 X 10*3/uL (0.00-0.10); Basophils % (A) 0.4 %; Eosinophils # (A) 0 X 10*3/uL (0.04-0.35); Eosinophils % (A) 0 %; HCT 42.3 % (37.2-46.3); HGB 14.1 g/dL (12.0-15.0); Lymphocytes # (A) 2.34 X 10*3/uL (0.90-5.00); Lymphocytes % (A) 14.6 %; MCH 30.3 pg (27.0-32.0); MCHC 33.3 g/dL (32.0-37.0); Mean Platelet Volume 9.3 FL (9.5-12.2); Monocytes % (A) 7.5 %; NRBC Per 100 WBC 0 X 10*3/uL (0.00-0.01); Neutrophils # (A) 11.77 X 10*3/uL (1.80-7.70); Neutrophils % (A) 73.1 %; Platelet Count 545 X 10*3/uL (140-440); RBC 4.65 X 10*6/uL (4.10-5.20); RDW 13.7 % (11.5-14.5); WBC 16.07 X 10*3/uL (4.50-10.00)
[2023-03-20] MEDS: MESALAMINE 400 MG PO SCH (08:49)
[2023-03-20] MEDS: NICOTINE 14MG/24HR PATCH TRANSDERM SCH (08:49)
[2023-03-20] MEDS: HYDROcodone/APAP 7.5-325MG 1 EACH TAB PO PRN (09:01)
[2023-03-20] MEDS: clonazePAM 1 MG TAB PO PRN (09:01)
[2023-03-20] MEDS: SYMBICORT 160-4.5 MCG INHALER INHALATION SCH (09:17)
--- NOTE | 2023-03-20 12:55 | P.PN ---
Subjective Progress Note Date: 03/20/23 CHIEF COMPLAINT: Ulcerative colitis HISTORY OF PRESENT ILLNESS: Patient reports that she continues to feel better each day. Patient did pass some blood yesterday morning. But since then has had no further bleeding. And currently she denies any abdominal pain. She reports that she is likely being discharged today. She was started on oral steroids. PHYSICAL EXAM: VITAL SIGNS: Reviewed GENERAL: Well-developed in no acute distress. HEENT: No sclera icterus. Extraocular movements grossly intact. Moist buccal mucosa. Head is atraumatic, normocephalic. Hears conversational speech. No nasal dr ainage. NECK: Supple without lymphadenopathy. CHEST: Non-labored respirations and equal bilateral excursions. CARDIOVASCULAR: Palpable 2+ radial pulses. ABDOMEN: Soft. Nondistended. nontender MUSCULOSKELETAL: No clubbing or cyanosis. NEUROLOGIC: No focal or lateralizing signs. Cranial nerves II through XII grossly intact. PSYCH: Appropriate affect. Alert and oriented to person, place and time. SKIN: Well perfused. Good skin turgor. ASSESSMENT: 1. Abdominal pain 2. Ulcerative colitis exacerbation 3. GI bleed due to ulcerative colitis PLAN: -Patient can be discharged from surgical standpoint -Continue oral steroids per GI recommendations -Recommend follow up with GI service outpatient Physician Gas Well Pumper note has been reviewed by physician. Signing provider agrees with the documented findings, assessment, and plan of care. Objective - Vital Signs Vital signs: Vital Signs Temp 97.6 F 03/20/23 07:00 Pulse 63 03/20/23 07:00 Resp 16 03/20/23 07:00 BP 101/65 03/20/23 07:00 Pulse Ox 97 03/20/23 07:00 FiO2 Intake & Output 03/19/23 03/20/23 03/20/23 18:59 06:59 18:59 Intake Total 826 Balance 826 Intake: Oral 826 Other: Voiding Method Toilet Toilet # Voids 3 2 - Labs CBC & Chem 7: 03/20/23 06:06 03/18/23 16:30 Labs: Abnormal Lab Results - Last 24 Hours (Table) 03/20/23 Range/Units 06:06 WBC 16.07 H (4.50-10.00) X 10*3/uL Plt Count 545 H (140-440) X 10*3/uL MPV 9.3 L (9.5-12.2) FL Neutrophils # 11.77 H (1.80-7.70) X 10*3/uL Monocytes # 1.20 H (0.20-1.00) X 10*3/uL Eosinophils # 0 L (0.04-0.35) X 10*3/uL
[2023-03-20 13:28] VITALS: BP 134/89; PULSE 71; TEMP 98.1
== END 2023-03-20 14:23 | disposition home or self-care (01) | DRG 386 ==
LOC: EC 16:04 → 6NMEDSUR 22:08 → OBSVTOIN 22:09 → 6NMEDSUR 23:15
PROVIDERS: ADMIT Family Medicine; ATTEND Family Medicine
DX: K51.911 Ulcerative colitis, unspecified with rectal bleeding (principal); E87.20 Acidosis, unspecified; Z28.311 Partially vaccinated for COVID-19; E86.0 Dehydration; J44.89 Other specified chronic obstructive pulmonary disease; F41.9 Anxiety disorder, unspecified; F17.290 Nicotine dependence, other tobacco product, uncomplicated; D72.829 Elevated white blood cell count, unspecified; T38.0X5A Adverse effect of glucocorticoids and synthetic analogues, initial encounter; Z71.6 Tobacco abuse counseling; Z79.52 Long term (current) use of systemic steroids; Z79.899 Other long term (current) drug therapy; Z85.41 Personal history of malignant neoplasm of cervix uteri; Z86.19 Personal history of other infectious and parasitic diseases; Z88.1 Allergy status to other antibiotic agents; Z88.5 Allergy status to narcotic agent; Z88.8 Allergy status to other drugs, medicaments and biological substances
CPT/HCPCS: 36415; 76700; 76830; 76856; 80053; 81001; 81025; 82150; 83540; 83605; 83690; 85025; 86140; 93976; 94640; 96361; 96374; 96375; 96376; 99285

== ENCOUNTER → 2023-08-15 | Outpatient (CLI) | payer BC, OTHER ==
[2023-08-15 15:50] LABS: Basophils # (A) 0.06 X 10*3/uL (0.00-0.10); Basophils % (A) 0.7 %; Eosinophils % (A) 2.3 %; HGB 13.9 g/dL (12.0-15.0); Lymphocytes # (A) 2.56 X 10*3/uL (0.90-5.00); Lymphocytes % (A) 29.7 %; MCH 29.8 pg (27.0-32.0); MCHC 32.3 g/dL (32.0-37.0); MCV 92.1 FL (80.0-97.0); Mean Platelet Volume 9.9 FL (9.5-12.2); Monocytes # (A) 0.66 X 10*3/uL (0.20-1.00); Monocytes % (A) 7.7 %; NRBC Per 100 WBC 0 X 10*3/uL (0.00-0.01); Neutrophils # (A) 5.12 X 10*3/uL (1.80-7.70); Neutrophils % (A) 59.4 %; Platelet Count 409 X 10*3/uL (140-440); RBC 4.67 X 10*6/uL (4.10-5.20); RDW 13.4 % (11.5-14.5); WBC 8.62 X 10*3/uL (4.50-10.00)
[2023-08-15 16:19] LABS: Chol/HDL Ratio 3.89 Ratio; Iron 32 UG/DL (50-170); LDL Cholesterol,Calculated 134.6 mg/dL (0.0-131.0); VLDL Calculation 17.74 mg/dL (5.00-40.00)
[2023-08-16 12:44] LABS: Alt. alternata IgE Class CLASS 0; Alternaria alternata IgE <0.10 kU/L (<0.10); Asperg. fumagatus IgE <0.10 kU/L (<0.10); Asperg. fumagatus IgE Class CLASS 0; Bermuda Grass IgE <0.10 kU/L (<0.10); Birch(Com.Silvr) IgE <0.10 kU/L (<0.10); Birch(Com.Silvr) IgE Class CLASS 0; Cat Epith & Dander IgE <0.10 kU/L (<0.10); Cat Epith & Dander IgE Class CLASS 0; Clad herbarum IgE <0.10 kU/L (<0.10); Clad herbarum IgE Class CLASS 0; Cockroach IgE <0.10 kU/L (<0.10); Cottonwood IgE <0.10 kU/L (<0.10); Dermato. Pteronyssinus Class CLASS 0; Dermato. Pteronyssinus IgE <0.10 kU/L (<0.10); Dermato. farinae IgE <0.10 kU/L (<0.10); Dermato. farinae IgE Class CLASS 0; Dog Dander IgE <0.10 kU/L (<0.10); Elm IgE <0.10 kU/L (<0.10); IgE (Allergen) 11.2 IU/mL (<114.0); Maple (Box Elder) IgE <0.10 kU/L (<0.10); Maple (Box Elder) IgE Class CLASS 0; Mountain Cedar IgE <0.10 kU/L (<0.10); Mountain Cedar IgE Class CLASS 0; Mouse Urine IgE Class CLASS 0; Mouse Urine Proteins,IgE <0.10 kU/L (<0.10); Nettle IgE <0.10 kU/L (<0.10); Nettle IgE Class CLASS 0; Oak IgE <0.10 kU/L (<0.10); Penicillium chrysogenum IgE <0.10 kU/L (<0.10); Penicillium chrysogenum IgE Cl CLASS 0; Rough Marshelder IgE <0.10 kU/L (<0.10); Rough Marshelder IgE Class CLASS 0; Timothy Grass IgE <0.10 kU/L (<0.10); Timothy Grass IgE Class CLASS 0; White Ash IgE Class CLASS 0
[2023-08-16 20:51] LABS: Clam IgE <0.10 kU/L; Codfish IgE <0.10 kU/L; Egg White IgE <0.10 kU/L; Peanut IgE <0.10 kU/L; Scallop IgE <0.10 kU/L; Shrimp IgE <0.10 kU/L; Soybean IgE <0.10 kU/L; Walnut IgE (Food) <0.10 kU/L
[2023-08-16 22:17] LABS: Immunoglobulin E 9.27 IU/mL (0.00-114.00)
== END | disposition home or self-care (01) ==
LOC: LABWHC1 11:22
PROVIDERS: ATTEND Family Medicine
DX: I10 Essential (primary) hypertension (principal); J44.9 Chronic obstructive pulmonary disease, unspecified; G47.33 Obstructive sleep apnea (adult) (pediatric); Z79.899 Other long term (current) drug therapy
CPT/HCPCS: 36415; 80061; 82785; 83036; 83540; 84443; 85025; 86003

== ENCOUNTER → 2023-10-11 | Outpatient (CLI) | payer BC, OTHER | END | disposition home or self-care (01) | LOC: LABWHC1 14:07 | PROVIDERS: ATTEND Family Medicine | DX: Z11.1 Encounter for screening for respiratory tuberculosis (principal) | CPT/HCPCS: 36415; 86480 ==

== ENCOUNTER 2024-04-21 13:16 | Emergency (ER) | payer BC, OTHER ==
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
--- NOTE | 2024-04-21 14:07 | XR ---
EXAMINATION TYPE: XR Hip RT and AP Pelvis, XR femur RT DATE OF EXAM: 04/21/2024 COMPARISON: NONE CLINICAL INDICATION: Female, 43 years old with history of pain; TECHNIQUE: A single AP view of the pelvis is obtained. Two views of the right hip and femur are obtai butch. FINDINGS: There is no acute fracture/dislocation evident in the pelvis. The hip and sacroiliac join ts appear symmetric and unremarkable. Pubic symphysis is intact. Two views of right hip and femur show no acute fracture or dislocation. A few scattered tiny pelvic phleboliths are incidentally noted. Mild to moderate tricompartment joint space loss involving the r ight knee is seen. IMPRESSION: There is no acute fracture or dislocation in the pelvis, right hip, or right femur. [facility], , 04/21/2024 2:05 PM
[2024-04-21] MEDS: HYDROmorphone 0.5 MG/0.5 ML SYRINGE IVP STA ×2 (14:15→16:46)
[2024-04-21] MEDS: ONDANSETRON 4 MG/2 ML VIAL IVP STA (14:20)
[2024-04-21 14:56] LABS: Basophils % (A) 0 %; Eosinophils # (A) 0.1 k/uL (0-0.7); Eosinophils % (A) 1 %; HCT 39.3 % (34.0-46.0); HGB 13.1 gm/dL (11.4-16.0); Lymphocytes # (A) 1.2 k/uL (1.0-4.8); Lymphocytes % (A) 6 %; MCH 29.3 pg (25.0-35.0); MCHC 33.3 g/dL (31.0-37.0); Mean Platelet Volume 6.4; Monocytes # (A) 0.8 k/uL (0-1.0); Monocytes % (A) 4 %; Neutrophils # (A) 18.7 k/uL (1.3-7.7); Neutrophils % (A) 89 %; Platelet Count 607 k/uL (150-450); RBC 4.47 m/uL (3.80-5.40); RDW 12.6 % (11.5-15.5)
[2024-04-21 15:15] LABS: Partial Thromboplastin Time 25.6 sec (22.0-30.0); Prothrombin Time 10.9 sec (10.0-12.5)
[2024-04-21 15:18] LABS: ALT 12 U/L (4-34); African American GFR (CKD) >90 (>60 ml/min/1.73 sqM); Albumin 3.9 g/dL (3.5-5.0); Anion Gap 10 mmol/L; Blood Urea Nitrogen 13 mg/dL (7-17); Carbon Dioxide 24 mmol/L (22-30); Chloride 102 mmol/L (98-107); Glucose 117 mg/dL (74-99); Non-African American GFR(CKD) >90 (>60 ml/min/1.73 sqM); Sodium 136 mmol/L (137-145); Total Bilirubin 0.5 mg/dL (0.2-1.3); Total Protein 7.2 g/dL (6.3-8.2)
[2024-04-21 15:20] LABS: AST 24 U/L (14-36); Alkaline Phosphatase 83 U/L (38-126); Potassium 4.3 mmol/L (3.5-5.1)
[2024-04-21 15:33] LABS: Appearance,Urine Cloudy (Clear); Bilirubin,Urine Negative (Negative); Blood,Urine Moderate (Negative); Color,Urine Yellow; Glucose,Urine (UA) Negative (Negative); Ketones,Urine Negative (Negative); Leukocyte Esterase,Urine Moderate (Negative); Mucus,Urine Many /hpf; Nitrite,Urine Negative (Negative); Protein,Urine 1+ (Negative); RBC,Urine 15 /hpf (0-5); Specific Gravity,Urine 1.022 (1.001-1.035); Squamous Epithelial Cell,Urine 7 /hpf (0-4); WBC,Urine 31 /hpf (0-5)
[2024-04-21 15:34] LABS: HCG,Quantitative Serum <2.4 mIU/mL
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
[2024-04-21 16:53] VITALS: BP 105/73; PULSE 88; RESP 18; TEMP 98.3
== END 2024-04-21 16:53 | disposition home or self-care (01) ==
LOC: EC 13:16
DX: S30.0XXA Contusion of lower back and pelvis, initial encounter (principal); R00.0 Tachycardia, unspecified; F17.290 Nicotine dependence, other tobacco product, uncomplicated; Z88.5 Allergy status to narcotic agent; Z88.1 Allergy status to other antibiotic agents; Z88.8 Allergy status to other drugs, medicaments and biological substances; V43.92XA Unspecified car occupant injured in collision with other type car in traffic accident, initial encounter; Y92.410 Unspecified street and highway as the place of occurrence of the external cause
CPT/HCPCS: 99284 ×2; 36415; 80053; 85025; 85610; 85730; 81001; 84702; 73502; 73552; 74177; 96374; 96375; 96376; J2405; J1171; Q9967

== ENCOUNTER → 2024-05-08 | Outpatient (CLI) | payer BC ==
[2024-05-09 09:21] LABS: Influenza A Not Detected (Not Detectd); Influenza B Not Detected (Not Detectd); RSV Detected (Not Detectd)
== END | disposition home or self-care (01) ==
LOC: LABWHC1 12:42
PROVIDERS: ATTEND Family Medicine
DX: Z20.822 Contact with and (suspected) exposure to COVID-19 (principal); B89 Unspecified parasitic disease
CPT/HCPCS: 87635; 87636

== ENCOUNTER → 2024-06-19 | Outpatient (CLI) | payer BC ==
[2024-06-19 15:02] LABS: Basophils # (A) 0.02 X 10*3/uL (0.00-0.10); Basophils % (A) 0.1 %; Eosinophils # (A) 0.09 X 10*3/uL (0.04-0.35); Eosinophils % (A) 0.6 %; HCT 37.3 % (37.2-46.3); HGB 11.5 g/dL (12.0-15.0); Lymphocytes # (A) 2.23 X 10*3/uL (0.90-5.00); Lymphocytes % (A) 15.8 %; MCH 27.4 pg (27.0-32.0); MCHC 30.8 g/dL (32.0-37.0); Mean Platelet Volume 8.9 FL (9.5-12.2); Monocytes # (A) 1.18 X 10*3/uL (0.20-1.00); Monocytes % (A) 8.3 %; NRBC Per 100 WBC 0 X 10*3/uL (0.00-0.01); Neutrophils # (A) 10.57 X 10*3/uL (1.80-7.70); Neutrophils % (A) 74.8 %; Platelet Count 681 X 10*3/uL (140-440); RBC 4.19 X 10*6/uL (4.10-5.20); RDW 14.9 % (11.5-14.5); WBC 14.14 X 10*3/uL (4.50-10.00)
[2024-06-19 15:11] LABS: ALT 8 U/L (8-44); AST 11 U/L (13-35); Albumin 3.9 g/dL (3.8-4.9); Alkaline Phosphatase 90 U/L (41-126); Blood Urea Nitrogen 15.2 mg/dL (9.0-27.0); Calcium 9.6 mg/dL (8.7-10.3); Carbon Dioxide 25.1 mmol/L (21.6-31.8); Chloride 110 mmol/L (96-109); Glucose 116 mg/dL (70-110); Potassium 4.1 mmol/L (3.5-5.5); Sodium 150 mmol/L (135-145); Total Bilirubin <0.2 mg/dL (0.3-1.2); Total Protein 6.9 g/dL (6.2-8.2)
== END | disposition home or self-care (01) ==
LOC: LABWHC1 10:10
PROVIDERS: ATTEND Internal Medicine Gastroenterology
DX: K51.00 Ulcerative (chronic) pancolitis without complications (principal)
CPT/HCPCS: 36415; 80053; 85025

== ENCOUNTER 2024-06-20 12:14 | Day surgery (SDC) | payer BC ==
[2024-05-06 09:30] VITALS: BMI 29.2
[~2024-06-20 12:14] MED LIST: LACTATED RINGERS 1,000 ML IV SCH; LIDOCAINE 1% (10MG/ML) FOR IV START INTRADERMA PRN
[2024-06-20 12:58] VITALS: TEMP 97.2
[2024-06-20 13:07] LABS: Glucose,Whole Blood 116 mg/dL (70-110)
[2024-06-20] MEDS: LACTATED RINGERS 1,000 ML IV ONE (13:07)
[2024-06-20] MEDS ORDERED: PROPOFOL 10 MG/ML 20 ML VIAL IV ONE (13:28)
[2024-06-20] MEDS ORDERED: LIDOCAINE 1% INJ 10MG/ML (20 ML MDV) ONE (13:28)
--- NOTE | 2024-06-20 13:45 | P.PCN ---
Date of Procedure: 06/20/24 Procedure(s) Performed: BRIEF HISTORY: Patient is a 44-year-old pleasant female scheduled for an elective colonoscopy as a part for screening for longstanding history of ulcerative colitis diagnosed in 2017. Recently had a flareup in January 2024 and was treated with steroids for 3 months. She was doing well and was scheduled for screening colonoscopy today in the meantime about 3 days ago she started having rectal bleeding with 3-4 bowel movements daily. She was restarted back on the prednisone 30 mg daily about 3 days ago. PROCEDURE PERFORMED: Colonoscopy with biopsy.. PREOPERATIVE DIAGNOSIS: Screening for longstanding history of ulcerative colitis. IV sedation per Anesthesia. PROCEDURE: After informed consent was obtained, the patient, was brought into the endoscopy unit. IV sedation was administered by Anesthesia under continuous monitoring. Digital rectal examination was normal. Initially the Olympus CF-160 flexible video colonoscope was then inserted in the rectum, gradually advanced into the cecum without any difficulty. Careful examination was performed as the scope was gradually being withdrawn. Ileocecal valve and the appendiceal orifice were visualized and appeared normal. Prep was excellent. Ileum was intubated and 20 cm visualized and appeared normal. Mucosa of the cecum, ascending colon, transverse colon, appeared normal. Mucosa of the descending colon, sigmoid colon had deep serpiginous ulcerations with cobblestoning of the mucosa extending from 30 to 60 cm from the anal verge status post multiple biopsies to evaluate for Crohn's disease. Mucosa of the rectum had patchy areas of erythema but in the distal rectum upon retroflexion there was deep serpiginous ulceration identified which was biopsied.Retroflexion was performed in the rectum and no lesions were seen. The patient tolerated the procedure well. IMPRESSION: 1. Active colitis involving the sigmoid colon and the descending colon extending from 30 to 60 cm from the anal verge to the deep serpiginous ulcerations and cobblestoning of the mucosa consistent with inflammatory bowel disease status post multiple biopsies 2. Mild patchy areas of erythema noted in the rectum and distal rectal ulceration s/p biopsy 3. Mucosa of the cecum, ascending colon and transverse colon appeared normal 4. Normal-appearing TI terminal ileum RECOMMENDATIONS: Findings of this examination were discussed with the patient as well as her family.. She was advised to follow-up with the biopsy results. Continue with prednisone 30 mg daily and tapering by 5 mg every 2 weeks. She was advised to follow-up in the office next week and will discuss with the patient regarding Biologics for management of inflammatory bowel disease.
[2024-06-20 14:18] VITALS: BP 103/63; PULSE 71; RESP 20
[2024-06-20] MEDS: ONDANSETRON 4 MG/2 ML VIAL IVP STA (14:52)
[2024-06-20] MEDS: HYDROcodone/APAP 5-325MG 1 EACH TAB PO PRN (14:52)
== END 2024-06-20 15:30 ==
LOC: ORWHC2ENDO 12:14
PROVIDERS: ATTEND Internal Medicine Gastroenterology
DX: Z12.11 Encounter for screening for malignant neoplasm of colon (principal); K51.011 Ulcerative (chronic) pancolitis with rectal bleeding; K51.018 Ulcerative (chronic) pancolitis with other complication; K51.211 Ulcerative (chronic) proctitis with rectal bleeding; Z79.52 Long term (current) use of systemic steroids; Z79.51 Long term (current) use of inhaled steroids; Z79.899 Other long term (current) drug therapy; Z85.41 Personal history of malignant neoplasm of cervix uteri
CPT/HCPCS: 81025; 88305; 45380; J2405; J2003; J2704

== ENCOUNTER → 2024-06-27 | Outpatient (CLI) | payer BC ==
[2024-06-27 18:57] LABS: Hepatitis B Surface Antigen Nonreactive (Nonreactive); Hepatitis C IgG Antibody Nonreactive (Nonreactive)
== END | disposition home or self-care (01) ==
LOC: LABWHC1 13:02
PROVIDERS: ATTEND Internal Medicine Gastroenterology
DX: K51.00 Ulcerative (chronic) pancolitis without complications (principal)
CPT/HCPCS: 36415; 86480; 86704; 86803; 87340

== ENCOUNTER → 2024-10-23 | Outpatient (CLI) | payer BC ==
[2024-10-23 19:46] LABS: ALT 16 U/L (8-44); AST 21 U/L (13-35); Albumin 4.4 g/dL (3.8-4.9); Albumin/Globulin Ratio 1.63 Ratio (1.60-3.17); Alkaline Phosphatase 83 U/L (41-126); Anion Gap 12.00 mmol/L (4.00-12.00); BUN/Creat Ratio 20.75 Ratio (12.00-20.00); Blood Urea Nitrogen 16.6 mg/dL (9.0-27.0); Calcium 9.4 mg/dL (8.7-10.3); Carbon Dioxide 25.0 mmol/L (21.6-31.8); Chloride 102 mmol/L (96-109); Globulin 2.7 g/dL (1.6-3.3); Glucose 100 mg/dL (70-110); Potassium 4.9 mmol/L (3.5-5.5); Sodium 139 mmol/L (135-145); Total Protein 7.1 g/dL (6.2-8.2)
[2024-10-23 20:05] LABS: HCT 40.3 % (37.2-46.3); HGB 12.4 g/dL (12.0-15.0); MCH 26.6 pg (27.0-32.0); MCHC 30.8 g/dL (32.0-37.0); MCV 86.5 FL (80.0-97.0); NRBC Per 100 WBC 0 X 10*3/uL (0.00-0.01); Platelet Count 564 X 10*3/uL (140-440); RBC 4.66 X 10*6/uL (4.10-5.20); RDW 17.6 % (11.5-14.5); WBC 13.01 X 10*3/uL (4.50-10.00)
== END | disposition home or self-care (01) ==
LOC: LABWHC1 14:02
PROVIDERS: ATTEND Internal Medicine Gastroenterology
DX: K51.00 Ulcerative (chronic) pancolitis without complications (principal)
CPT/HCPCS: 36415; 80053; 83993; 85027; 85652; 86140